=== PATIENT | female | born 1960 | race Caucasian/White ===

== ENCOUNTER → 2023-04-08 | Outpatient (CLI) | payer MEDICARE | LOC: LAB.WCP 08:00 | PROVIDERS: ATTEND Physician Assistant Medical | DX: U07.1 COVID-19 (principal) ==

== ENCOUNTER 2025-02-10 14:29 | Inpatient (IN) ==
--- NOTE | 2025-02-10 14:40 | ED Physician Documentation ---
PD HPI ALTERED MENTAL STATUS Stated complaint Stated Complaint: AMS Chief complaint Chief Complaint: Neuro Additional information Additional information: 65-year-old female with history of type 2 diabetes, renal calculi, breast cancer, cellulitis comes into the emergency department via ambulance today as she was found altered in her hotel room. Her daughter is at bedside who she is here visiting from out of town and she normally lives in [place]. Her daug hter says that she talked to her on the phone yesterday and she seemed to be at baseline today she tried getting a hold of her mother multiple times and was unable to reach her so she had hotel staff to go check on her mom and she I will sign up for him on my way was found down and asking for help. Patient arrives confused she is unable to contribute much to what brings her in today most information is provided by her daughter who is at bedside. Patient is disheveled and very soiled in urine. She is unable to tell me if she is having recent falls but she was found in bed unsure if she is any fevers or chills. [place] Coma Scale Assess Eye opening: Spontaneous Verbal response: Confused Motor response: Obeys Commands Total score: 14 Meds/Allgy Allergies Allergies Allergy/AdvReac Type Severity Reaction Status Date / Time No Known Drug Allergies Allergy Verified 02/10/25 14:45 PFSH Active Problems All Active Problems (Updated 02/10/25 @ 20:38 by Jacki Tabares DNP) Acute metabolic encephalopathy (Acute) Sepsis (Acute) COPD (chronic obstructive pulmonary disease) (Chronic) Aortic valve stenosis (Acute) Pacemaker (Acute) Diabetes mellitus (Chronic) Renal calculus, left (Acute) Acute pyelonephritis (Acute) Social History Social History Smoking Status: Unknown if ever smoked Second hand tobacco smoke exposure: No Do you dip or chew tobacco?: No Do you vape?: No Level: Independent Do you feel safe in your home environment?: Yes History of physical, verbal, emotional, or financial abuse?: No Exam Exam Vital Signs: Vital Signs x48h Temp Pulse Resp BP Pulse Ox 02/10/25 16:51 94 18 168/63 H 95 02/10/25 14:45 89 18 137/76 H 97 02/10/25 14:39 37.0 C 90 18 139/75 H 92 Constitutional abnormal general appearance (disheveled), (chronically ill), (lethargic) and (appears older than stated age), distress noted, abnormal body habitus (overweight), limitations noted (altered mental status) and alert HENMT normocephalic and head/scalp atraumatic Eyes PERRL, EOMs intact bilaterally, conjunctivae normal and alignment normal Neck/C-Spine visual inspection normal Lymph no lymphadenopathy noted Chest inspection of chest normal and palpation of chest normal Respiratory breath sounds equal bilaterally, normal respiratory effort and clear to auscultation bilaterally Cardiovascular normal heart rate noted and regular rhythm noted Gastrointestinal abdomen normal to inspection Genitourinary Left CVA tenderness Neurology no movement abnormality noted, no focal motor deficit noted, speech normal, coordination normal and no pronator drift noted Psychiatry mental status grossly normal, orientation abnormal (disoriented to person) and thought process abnormality noted (confused) and (loose associations) Skin pale Results Vitals Vitals: Vital Signs - 24 hr 02/10/25 14:39 02/10/25 14:45 02/10/25 16:51 Temperature 37.0 C Temperature Source Temporal Artery Scan Pulse Rate 90 89 94 Respiratory Rate 18 18 18 Blood Pressure 139/75 H 137/76 H 168/63 H O2 Saturation 92 97 95 O2 Source Room air Room air Room air Pain Intensity 6 6 0 Oxygen O2 Source Room air Labs Labs: Laboratory Tests 02/10/25 02/10/25 02/10/25 15:24 15:24 15:24 WBC 14.9 H RBC 5.18 Hgb 11.6 L Hct 38.1 MCV 73.6 L MCH 22.4 L MCHC 30.4 L RDW 23.3 H Plt Count 151 Neut # (Auto) Not Reportable Lymph # (Auto) Not Reportable Thayer # (Auto) Not Reportable Eos # (Auto) Not Reportable Baso # (Auto) Not Reportable Absolute Nucleated RBC Not Reportable Total Counted 100 Band Neuts % (Manual) 8 Abnorm Lymph % (Manual) 0 Metamyelocytes % 1 H Nucleated RBC % Not Reportable Neutrophils # (Manual) 13.4 H Lymphocytes # (Manual) 0.6 L Monocytes # (Manual) 0.7 Eosinophils # (Manual) 0.0 Basophils # (Manual) 0.0 Differential Comment MANUAL DIFFERENTIAL WBC Morphology 1+ HYPERSEG NEUT PELGER HUET ANOMALY Platelet Estimate NORMAL (130-450,000) Platelet Morphology 1+ LARGE PLATELETS RBC Morph Micro Appear 2+ ANISOCYTOSIS 1+ MACROCYTOSIS Sodium Potassium Chloride Carbon Dioxide Anion Gap BUN Creatinine Estimated GFR (MDRD) Glucose Lactic Acid Calcium Magnesium Total Bilirubin AST ALT Alkaline Phosphatase Total Creatine Kinase Total Protein Albumin Globulin Albumin/Globulin Ratio TSH Free T4 Direct Urine Color Urine Clarity Urine pH Ur Specific Page Urine Protein Urine Glucose (UA) Urine Ketones Urine Occult Blood Urine Nitrite Urine Bilirubin Urine Urobilinogen Ur Leukocyte Esterase Urine RBC Urine WBC Urine WBC Clumps Ur Squamous Epith Cells Urine Bacteria Urine Culture Comments Urine Opiates Screen Ur Buprenorphine Scrn Ur Oxycodone Screen Urine Methadone Screen Urine Fentanyl Screen Ur Barbiturates Screen Ur Tricyclics Screen Ur Phencyclidine Scrn Ur Amphetamine Screen U Methamphetamines Scrn U Benzodiazepines Scrn Urine Cocaine Screen U Cannabinoids Screen Ur Drug Screen Comment Ethyl Alcohol Serum Ketones 02/10/25 02/10/25 02/10/25 15:24 15:24 15:25 WBC RBC Hgb Hct MCV MCH MCHC RDW Plt Count Neut # (Auto) Lymph # (Auto) Thayer # (Auto) Eos # (Auto) Baso # (Auto) Absolute Nucleated RBC Total Counted Band Neuts % (Manual) Abnorm Lymph % (Manual) Metamyelocytes % Nucleated RBC % Neutrophils # (Manual) Lymphocytes # (Manual) Monocytes # (Manual) Eosinophils # (Manual) Basophils # (Manual) Differential Comment WBC Morphology Platelet Estimate Platelet Morphology RBC Morph Micro Appear 1+ MICROCYTOSIS 1+ POLYCHROMASIA Sodium 139 Potassium 4.1 Chloride 104 Carbon Dioxide 26 Anion Gap 9.0 BUN 29 H Creatinine 1.0 Estimated GFR (MDRD) 56 L Glucose 359 H Lactic Acid 1.9 Calcium 9.1 Magnesium 1.8 Total Bilirubin 0.6 AST 25 ALT 23 Alkaline Phosphatase 122 H Total Creatine Kinase 183 Total Protein 6.3 L Albumin 3.5 Globulin 2.8 Albumin/Globulin Ratio 1.3 TSH 10.27 H Free T4 Direct 0.66 Urine Color Urine Clarity Urine pH Ur Specific Page Urine Protein Urine Glucose (UA) Urine Ketones Urine Occult Blood Urine Nitrite Urine Bilirubin Urine Urobilinogen Ur Leukocyte Esterase Urine RBC Urine WBC Urine WBC Clumps Ur Squamous Epith Cells Urine Bacteria Urine Culture Comments Urine Opiates Screen Ur Buprenorphine Scrn Ur Oxycodone Screen Urine Methadone Screen Urine Fentanyl Screen Ur Barbiturates Screen Ur Tricyclics Screen Ur Phencyclidine Scrn Ur Amphetamine Screen U Methamphetamines Scrn U Benzodiazepines Scrn Urine Cocaine Screen U Cannabinoids Screen Ur Drug Screen Comment Ethyl Alcohol < 10.0 Serum Ketones NEGATIVE 02/10/25 16:00 WBC RBC Hgb Hct MCV MCH MCHC RDW Plt Count Neut # (Auto) Lymph # (Auto) Thayer # (Auto) Eos # (Auto) Baso # (Auto) Absolute Nucleated RBC Total Counted Band Neuts % (Manual) Abnorm Lymph % (Manual) Metamyelocytes % Nucleated RBC % Neutrophils # (Manual) Lymphocytes # (Manual) Monocytes # (Manual) Eosinophils # (Manual) Basophils # (Manual) Differential Comment WBC Morphology Platelet Estimate Platelet Morphology RBC Morph Micro Appear Sodium Potassium Chloride Carbon Dioxide Anion Gap BUN Creatinine Estimated GFR (MDRD) Glucose Lactic Acid Calcium Magnesium Total Bilirubin AST ALT Alkaline Phosphatase Total Creatine Kinase Total Protein Albumin Globulin Albumin/Globulin Ratio TSH Free T4 Direct Urine Color YELLOW Urine Clarity CLOUDY Urine pH 6.0 Ur Specific Page 1.025 Urine Protein 100 H Urine Glucose (UA) >=1000 H Urine Ketones 15 H Urine Occult Blood LARGE Urine Nitrite POSITIVE H Urine Bilirubin NEGATIVE Urine Urobilinogen 0.2 (NORMAL) Ur Leukocyte Esterase TRACE H Urine RBC 11-25 H Urine WBC 11-25 H Urine WBC Clumps PRESENT Ur Squamous Epith Cells FEW Squamous Urine Bacteria Many H Urine Culture Comments INDICATED Urine Opiates Screen POSITIVE H Ur Buprenorphine Scrn NEGATIVE Ur Oxycodone Screen NEGATIVE Urine Methadone Screen NEGATIVE Urine Fentanyl Screen Negative Ur Barbiturates Screen NEGATIVE Ur Tricyclics Screen NEGATIVE Ur Phencyclidine Scrn NEGATIVE Ur Amphetamine Screen NEGATIVE U Methamphetamines Scrn NEGATIVE U Benzodiazepines Scrn NEGATIVE Urine Cocaine Screen NEGATIVE U Cannabinoids Screen NEGATIVE Ur Drug Screen Comment CUTOFF CONC BELOW: Ethyl Alcohol Serum Ketones Rads (name of study) Head CT without: Relevant Findings:: Final report received and EMP independent interpretation of test Interpretation: IMPRESSION: No imaging explanation is found for the patient's presenting symptoms. To the limits of this noncontrast study, no findings of masses or mass effect can be seen. CT angio chest: Relevant Findings:: Final report received and EMP independent interpretation of test Interpretation: IMPRESSION: No pulmonary embolus. No acute cardiopulmonary process. CT abd/pelvis W: Relevant Findings:: Final report received and EMP independent interpretation of test Interpretation: IMPRESSION: Delayed left nephrogram with a 13 mm nonobstructive stone in the left renal pelvis. Mild stranding of the left ureter. Correlate for clinical signs of pyelonephritis. chest XR: Relevant Findings:: Final report received and EMP independent interpretation of test Interpretation: IMPRESSION: Moderate perihilar airspace opacities with bilateral interstitial opacities and trace bilateral pleural effusions. Findings are concerning for pulmonary edema. PD Medical Decision Making ED course ED course: 65-year-old female presents with altered mental status of unclear onset. On arrival, she was disheveled and soiled. Labs revealed leukocytosis with neutrophilia, mild anemia, elevated BUN, hyperglycemia, and urinalysis positive for nitrites and leukocytes, concerning for urinary tract infection. Imaging included a chest X-ray showing moderate perihilar airspace opacities bilaterally with trace pleural effusions, a CT abdomen/pelvis demonstrating a 13 mm nonobstructive left renal pelvis stone with mild ureteral stranding, a CT angiogram of the chest without evidence of pulmonary embolism, and a normal head CT. The patient reported left CVA tenderness and had intermittent hypoxia. She was started on IV ceftriaxone in the ED after two sets of blood cultures were collected. On-call urologist Dr. Tolliver plans left ureteral stent placement tomorrow to aid stone passage. The patient was admitted to the hospitalist service under Dr. Cedric Anthony for continued management, including treatment of infection, monitoring of mental status, supportive care for hyperglycemia, and coordination of urologic intervention. Discharge Plan Discharge Patient Disposition: 67 [facility] DC/Xfer Clinical Impression: Acute pyelonephritis, Renal calculus, left, Acute metabolic encephalopathy Diabetes mellitus Qualifiers: Diabetes mellitus type: type 2 Diabetes mellitus terminal carman insulin use: without nursing home use Diabetes mellitus complication status: without complication Qualified Code(s): E11.9 - Type 2 diabetes mellitus without complications Interventions: ED Admission Assessment Last Done: 02/10/25 17:52 Vitals documented within 30 minutes of discharge?: Yes
--- OUTSIDE RECORDS SUMMARY | 2025-02-10 14:52 | EXTERNAL MEDICAL SUMMARY RPT | Continuity of Care Document ---
Author Organization [place] Address [address] [address] Phone Care Team Providers Care Facility Engineer Name Role Phone Joe Garcia Unavailable Unavailable Medications date description facility (no date) mobisyl 10 % topical cream [facility] (no date) insulin, aspart, hum an 100 unt/ml per 3 ml pen injector [facility] (no date) insulin, aspart, hum an 100 unt/ml per 3 ml pen injector [facility] (no date) 3 ml insulin aspart, human 100 unt/ml pen injector [novolog] [facility] (no date) 3 ml insulin aspart, human 100 unt/ml pen injector [novolog] [facility] 2024-12-10 00:00 microencapsulated po tassium chloride 10 meq extended release oral tablet [facility] Polatis [facility] (no date) lisinopril 40 mg oral tablet [facility] (no date) lisinopril 40 mg oral tablet [facility] (no date) ondansetron 4 mg oral tablet [facility] (no date) ondansetron 4 mg oral tablet [facility] (no date) [id number] 200 actuat albuterol 0.09 mg/actuat metered dose inhaler [facility] (no date) [id number] 200 actuat albuterol 0.09 mg/actuat metered dose inhaler [facility] 2024-12-10 00:00 torsemide 40 mg oral tablet Fra FlavorvanilmdFIZZA [facility] 2024-12-10 00:00 torsemide 40 mg oral tablet [so aanz] [facility] 2024-12-06 00:00 betamethasone 0.5 mg /ml (betamethasone dipropionate 0.64 mg/ml) / clotrimazole 10 mg/ml topical cream [facility] 2024-12-06 00:00 betamethasone 0.5 mg /ml (betamethasone dipropionate 0.64 mg/ml) / clotrimazole 10 mg/ml topical cream [facility] (no date) bisacodyl 5 mg delay ed release oral tablet [facility] (no date) calcium carbonate 50 0 mg (equivalent to calcium 200 mg) chewable tablet [facility] (no date) calcium carbonate 50 0 mg (equivalent to calcium 200 mg) chewable tablet [facility] (no date) sennosides, residential 8.6 mg oral tabl et [facility] (no date) trolamine salicylate 100 mg/ml topical cream [facility] (no date) simethicone 80 mg chewable table t [facility] (no date) senokot 8.6 mg oral tablet [facility] 2024-11-15 00:00 pregabalin 150 mg oral capsule [facility] 2024-11-15 00:00 pregabalin 150 mg oral capsule [facility] (no date) duloxetine 30 mg del ayed release oral capsule [facility] (no date) duloxetine 30 mg del ayed release oral capsule [facility] (no date) duloxetine 60 mg (as duloxetine hcl 67.3 mg) delayed release oral capsule [facility] (no date) duloxetine 60 mg (as duloxetine hcl 67.3 mg) delayed release oral capsule [facility] (no date) amiodarone hydrochlo ride 200 mg oral tablet [facility] (no date) amiodarone hydrochlo ride 200 mg oral tablet [facility] 2024-11-17 00:00 acetaminophen 325 mg / hydrocodone bitartrate 5 mg oral tablet [facility] 2024-11-17 00:00 acetaminophen 325 mg / hydrocodone bitartrate 5 mg oral tablet [facility] (no date) polyethylene glycol 3350 17 gm powder for oral solution [facility] (no date) polyethylene glycol 3350 17 gm powder for oral solution [facility] Problems date description facility 2024-12-10 00:00 iron deficiency anem ia secondary to inadequate dietary iron intake (disorder) [facility] 2024-12-10 00:00 iron deficiency anem ia secondary to inadequate dietary iron intake (disorder) [facility] 2024-12-10 00:00 Iron deficiency anem ia secondary to inadequate dietary iron intake [facility] 2024-12-10 00:00 Iron deficiency anem ia secondary to inadequate dietary iron intake [facility] Procedures date description facility 2024-12-10 00:00 HC FERRITIN SERUM [facility] 2024-12-10 00:00 HC IRON SERUM [facility] 2024-12-10 00:00 HC EKG 12 LEAD [facility] Results/Labs test date facility value unit notes Result panel 1 Specimen collection (procedure) (no date) [facility] (missing) (missing) (missing) Result panel 2 Specimen collection (procedure) (no date) [facility] (missing) (missing) (missing) Result panel 3 (unavailable) 2024-12-10 20:42:16 [facility] (missing) (missing) (missing) Result panel 4 Iron 2024-12-10 21:13:51 [facility] 37 ug/dL (missing) Result panel 5 TIBC 2024-12-10 21:13:51 [facility] 387 ug/dL (missing) Result panel 6 Iron % Saturation 2024-12-10 21:13:51 [facility] 10 % (missing) Result panel 7 (unavailable) 2024-12-10 21:13:51 [facility] Abnormal (missing) (missing) Result panel 8 Ferritin 2024-12-10 21:15:12 [facility] 20 ng/mL (missing) Result panel 9 (unavailable) 2024-12-10 21:15:12 [facility] Normal (missing) (missing) Social History date description facility Vital Signs date measurement value units 2024-12-10 00:00 BMI 48.16 kg/m2 2024-12-10 00:00 BP_diastolic 64 mmHg 2024-12-10 00:00 BP_systolic 126 mmHg 2024-12-10 00:00 heart_rate 83 /min 2024-12-10 00:00 height_metric 154.9 cm 2024-12-10 00:00 o2_saturation 93 % 2024-12-10 00:00 respiration_rate 18 /min 2024-12-10 00:00 temperature_metric 35.78 C 2024-12-10 00:00 weight_metric 115.622 kg 2024-12-10 00:00 BMI 47.97 kg/m2 2024-12-10 00:00 BP_diastolic 74 mmHg 2024-12-10 00:00 BP_systolic 124 mmHg 2024-12-10 00:00 heart_rate 78 /min 2024-12-10 00:00 height_metric 154.9 cm 2024-12-10 00:00 o2_saturation 94 % 2024-12-10 00:00 respiration_rate 16 /min 2024-12-10 00:00 temperature_metric 36.5 C 2024-12-10 00:00 weight_metric 115.168 kg
--- NOTE | 2025-02-10 15:28 | XRAY Report ---
PROCEDURE: XR Chest 1V INDICATIONS: Sepsis TECHNIQUE: One view of the chest was acquired. COMPARISON: None. FINDINGS: Surgical changes and devices: Dual-lead pacemaker device with tips overlying the right atrium and right ventricle. Right chest port central venous catheter with tip in the right atrium. Aortic valve replacement. Lungs and pleura: Moderate lung volumes with moderate perihilar airspace opacities and bilateral interstitial opacities. Trace bilateral pleural effusions. No pneumothorax Mediastinum: Mediastinal contours appear normal. Heart size is normal. Bones and chest wall: No suspicious bony lesions. Surgical clips in the left axilla.. IMPRESSION: Moderate perihilar airspace opacities with bilateral interstitial opacities and trace bilateral pleural effusions. Findings are concerning for pulmonary edema. Reviewed by: Cornell Millan MD on 02/10/2025 3:24 PM PDT Approved by: Cornell Millan MD on 02/10/2025 3:24 PM PDT Station ID: [id number]
[2025-02-10 15:32] LABS: HCT - HEMATOCRIT 38.1 % (37.0-47.0); HGB - HEMOGLOBIN 11.6 g/dL (12.0-16.0); PLT - PLATELET COUNT 151 10^3/uL (130-450); RED CELL DISTRIBUTION WIDTH 23.3 % (12.0-15.0)
[2025-02-10 15:33] LABS: ABNORMAL LYMPHS % (MANUAL) 0 %; BASOPHILS # (MANUAL) 0.0 10^3/uL (0-0.1); EOSINOPHILS # (MANUAL) 0.0 10^3/uL (0-0.7)
[2025-02-10 15:51] LABS: ALT ALANINE AMINOTRANSFERASE 23 IU/L (10-60); AST ASPARTATE AMINOTRANSFERASE 25 IU/L (10-42); BUN - BLOOD UREA NITROGEN 29 mg/dL (6-20); CARBON DIOXIDE - CO2 26 mmol/L (21-32); CK- CREATINE KINASE 183 IU/L (30-223); CREATININE 1.0 mg/dL (0.6-1.3); ETOH - ETHANOL < 10.0 mg/dL; GFR - MDRD 56 (>89)
[2025-02-10 16:18] LABS: GLUCOSE, URINE (UA) >=1000 mg/dL (NEGATIVE); KETONES,URINE (UA) 15 mg/dL (NEGATIVE); OCCULT BLOOD,URINE LARGE (NEGATIVE)
[2025-02-10 16:31] LABS: SQUAMOUS EPITHELIAL CELL,UR FEW Squamous (<= Few); WBC CLUMPS,URINE PRESENT
--- NOTE | 2025-02-10 16:37 | CT Report ---
PROCEDURE: CT Head WO INDICATIONS: AMS TECHNIQUE: CT of the head was performed, without intravenous contrast. Reformats: Coronal and sagittal. For radiation dose reduction, the following was used: automated exposure control, adjustment of mA and/or kV according to patient size. COMPARISON: Correlation is made with the accompanying imaging. FINDINGS: Image quality: There is streak artifact seen through the skull base. CSF spaces: Basal cisterns are patent. No extra-axial fluid collections. Ventricles are normal in size and shape. Brain: No midline shift. No intracranial mass effect or hemorrhage. Matthews- white matter interface is normal. Skull and face: Calvarium and visualized facial bones are intact, without suspicious lesions. Hyperostosis frontalis is incidentally noted, which is not frankly abnormal for a female patient of this age. Sinuses: Visualized sinuses and mastoids are clear. IMPRESSION: No imaging explanation is found for the patient's presenting symptoms. To the limits of this noncontrast study, no findings of masses or mass effect can be seen. Reviewed by: Jack Robles MD on 02/10/2025 3:34 PM NOE Approved by: Jack Robles MD on 02/10/2025 3:34 PM NOE Station ID: [id number]
[2025-02-10 16:41] LABS: LYMPHOCYTES # (MANUAL) 0.6 10^3/uL (1.5-3.5); MONOCYTES # (MANUAL) 0.7 10^3/uL (0.0-1.0); NEUTROPHILS # (MANUAL) 13.4 10^3/uL (1.5-6.6)
--- NOTE | 2025-02-10 16:45 | CT Report ---
PROCEDURE: CT Angio Chest INDICATIONS: r/o PE, hypoxic CONTRAST: omni 300 100 ml TECHNIQUE: After the administration of intravenous contrast images of the chest were acquired. 3-dimensional coronal oblique maximum intensity projection (MIP) reformats, axial MIP, and coronal and sagittal MPR reformats were then performed through the chest. For radiation dose reduction, the following was used: automated exposure control, adjustment of mA and/or kV according to patient size. COMPARISON: FINDINGS: Image quality: Diagnostic Large vessels: No filling defects within the opacified pulmonary arteries, accounting for motion and contrast timing. No evidence of acute aortic syndrome or aortic aneurysm. The left vertebral artery originates from the aortic arch, normal variant. Lungs and pleura: No consolidation. Mosaic attenuation throughout both lungs, likely secondary to exhalation. Minimal bronchiectasis in the posterior left lower lobe, likely sequela of remote infection/inflammation. no pleural effusions. No pneumothorax. No suspicious pulmonary nodules which require follow up. Mediastinum: Heart size is enlarged. Changes of aortic valve replacement. No pericardial effusion. No large vessel abnormality. No mediastinal adenopathy by size criteria. Chest wall and lower neck: Thyroid is unremarkable. No axillary or supraclavicular adenopathy by size. Left chest dual-lead pacemaker device with tips in the right atrial appendage and right ventricle. 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 Bones: No aggressive osseous abnormality. Upper Abdomen: Separately dictated IMPRESSION: No pulmonary embolus. No acute cardiopulmonary process. Reviewed by: Cornell Millan MD on 02/10/2025 4:41 PM PDT Approved by: Cornell Millan MD on 02/10/2025 4:41 PM PDT Station ID: [id number]
--- NOTE | 2025-02-10 16:48 | CT Report ---
PROCEDURE: CT Abdomen/Pelvis W INDICATIONS: abd pain, ams CONTRAST: omni 300 100 ml TECHNIQUE: After the administration of intravenous contrast, a CT scan of the abdomen and pelvis was performed. Images were recorded and evaluated at appropriate window settings. Reformats: coronal and sagittal. For radiation dose reduction, the following was used: automated exposure control, adjustment of mA and/or kV according to patient size. COMPARISON: Same day CT chest FINDINGS: Image quality: Diagnostic. Lower chest: Separately dictated Liver: No solid mass. Gallbladder: No radiopaque stones or wall thickening. Biliary tree: No intrahepatic or extrahepatic dilation, accounting for age. Spleen: No splenomegaly. Pancreas: No pancreatic ductal dilation. Adrenals: No adrenal nodule. Kidneys and ureters: No right hydronephrosis or nephrolithiasis. No solid renal mass. Mildly delayed left nephrogram with a 13 mm stone in the left renal pelvis, which measures 803 Hounsfield units. Mild stranding of the left ureter which is nondilated. Stomach, bowel and peritoneum: No gastric or small bowel dilation. No abnormal wall thickening. No pathologic free fluid. Lymph nodes: No central or retroperitoneal adenopathy. Vessels: No infrarenal aortic aneurysm. Patent portal vein. PELVIS Reproductive organs: Unremarkable. Bladder: Decompressed by Cr catheter. No stone. Pelvic lymph nodes: No pelvic adenopathy by size criteria. Bones: No aggressive osseous abnormality. Degenerative changes at L1-2. Other: No significant ventral or inguinal hernia. IMPRESSION: Delayed left nephrogram with a 13 mm nonobstructive stone in the left renal pelvis. Mild stranding of the left ureter. Correlate for clinical signs of pyelonephritis. Reviewed by: Cornell Millan MD on 02/10/2025 4:45 PM PDT Approved by: Cornell Millan MD on 02/10/2025 4:45 PM PDT Station ID: [id number]
[2025-02-10 16:57] LABS: PLATELET MORPHOLOGY 1+ LARGE PLATELETS (NORMAL)
[2025-02-10 16:58] LABS: PLATELET ESTIMATE, MANUAL NORMAL (130-450,000) (NORMAL)
[2025-02-10 16:59] LABS: BAND NEUTROPHILS % (MANUAL) 8 %; LYMPHOCYTES % (MANUAL) 4 %; METAMYELOCYTES % (MANUAL) 1 %
--- NOTE | 2025-02-10 17:10 | HISTORY & PHYSICAL EXAMINATION ---
Chief Complaint Chief Complaint Chief Complaint: Confusion History of Present Illness Admitted From Admitted From:: Home History Obtained From Records Reviewed: EMR History obtained from: Patient, patient's daughter, patient's friend Exam Limitations: Patient confused and a poor historian History of Present Illness HPI Comment/Other: Patient is a 65-year-old female with a history of bladder prolapse, previous renal stones, uncontrolled insulin-dependent diabetes mellitus who presents with confusion, lethargy. Patient is a poor historian as she is confused, so majority of history is taken from patient's daughter as well as her friend who is listed as her emergency contact. Patient lives in [place], and is visiting her daughter who lives in [place]. Her daughter visited her yesterday, and she was her normal self. Today, she tried to get a hold of her mother multiple times and was unable to reach her. She asked the hotel staff to go check on her mom, and she was found down, confused, disheveled, soiled in urine and asking for help. Patient herself states that she does not recall what happened. She endorses fevers, chills, dysuria. She feels disoriented and confused. I also spoke with her emergency contactshe states that she is an insulin- dependent diabetic. Her glucometer stopped working a few days ago. She worries that she has not been taking care of this. She also takes Jardiance alongside insulin for her diabetes. She also has a history of aortic stenosis and recently had a TAVR. She had a pacemaker placed after the fact, and has been doing well otherwise. She also has COPD but does not use home oxygen (she did previously, but after the valve replacement, has not required it). Medications are unclear. She has had no known drug allergies. Surgical history includes TAVR. She denies any alcohol, tobacco, recreational drug use. She usually is independent of ADLs, but does get dyspneic with exertion, per her friend. Meds/Allgy Allergies Allergies Allergy/AdvReac Type Severity Reaction Status Date / Time No Known Drug Allergies Allergy Verified 02/10/25 14:45 [facility] Active Problems All Active Problems (Updated 02/10/25 @ 17:41 by Ofe Rodriges MD) Acute metabolic encephalopathy (Acute) Sepsis (Acute) COPD (chronic obstructive pulmonary disease) (Chronic) Aortic valve stenosis (Acute) Pacemaker (Acute) Diabetes mellitus (Chronic) Renal calculus, left (Acute) Acute pyelonephritis (Acute) Social History Social History Do you feel safe in your home environment?: Yes (unknown) History of physical, verbal, emotional, or financial abuse?: No (unknown) Review of Systems Unable to obtain full meaningful review of system as patient is confused. She endorses fevers, chills, dysuria, urinary incontinence, as well as weakness. Exam Exam Vital Signs: Vital Signs x48h Temp Pulse Resp BP Pulse Ox 02/10/25 17:23 100.1 F 02/10/25 16:51 94 18 168/63 H 95 02/10/25 14:45 89 18 137/76 H 97 02/10/25 14:39 98.6 F 90 18 139/75 H 92 Constitutional normal general appearance, no apparent distress, abnormal body habitus (overweight), no limitations and level of alertness abnormal (confused) HENMT normocephalic, head/scalp atraumatic and hearing grossly normal bilaterally Eyes PERRL, EOMs intact bilaterally and conjunctivae normal Neck/C-Spine visual inspection normal, trachea midline and cervical spine nontender Chest inspection of chest normal Respiratory breath sounds equal bilaterally, normal respiratory effort, clear to auscultation bilaterally, no wheezes, no rales and no retractions Cardiovascular normal heart rate noted, regular rhythm noted, no gallop, no rub and murmur noted (systolic) Gastrointestinal abdomen normal to inspection, abdomen soft to palpation, nontender to palpation and normoactive bowel sounds Genitourinary no CVA tenderness and bladder abnormal to palpation Some tenderness to suprapubic palpation Back/Pelvis spine normal to inspection Extremities normal to inspection, normal to palpation, no tenderness and full ROM Neurology no movement abnormality noted and no focal motor deficit noted Psychiatry mental status abnormal, orientation abnormal (disoriented to time), thought process abnormality noted (confused) and (loose associations), cooperative and affect normal Skin skin color normal, no rash, no lesions and no wounds Conclusion/Plan Problem List (1) Sepsis: Qualifiers: Sepsis type: sepsis due to unspecified organism Sepsis acute organ dysfunction status: unspecified Qualified Code(s): A41.9 - Sepsis, unspecified organism (2) Acute pyelonephritis: (3) Renal calculus, left: Plan: Patient presents with tachycardia, leukocytosis, temperature as high as 100.1. CT abdomen/pelvis shows delayed left nephrogram with a 13 mm nonobstructive stone in the left renal pelvis. Mild stranding of the left ureter. UA positive for infection. Urine culture, blood cultures ordered. Continue Rocephin. Continue gentle IVF rehydration. Urology consulted. (4) Acute metabolic encephalopathy: Plan: Mental status changes attributed to active infection and hyperglycemia. CT head without acute infarct. CTA ordered. MUDS, TSH ordered as well. (5) Diabetes mellitus: Plan: Continue sliding scale, hypoglycemia protocol, carb-controlled diet. Qualifiers: Diabetes mellitus type: type 2 Diabetes mellitus residential insulin use: without termite helper use Diabetes mellitus complication status: without complication Qualified Code(s): E11.9 - Type 2 diabetes mellitus without complications (6) Aortic valve stenosis: Plan: Stable. Qualifiers: Cardiac valve disease etiology: etiology unspecified Qualified Code(s): I35.0 - Nonrheumatic aortic (valve) stenosis (7) Pacemaker: Plan: Stable. (8) COPD (chronic obstructive pulmonary disease): Plan: Stable. Not in active exacerbation. Continue Duonebs as needed. Qualifiers: COPD type: unspecified COPD Qualified Code(s): J44.9 - Chronic obstructive pulmonary disease, unspecified Lab Results Lab results reviewed: Yes 02/10/25 15:24 02/10/25 15:24 Diagnostic Imaging Results Diagnostic Imaging Results: positive Final report reviewed EKG Results EKG Interpreted Independently: Yes
[2025-02-10] MEDS: cefTRIAXone 2 GM in SODIUM CHLORIDE 0.9% MINIBAG 100 ML IV STA (17:34)
[2025-02-10] MEDS ORDERED: IPRATROPIUM/ALBUTEROL 3 ML NEB INH PRN (17:39)
[2025-02-10 18:24] LABS: AMPHETAMINE SCREEN,URINE NEGATIVE (NEGATIVE); BARBITURATE SCREEN,UR NEGATIVE (NEGATIVE); BENZODIAZEPINES SCREEN, URINE NEGATIVE (NEGATIVE); BUPRENORPHINE SCREEN, URINE NEGATIVE (NEGATIVE); COCAINE SCREEN URINE NEGATIVE (NEGATIVE); METHADONE SCREEN, URINE NEGATIVE (NEGATIVE); METHAMPHETAMINES SCREEN, URINE NEGATIVE (NEGATIVE); OPIATE SCREEN, URINE POSITIVE (NEGATIVE); THC CANNABINOID SCREEN, URINE NEGATIVE (NEGATIVE)
[2025-02-10] MEDS ORDERED: SODIUM CHLORIDE FLUSH 0.9% 10 ML SYRINGE IVP PRN (18:50)
[2025-02-10] MEDS ORDERED: ONDANSETRON 4 MG/2 ML VIAL IVP PRN (18:50)
[2025-02-10] MEDS ORDERED: ONDANSETRON ODT 4 MG TABLET TL PRN (18:50)
[2025-02-10] MEDS: ACETAMINOPHEN 325 MG TABLET PO PRN (19:19)
[2025-02-10] MEDS: LACTATED RINGERS 1,000 ML IV SCH (19:21)
[2025-02-10] MEDS: INSULIN LISPRO 300 UNIT/3 ML PEN SUBQ SCH (22:35)
[2025-02-11] MEDS: SODIUM CHLORIDE FLUSH 0.9% 10 ML SYRINGE IVP SCH (00:23)
[2025-02-11 05:05] LABS: HCT - HEMATOCRIT 34.7 % (37.0-47.0); HGB - HEMOGLOBIN 10.1 g/dL (12.0-16.0); PLT - PLATELET COUNT 129 10^3/uL (130-450); RED CELL DISTRIBUTION WIDTH 23.0 % (12.0-15.0)
[2025-02-11 05:20] LABS: ALT ALANINE AMINOTRANSFERASE 19.0 IU/L (10-60); AST ASPARTATE AMINOTRANSFERASE 19.0 IU/L (10-42); BUN - BLOOD UREA NITROGEN 29.0 mg/dL (6-20); CARBON DIOXIDE - CO2 23.0 mmol/L (21-32); CREATININE 1.0 mg/dL (0.6-1.3); GFR - MDRD 56.0 (>89)
[2025-02-11] MEDS: cefTRIAXone 1 GM VIAL IVP SCH (08:26)
[2025-02-11] MEDS: INSULIN GLARGINE-YFGN 300 UNIT/3 ML PEN SUBQ STA (08:27)
--- NOTE | 2025-02-11 08:27 | PROVIDER PROGRESS NOTE ---
Subjective Prog Note Date Prog Note Date: 02/11/25 Prog Note Time: 08:20 Subjective Pt reports feeling: Improved Subjective: Patient appears more alert today. She still has mid-abdominal pain which is comparable to yesterday. Has only been receiving scheduled Tylenol. Takes Lyrica and scheduled dilaudid for her peripheral neuropathy at home. Reports feeling subjectively warm, mild headache. No chills. No nausea or vomit. Has hager catheter in place. No cough, chest pain, diarrhea, or other skin concerns. Current Medications Current Medications Current Medications: Current Medications Generic Name Dose Route Start Last Admin Trade Name Freq PRN Reason Stop Dose Admin Acetaminophen 650 mg 02/10/25 18:50 02/11/25 05:20 Acetaminophen 325 Mg Tablet PO 650 mg Q4HR PRN Administration Pain 1 to 4, or Fever Albuterol/Ipratropium 3 ml 02/10/25 17:39 Ipratropium/Albuterol 3 Ml Neb INH RTQID PRN Shortness of Air/Wheezing Ceftriaxone Sodium 1 gm 02/11/25 09:00 Ceftriaxone 1 Gm Vial IVP DAILY [facility] Lactated Ringer's 1,000 mls @ 100 mls/hr 02/10/25 18:50 02/11/25 05:20 Lr IV 100 mls/hr .Q10H SHELLI Administration Insulin Human Lispro 1 - 5 unit 02/10/25 21:00 02/10/25 22:35 Insulin Lispro 300 Unit/3 Ml Pen SUBQ 5 unit 0800,1200,1700,2100 [facility] Administration Protocol Ondansetron HCl 4 mg 02/10/25 18:50 Ondansetron Odt 4 Mg Tablet TL Q6HR PRN Nausea / Vomiting Ondansetron HCl 4 mg 02/10/25 18:50 Ondansetron 4 Mg/2 Ml Vial IVP Q6HR PRN Nausea / Vomiting Sodium Chloride 10 ml 02/10/25 18:50 Sodium Chloride Flush 0.9% 10 Ml Syringe IVP PRN PRN NEEDED PER PROVIDER ORDERS Sodium Chloride 10 ml 02/11/25 01:00 02/11/25 00:23 Sodium Chloride Flush 0.9% 10 Ml Syringe IVP Not Given 0100,0900,1700 [facility] Objective Vital Signs/Intake & Output Reviewed Vital Signs: Yes Vital Signs: Vital Signs x48h Temp Pulse Resp BP Pulse Ox 10/27/25 04:55 36.4 C L 88 20 149/67 H 93 02/11/25 00:25 37.2 C 91 22 111/58 L 92 Intake & Output: Intake & Output 02/08/25 02/09/25 02/10/25 02/11/25 23:59 23:59 23:59 23:59 Intake Total 820 / 820 998 / 998 Output Total 425 / 425 550 / 550 Balance 395 / 395 448 / 448 Weight (kg) 108.5 kg Objective Comments/Other: Gen: Lying in bed with cold wet towels over her face. Groaning loudly but in no acute distress. Heent: Normocephalic/atraumatic, normal appearance of external ears and nose. Cardiac: Regular rate and rhythm. No murmurs appreciated. No visible JVP elevation. Equal radial pulses 2+, non-pitting edema of lower legs Pulm: Normal respirations without increased effort. Clear to auscultation throughout without wheezes, rales or rhonchi. Abdomen: Large, rounded. Tender to palpation over mid abdomen with slight guarding. Otherwise soft and nontender throughout. Extremities: Moves all 4 extremities equally. Normal tone. Neuro: A&Ox4, improved from yesterday. Face symmetric, CN II through XII intact grossly. No focal neurologic deficits. Psych: Good fund of knowledge. Judgment intact. Lab Results 02/11/25 04:52 02/11/25 04:52 Other Labs: Lab Results x24hrs 02/11/25 02/11/25 02/10/25 Range/Units 08:10 04:52 20:59 WBC 11.4 H (4.8-10.8) x10^3/uL RBC 4.70 (4.20-5.40) 10^6/uL Hgb 10.1 L (12.0-16.0) g/dL Hct 34.7 L (37.0-47.0) % MCV 73.8 L (81.0-99.0) fL MCH 21.5 L (27.0-31.0) pg MCHC 29.1 L (32.0-36.0) g/dL RDW 23.0 H (12.0-15.0) % Plt Count 129 L (130-450) 10^3/uL Neut # (Auto) Lymph # (Auto) [place] # (Auto) Eos # (Auto) Baso # (Auto) Absolute Nucleated RBC Total Counted Band Neuts % (Manual) (0 - 10) % Abnorm Lymph % (Manual) % Metamyelocytes % ( - 0) % Nucleated RBC % Neutrophils # (Manual) (1.5-6.6) 10^3/uL Lymphocytes # (Manual) (1.5-3.5) 10^3/uL Monocytes # (Manual) (0.0-1.0) 10^3/uL Eosinophils # (Manual) (0-0.7) 10^3/uL Basophils # (Manual) (0-0.1) 10^3/uL Differential Comment WBC Morphology (NORMAL) Platelet Estimate (NORMAL) Platelet Morphology (NORMAL) RBC Morph Micro Appear (NORMAL) Sodium 136 (135-145) mmol/L Potassium 3.4 L (3.5-4.5) mmol/L Chloride 104 (101-111) mmol/L Carbon Dioxide 23 (21-32) mmol/L Anion Gap 9.0 (6-13) BUN 29 H (6-20) mg/dL Creatinine 1.0 (0.6-1.3) mg/dL Estimated GFR (MDRD) 56 L (>89) Glucose 375 H (74-104) mg/dL POC Whole Bld Glucose 327 358 (70-100) mg/dL Lactic Acid (0.5-2.2) mmol/L Calcium 8.3 L (8.5-10.3) mg/dL Magnesium 1.8 (1.7-2.3) mg/dL Total Bilirubin 0.5 (0.2-1.0) mg/dL AST 19 (10-42) IU/L ALT 19 (10-60) IU/L Alkaline Phosphatase 109 (42-121) IU/L Total Creatine Kinase (30-223) IU/L Total Protein 5.3 L (6.4-8.9) g/dL Albumin 3.0 L (3.2-5.5) g/dL Globulin 2.3 (2.1-4.2) g/dL Albumin/Globulin Ratio 1.3 (1.0-2.2) TSH (0.34-5.60) uIU/mL Free T4 Direct (0.58-1.64) ng/dL Urine Color Urine Clarity (CLEAR) Urine pH (5.0-7.5) PH Ur Specific [place] (1.002-1.030) Urine Protein (NEGATIVE) mg/dL Urine Glucose (UA) (NEGATIVE) mg/dL Urine Ketones (NEGATIVE) mg/dL Urine Occult Blood (NEGATIVE) Urine Nitrite (NEGATIVE) Urine Bilirubin (NEGATIVE) Urine Urobilinogen (NORMAL) E.U./dL Ur Leukocyte Esterase (NEGATIVE) Urine RBC (0-5) /HPF Urine WBC (0-5) /HPF Urine WBC Clumps Ur Squamous Epith Cells (<= Few) Urine Bacteria (None Seen) /HPF Urine Culture Comments Urine Opiates Screen (NEGATIVE) Ur Buprenorphine Scrn (NEGATIVE) Ur Oxycodone Screen (NEGATIVE) Urine Methadone Screen (NEGATIVE) Urine Fentanyl Screen (NEGATIVE) Ur Barbiturates Screen (NEGATIVE) Ur Tricyclics Screen (NEGATIVE) Ur Phencyclidine Scrn (NEGATIVE) Ur Amphetamine Screen (NEGATIVE) U Methamphetamines Scrn (NEGATIVE) U Benzodiazepines Scrn (NEGATIVE) Urine Cocaine Screen (NEGATIVE) U Cannabinoids Screen (NEGATIVE) Ur Drug Screen Comment Ethyl Alcohol mg/dL Serum Ketones (NEGATIVE) 02/10/25 02/10/25 02/10/25 Range/Units 16:00 15:25 15:24 WBC (4.8-10.8) x10^3/uL RBC (4.20-5.40) 10^6/uL Hgb (12.0-16.0) g/dL Hct (37.0-47.0) % MCV (81.0-99.0) fL MCH (27.0-31.0) pg MCHC (32.0-36.0) g/dL RDW (12.0-15.0) % Plt Count (130-450) 10^3/uL Neut # (Auto) Lymph # (Auto) [place] # (Auto) Eos # (Auto) Baso # (Auto) Absolute Nucleated RBC Total Counted Band Neuts % (Manual) (0 - 10) % Abnorm Lymph % (Manual) % Metamyelocytes % ( - 0) % Nucleated RBC % Neutrophils # (Manual) (1.5-6.6) 10^3/uL Lymphocytes # (Manual) (1.5-3.5) 10^3/uL Monocytes # (Manual) (0.0-1.0) 10^3/uL Eosinophils # (Manual) (0-0.7) 10^3/uL Basophils # (Manual) (0-0.1) 10^3/uL Differential Comment WBC Morphology (NORMAL) Platelet Estimate (NORMAL) Platelet Morphology (NORMAL) RBC Morph Micro Appear 1+ POLYCHROMASIA (NORMAL) Sodium 139 (135-145) mmol/L Potassium 4.1 (3.5-4.5) mmol/L Chloride 104 (101-111) mmol/L Carbon Dioxide 26 (21-32) mmol/L Anion Gap 9.0 (6-13) BUN 29 H (6-20) mg/dL Creatinine 1.0 (0.6-1.3) mg/dL Estimated GFR (MDRD) 56 L (>89) Glucose 359 H (74-104) mg/dL POC Whole Bld Glucose (70-100) mg/dL Lactic Acid 1.9 (0.5-2.2) mmol/L Calcium 9.1 (8.5-10.3) mg/dL Magnesium 1.8 (1.7-2.3) mg/dL Total Bilirubin 0.6 (0.2-1.0) mg/dL AST 25 (10-42) IU/L ALT 23 (10-60) IU/L Alkaline Phosphatase 122 H (42-121) IU/L Total Creatine Kinase 183 (30-223) IU/L Total Protein 6.3 L (6.4-8.9) g/dL Albumin 3.5 (3.2-5.5) g/dL Globulin 2.8 (2.1-4.2) g/dL Albumin/Globulin Ratio 1.3 (1.0-2.2) TSH 10.27 H (0.34-5.60) uIU/mL Free T4 Direct 0.66 (0.58-1.64) ng/dL Urine Color YELLOW Urine Clarity CLOUDY (CLEAR) Urine pH 6.0 (5.0-7.5) PH Ur Specific [place] 1.025 (1.002-1.030) Urine Protein 100 H (NEGATIVE) mg/dL Urine Glucose (UA) >=1000 H (NEGATIVE) mg/dL Urine Ketones 15 H (NEGATIVE) mg/dL Urine Occult Blood LARGE (NEGATIVE) Urine Nitrite POSITIVE H (NEGATIVE) Urine Bilirubin NEGATIVE (NEGATIVE) Urine Urobilinogen 0.2 (NORMAL) (NORMAL) E.U./dL Ur Leukocyte Esterase TRACE H (NEGATIVE) Urine RBC 11-25 H (0-5) /HPF Urine WBC 11-25 H (0-5) /HPF Urine WBC Clumps PRESENT Ur Squamous Epith Cells FEW Squamous (<= Few) Urine Bacteria Many H (None Seen) /HPF Urine Culture Comments INDICATED Urine Opiates Screen POSITIVE H (NEGATIVE) Ur Buprenorphine Scrn NEGATIVE (NEGATIVE) Ur Oxycodone Screen NEGATIVE (NEGATIVE) Urine Methadone Screen NEGATIVE (NEGATIVE) Urine Fentanyl Screen Negative (NEGATIVE) Ur Barbiturates Screen NEGATIVE (NEGATIVE) Ur Tricyclics Screen NEGATIVE (NEGATIVE) Ur Phencyclidine Scrn NEGATIVE (NEGATIVE) Ur Amphetamine Screen NEGATIVE (NEGATIVE) U Methamphetamines Scrn NEGATIVE (NEGATIVE) U Benzodiazepines Scrn NEGATIVE (NEGATIVE) Urine Cocaine Screen NEGATIVE (NEGATIVE) U Cannabinoids Screen NEGATIVE (NEGATIVE) Ur Drug Screen Comment CUTOFF CONC BELOW: Ethyl Alcohol < 10.0 mg/dL Serum Ketones NEGATIVE (NEGATIVE) 02/10/25 02/10/25 02/10/25 Range/Units 15:24 15:24 15:24 WBC (4.8-10.8) x10^3/uL RBC (4.20-5.40) 10^6/uL Hgb (12.0-16.0) g/dL Hct (37.0-47.0) % MCV (81.0-99.0) fL MCH (27.0-31.0) pg MCHC (32.0-36.0) g/dL RDW (12.0-15.0) % Plt Count (130-450) 10^3/uL Neut # (Auto) Lymph # (Auto) [place] # (Auto) Eos # (Auto) Baso # (Auto) Absolute Nucleated RBC Total Counted Band Neuts % (Manual) (0 - 10) % Abnorm Lymph % (Manual) % Metamyelocytes % ( - 0) % Nucleated RBC % Neutrophils # (Manual) (1.5-6.6) 10^3/uL Lymphocytes # (Manual) (1.5-3.5) 10^3/uL Monocytes # (Manual) (0.0-1.0) 10^3/uL Eosinophils # (Manual) (0-0.7) 10^3/uL Basophils # (Manual) (0-0.1) 10^3/uL Differential Comment WBC Morphology PELGER HUET ANOMALY (NORMAL) Platelet Estimate NORMAL (130-450,000) (NORMAL) Platelet Morphology 1+ LARGE PLATELETS (NORMAL) RBC Morph Micro Appear 1+ MICROCYTOSIS 1+ MACROCYTOSIS 2+ ANISOCYTOSIS (NORMAL) Sodium (135-145) mmol/L Potassium (3.5-4.5) mmol/L Chloride (101-111) mmol/L Carbon Dioxide (21-32) mmol/L Anion Gap (6-13) BUN (6-20) mg/dL Creatinine (0.6-1.3) mg/dL Estimated GFR (MDRD) (>89) Glucose (74-104) mg/dL POC Whole Bld Glucose (70-100) mg/dL Lactic Acid (0.5-2.2) mmol/L Calcium (8.5-10.3) mg/dL Magnesium (1.7-2.3) mg/dL Total Bilirubin (0.2-1.0) mg/dL AST (10-42) IU/L ALT (10-60) IU/L Alkaline Phosphatase (42-121) IU/L Total Creatine Kinase (30-223) IU/L Total Protein (6.4-8.9) g/dL Albumin (3.2-5.5) g/dL Globulin (2.1-4.2) g/dL Albumin/Globulin Ratio (1.0-2.2) TSH (0.34-5.60) uIU/mL Free T4 Direct (0.58-1.64) ng/dL Urine Color Urine Clarity (CLEAR) Urine pH (5.0-7.5) PH Ur Specific [place] (1.002-1.030) Urine Protein (NEGATIVE) mg/dL Urine Glucose (UA) (NEGATIVE) mg/dL Urine Ketones (NEGATIVE) mg/dL Urine Occult Blood (NEGATIVE) Urine Nitrite (NEGATIVE) Urine Bilirubin (NEGATIVE) Urine Urobilinogen (NORMAL) E.U./dL Ur Leukocyte Esterase (NEGATIVE) Urine RBC (0-5) /HPF Urine WBC (0-5) /HPF Urine WBC Clumps Ur Squamous Epith Cells (<= Few) Urine Bacteria (None Seen) /HPF Urine Culture Comments Urine Opiates Screen (NEGATIVE) Ur Buprenorphine Scrn (NEGATIVE) Ur Oxycodone Screen (NEGATIVE) Urine Methadone Screen (NEGATIVE) Urine Fentanyl Screen (NEGATIVE) Ur Barbiturates Screen (NEGATIVE) Ur Tricyclics Screen (NEGATIVE) Ur Phencyclidine Scrn (NEGATIVE) Ur Amphetamine Screen (NEGATIVE) U Methamphetamines Scrn (NEGATIVE) U Benzodiazepines Scrn (NEGATIVE) Urine Cocaine Screen (NEGATIVE) U Cannabinoids Screen (NEGATIVE) Ur Drug Screen Comment Ethyl Alcohol mg/dL Serum Ketones (NEGATIVE) 02/10/25 Range/Units 15:24 WBC 14.9 H (4.8-10.8) x10^3/uL RBC 5.18 (4.20-5.40) 10^6/uL Hgb 11.6 L (12.0-16.0) g/dL Hct 38.1 (37.0-47.0) % MCV 73.6 L (81.0-99.0) fL MCH 22.4 L (27.0-31.0) pg MCHC 30.4 L (32.0-36.0) g/dL RDW 23.3 H (12.0-15.0) % Plt Count 151 (130-450) 10^3/uL Neut # (Auto) Not Reportable Lymph # (Auto) Not Reportable [place] # (Auto) Not Reportable Eos # (Auto) Not Reportable Baso # (Auto) Not Reportable Absolute Nucleated RBC Not Reportable Total Counted 100 Band Neuts % (Manual) 8 (0 - 10) % Abnorm Lymph % (Manual) 0 % Metamyelocytes % 1 H ( - 0) % Nucleated RBC % Not Reportable Neutrophils # (Manual) 13.4 H (1.5-6.6) 10^3/uL Lymphocytes # (Manual) 0.6 L (1.5-3.5) 10^3/uL Monocytes # (Manual) 0.7 (0.0-1.0) 10^3/uL Eosinophils # (Manual) 0.0 (0-0.7) 10^3/uL Basophils # (Manual) 0.0 (0-0.1) 10^3/uL Differential Comment MANUAL DIFFERENTIAL WBC Morphology 1+ HYPERSEG NEUT (NORMAL) Platelet Estimate (NORMAL) Platelet Morphology (NORMAL) RBC Morph Micro Appear (NORMAL) Sodium (135-145) mmol/L Potassium (3.5-4.5) mmol/L Chloride (101-111) mmol/L Carbon Dioxide (21-32) mmol/L Anion Gap (6-13) BUN (6-20) mg/dL Creatinine (0.6-1.3) mg/dL Estimated GFR (MDRD) (>89) Glucose (74-104) mg/dL POC Whole Bld Glucose (70-100) mg/dL Lactic Acid (0.5-2.2) mmol/L Calcium (8.5-10.3) mg/dL Magnesium (1.7-2.3) mg/dL Total Bilirubin (0.2-1.0) mg/dL AST (10-42) IU/L ALT (10-60) IU/L Alkaline Phosphatase (42-121) IU/L Total Creatine Kinase (30-223) IU/L Total Protein (6.4-8.9) g/dL Albumin (3.2-5.5) g/dL Globulin (2.1-4.2) g/dL Albumin/Globulin Ratio (1.0-2.2) TSH (0.34-5.60) uIU/mL Free T4 Direct (0.58-1.64) ng/dL Urine Color Urine Clarity (CLEAR) Urine pH (5.0-7.5) PH Ur Specific [place] (1.002-1.030) Urine Protein (NEGATIVE) mg/dL Urine Glucose (UA) (NEGATIVE) mg/dL Urine Ketones (NEGATIVE) mg/dL Urine Occult Blood (NEGATIVE) Urine Nitrite (NEGATIVE) Urine Bilirubin (NEGATIVE) Urine Urobilinogen (NORMAL) E.U./dL Ur Leukocyte Esterase (NEGATIVE) Urine RBC (0-5) /HPF Urine WBC (0-5) /HPF Urine WBC Clumps Ur Squamous Epith Cells (<= Few) Urine Bacteria (None Seen) /HPF Urine Culture Comments Urine Opiates Screen (NEGATIVE) Ur Buprenorphine Scrn (NEGATIVE) Ur Oxycodone Screen (NEGATIVE) Urine Methadone Screen (NEGATIVE) Urine Fentanyl Screen (NEGATIVE) Ur Barbiturates Screen (NEGATIVE) Ur Tricyclics Screen (NEGATIVE) Ur Phencyclidine Scrn (NEGATIVE) Ur Amphetamine Screen (NEGATIVE) U Methamphetamines Scrn (NEGATIVE) U Benzodiazepines Scrn (NEGATIVE) Urine Cocaine Screen (NEGATIVE) U Cannabinoids Screen (NEGATIVE) Ur Drug Screen Comment Ethyl Alcohol mg/dL Serum Ketones (NEGATIVE) Diagnostic Imaging Diagnostic Imaging Results: positive Final report reviewed Diagnostic Imaging Comments: 02-10-2025 CXR, no comparisons. Moderate perihilar airspace opacities with bilateral interstitial opacities and trace bilateral pleural effusions. Findings are concerning for pulmonary edema. 02-10-2025 CT Head w/o contrast Normal, without mass or hemorrhage. 02-10-2025 CTA pulmonary Normal, without PE or acute process 02-10-2025 CT AP Delayed left nephrogram with a 13 mm nonobstructive stone in the left renal pelvis. Mild stranding of the left ureter. Sepsis Event Note (H) Evaluation Current Stage of Sepsis: Sepsis Possible source of Sepsis: positive Genitourinary Confirmed Source and Organism (if known) of Sepsis: 13mm nonobstructive stone in the L renal pelvis, UA positive for infection Sepsis Criteria Sepsis Criteria: Recorded Temperature greater than 38.3C or Less than 36C, Recorded Heart Rate greater than 90 bpm and WBC count greater than 12,000 or less than 4000 Assessment/Plan Problem List (1) Bacteremia due to Gram-negative bacteria: Impression: lood cx bottles positive for GNB. Proteus identified on PCR, consisted with urinary source with positive UA and renal calculus seen on CTAP. Cystoscopy with stent placement scheduled for afternoon today. NPO and hager catheter in place. Patient remains afebrile, leukocytosis downtrending. - Continue Rocephin, plan for at least 7-day treatment of antibiotics. Will need at least 4 days of IV antibiotics, but can de-escalate after the fact if clinically improving. Today is day 2 of antibiotics. (2) Sepsis: Qualifiers: Sepsis acute organ dysfunction status: unspecified Sepsis type: sepsis due to unspecified organism Qualified Code(s): A41.9 - Sepsis, unspecified organism (3) Acute pyelonephritis: (4) Renal calculus, left: Impression: Patient presented septic, with tachycardia, leukocytosis, temperature as high as 100.1. CT abdomen/pelvis shows delayed left nephrogram with a 13 mm nonobstructive stone in the left renal pelvis. Mild stranding of the left ureter. UA positive for infection, awaiting culture results. Suspect Proteus, as seen on blood cultures. - Urology consulted and ureteral stent placement scheduled for afternoon today - Continue Rocephin as above - Continue gentle LR rehydration - Scheduled Tylenol and dilaudid prn for pain (5) Acute metabolic encephalopathy: Impression: Improved. Mental status changes attributed to active infection and hyperglycemia. CT head without acute infarct. - Continue home eszopiclone for sleep (6) Diabetes mellitus: Impression: Hyperglycemia, POC glucose has been >300s during admission, even while npo. Patient states she takes 75units of Lantus at home in addition to meal time insulin. Pharmacy completed medication review and she has not picked up her Lantus in the outpatient.- - Goal sugars <180, hypoglycemia protocol, carb-controlled diet - A1c of 11.8% noted. - Continue Lantus 25 units at night, 7 units with meals of Aspart, sliding scale insulin. Uptitrate as able. Qualifiers: Diabetes mellitus complication status: without complication Diabetes mellitus long wall shear operator insulin use: without long wall shear operator use Diabetes mellitus type: t ype 2 Qualified Code(s): E11.9 - Type 2 diabetes mellitus without complications (7) Diabetic neuropathy: Qualifiers: Diabetes mellitus type: type 2 Diabetes mellitus complication detail: d iabetic mononeuropathy Qualified Code(s): E11.41 - Type 2 diabetes mellitus with diabetic mononeuropathy (8) Chronic, continuous use of opioids: Impression: Patient reports controlled on home Lyrica and scheduled dilaudid. - Continue Lyrica - Multimodal pain control as above (9) Hypokalemia: Impression: Mild 3.4. Likely dilutional. Mg is 1.8. - Monitor, BMP in am. - Will replete as needed. (10) Thrombocytopenia: Impression: Mild Plt 151-> 129, without evidence of bleeding on exam. No skin changes. Not on any NSAIDs or antiplatelets. Suspect dilutional. - Monitor, CBC in am. (11) Subclinical hypothyroidism: Impression: TSH elevated, T4 normal suggestive of subclinical hypothyroidism. Her mental status is now back at baseline. No treatment needed at this time. - Recommend follow-up in outpatient setting. (12) COPD (chronic obstructive pulmonary disease): Impression: Stable. Not in active exacerbation. Continue Duonebs as needed. Qualifiers: COPD type: unspecified COPD Qualified Code(s): J44.9 - Chronic obstructive pulmonary disease, unspecified (13) Aortic valve stenosis: Qualifiers: Cardiac valve disease etiology: etiology unspecified Qualified Code(s): I35.0 - Nonrheumatic aortic (valve) stenosis (14) Pacemaker: Impression: Stable. Suspect complex heart history. Patient reports failing valve replacement leading to the recent placement of her pacemaker (in October). She is currently taking amiodarone. Sees cardiology, Dr. Corona in [place]? She lives in [place]. Will attempt to obtain outside records. - Continue home dose amiodarone 200mg BID - Continue home dose torsemide 40mg (exchanged for Bumex) tomorrow
--- NOTE | 2025-02-11 08:54 | CONSULTATION NOTE ---
History of Present Illness History of Present Illness HPI Comment/Other: Manasa is a 65-year-old morbidly obese type II diabetic with history of kidney stones who presented to the hospital yesterday after being found down. She had altered mental status. Her blood sugars are out of control. CT scan showed a left 13 mm UPJ stone with delayed nephrogram. She denies history of prior urologic involvement but she thinks she has had stones before. This morning she is alert and oriented x 4 She has remained afebrile and hemodynamically stable though hypertensive on this visit. Her white count improved yesterday from 14.9-11.4. Her blood cultures have been returned positive for gram negative bacteria. PCR consistent with Proteus. She is on ceftriaxone [facility] Active Problems All Active Problems (Updated 02/11/25 @ 08:34 by Justine Baker) Thrombocytopenia (Acute) Bacteremia due to Gram-negative bacteria (Acute) Hypokalemia (Acute) Acute metabolic encephalopathy (Acute) Sepsis (Acute) COPD (chronic obstructive pulmonary disease) (Chronic) Aortic valve stenosis (Acute) Pacemaker (Acute) Diabetes mellitus (Chronic) Renal calculus, left (Acute) Acute pyelonephritis (Acute) Social History Social History (Updated 02/10/25 @ 20:38 by Jacki Tabares DNP) Smoking Status: Unknown if ever smoked Second hand tobacco smoke exposure: No Do you dip or chew tobacco?: No Do you vape?: No Level: Independent Home Mobility Equipment: Cane Do you feel safe in your home environment?: Yes History of physical, verbal, emotional, or financial abuse?: No Meds/Allgy Allergies Allergies Allergy/AdvReac Type Severity Reaction Status Date / Time No Known Drug Allergies Allergy Verified 02/10/25 14:45 Results Lab Results Lab results reviewed: Yes 02/11/25 04:52 02/11/25 04:52 Other Lab Results: Lab Results x24hrs 02/11/25 02/11/25 02/10/25 Range/Units 08:10 04:52 20:59 WBC 11.4 H (4.8-10.8) x10^3/uL RBC 4.70 (4.20-5.40) 10^6/uL Hgb 10.1 L (12.0-16.0) g/dL Hct 34.7 L (37.0-47.0) % MCV 73.8 L (81.0-99.0) fL MCH 21.5 L (27.0-31.0) pg MCHC 29.1 L (32.0-36.0) g/dL RDW 23.0 H (12.0-15.0) % Plt Count 129 L (130-450) 10^3/uL Neut # (Auto) Lymph # (Auto) Bent # (Auto) Eos # (Auto) Baso # (Auto) Absolute Nucleated RBC Total Counted Band Neuts % (Manual) (0 - 10) % Abnorm Lymph % (Manual) % Metamyelocytes % ( - 0) % Nucleated RBC % Neutrophils # (Manual) (1.5-6.6) 10^3/uL Lymphocytes # (Manual) (1.5-3.5) 10^3/uL Monocytes # (Manual) (0.0-1.0) 10^3/uL Eosinophils # (Manual) (0-0.7) 10^3/uL Basophils # (Manual) (0-0.1) 10^3/uL Differential Comment WBC Morphology (NORMAL) Platelet Estimate (NORMAL) Platelet Morphology (NORMAL) RBC Morph Micro Appear (NORMAL) Sodium 136 (135-145) mmol/L Potassium 3.4 L (3.5-4.5) mmol/L Chloride 104 (101-111) mmol/L Carbon Dioxide 23 (21-32) mmol/L Anion Gap 9.0 (6-13) BUN 29 H (6-20) mg/dL Creatinine 1.0 (0.6-1.3) mg/dL Estimated GFR (MDRD) 56 L (>89) Glucose 375 H (74-104) mg/dL POC Whole Bld Glucose 327 358 (70-100) mg/dL Lactic Acid (0.5-2.2) mmol/L Calcium 8.3 L (8.5-10.3) mg/dL Magnesium 1.8 (1.7-2.3) mg/dL Total Bilirubin 0.5 (0.2-1.0) mg/dL AST 19 (10-42) IU/L ALT 19 (10-60) IU/L Alkaline Phosphatase 109 (42-121) IU/L Total Creatine Kinase (30-223) IU/L Total Protein 5.3 L (6.4-8.9) g/dL Albumin 3.0 L (3.2-5.5) g/dL Globulin 2.3 (2.1-4.2) g/dL Albumin/Globulin Ratio 1.3 (1.0-2.2) TSH (0.34-5.60) uIU/mL Free T4 Direct (0.58-1.64) ng/dL Urine Color Urine Clarity (CLEAR) Urine pH (5.0-7.5) PH Ur Specific Waldron (1.002-1.030) Urine Protein (NEGATIVE) mg/dL Urine Glucose (UA) (NEGATIVE) mg/dL Urine Ketones (NEGATIVE) mg/dL Urine Occult Blood (NEGATIVE) Urine Nitrite (NEGATIVE) Urine Bilirubin (NEGATIVE) Urine Urobilinogen (NORMAL) E.U./dL Ur Leukocyte Esterase (NEGATIVE) Urine RBC (0-5) /HPF Urine WBC (0-5) /HPF Urine WBC Clumps Ur Squamous Epith Cells (<= Few) Urine Bacteria (None Seen) /HPF Urine Culture Comments Urine Opiates Screen (NEGATIVE) Ur Buprenorphine Scrn (NEGATIVE) Ur Oxycodone Screen (NEGATIVE) Urine Methadone Screen (NEGATIVE) Urine Fentanyl Screen (NEGATIVE) Ur Barbiturates Screen (NEGATIVE) Ur Tricyclics Screen (NEGATIVE) Ur Phencyclidine Scrn (NEGATIVE) Ur Amphetamine Screen (NEGATIVE) U Methamphetamines Scrn (NEGATIVE) U Benzodiazepines Scrn (NEGATIVE) Urine Cocaine Screen (NEGATIVE) U Cannabinoids Screen (NEGATIVE) Ur Drug Screen Comment Ethyl Alcohol mg/dL Serum Ketones (NEGATIVE) 02/10/25 02/10/25 02/10/25 Range/Units 16:00 15:25 15:24 WBC (4.8-10.8) x10^3/uL RBC (4.20-5.40) 10^6/uL Hgb (12.0-16.0) g/dL Hct (37.0-47.0) % MCV (81.0-99.0) fL MCH (27.0-31.0) pg MCHC (32.0-36.0) g/dL RDW (12.0-15.0) % Plt Count (130-450) 10^3/uL Neut # (Auto) Lymph # (Auto) Bent # (Auto) Eos # (Auto) Baso # (Auto) Absolute Nucleated RBC Total Counted Band Neuts % (Manual) (0 - 10) % Abnorm Lymph % (Manual) % Metamyelocytes % ( - 0) % Nucleated RBC % Neutrophils # (Manual) (1.5-6.6) 10^3/uL Lymphocytes # (Manual) (1.5-3.5) 10^3/uL Monocytes # (Manual) (0.0-1.0) 10^3/uL Eosinophils # (Manual) (0-0.7) 10^3/uL Basophils # (Manual) (0-0.1) 10^3/uL Differential Comment WBC Morphology (NORMAL) Platelet Estimate (NORMAL) Platelet Morphology (NORMAL) RBC Morph Micro Appear 1+ POLYCHROMASIA (NORMAL) Sodium 139 (135-145) mmol/L Potassium 4.1 (3.5-4.5) mmol/L Chloride 104 (101-111) mmol/L Carbon Dioxide 26 (21-32) mmol/L Anion Gap 9.0 (6-13) BUN 29 H (6-20) mg/dL Creatinine 1.0 (0.6-1.3) mg/dL Estimated GFR (MDRD) 56 L (>89) Glucose 359 H (74-104) mg/dL POC Whole Bld Glucose (70-100) mg/dL Lactic Acid 1.9 (0.5-2.2) mmol/L Calcium 9.1 (8.5-10.3) mg/dL Magnesium 1.8 (1.7-2.3) mg/dL Total Bilirubin 0.6 (0.2-1.0) mg/dL AST 25 (10-42) IU/L ALT 23 (10-60) IU/L Alkaline Phosphatase 122 H (42-121) IU/L Total Creatine Kinase 183 (30-223) IU/L Total Protein 6.3 L (6.4-8.9) g/dL Albumin 3.5 (3.2-5.5) g/dL Globulin 2.8 (2.1-4.2) g/dL Albumin/Globulin Ratio 1.3 (1.0-2.2) TSH 10.27 H (0.34-5.60) uIU/mL Free T4 Direct 0.66 (0.58-1.64) ng/dL Urine Color YELLOW Urine Clarity CLOUDY (CLEAR) Urine pH 6.0 (5.0-7.5) PH Ur Specific Waldron 1.025 (1.002-1.030) Urine Protein 100 H (NEGATIVE) mg/dL Urine Glucose (UA) >=1000 H (NEGATIVE) mg/dL Urine Ketones 15 H (NEGATIVE) mg/dL Urine Occult Blood LARGE (NEGATIVE) Urine Nitrite POSITIVE H (NEGATIVE) Urine Bilirubin NEGATIVE (NEGATIVE) Urine Urobilinogen 0.2 (NORMAL) (NORMAL) E.U./dL Ur Leukocyte Esterase TRACE H (NEGATIVE) Urine RBC 11-25 H (0-5) /HPF Urine WBC 11-25 H (0-5) /HPF Urine WBC Clumps PRESENT Ur Squamous Epith Cells FEW Squamous (<= Few) Urine Bacteria Many H (None Seen) /HPF Urine Culture Comments INDICATED Urine Opiates Screen POSITIVE H (NEGATIVE) Ur Buprenorphine Scrn NEGATIVE (NEGATIVE) Ur Oxycodone Screen NEGATIVE (NEGATIVE) Urine Methadone Screen NEGATIVE (NEGATIVE) Urine Fentanyl Screen Negative (NEGATIVE) Ur Barbiturates Screen NEGATIVE (NEGATIVE) Ur Tricyclics Screen NEGATIVE (NEGATIVE) Ur Phencyclidine Scrn NEGATIVE (NEGATIVE) Ur Amphetamine Screen NEGATIVE (NEGATIVE) U Methamphetamines Scrn NEGATIVE (NEGATIVE) U Benzodiazepines Scrn NEGATIVE (NEGATIVE) Urine Cocaine Screen NEGATIVE (NEGATIVE) U Cannabinoids Screen NEGATIVE (NEGATIVE) Ur Drug Screen Comment CUTOFF CONC BELOW: Ethyl Alcohol < 10.0 mg/dL Serum Ketones NEGATIVE (NEGATIVE) 02/10/25 02/10/25 02/10/25 Range/Units 15:24 15:24 15:24 WBC (4.8-10.8) x10^3/uL RBC (4.20-5.40) 10^6/uL Hgb (12.0-16.0) g/dL Hct (37.0-47.0) % MCV (81.0-99.0) fL MCH (27.0-31.0) pg MCHC (32.0-36.0) g/dL RDW (12.0-15.0) % Plt Count (130-450) 10^3/uL Neut # (Auto) Lymph # (Auto) Bent # (Auto) Eos # (Auto) Baso # (Auto) Absolute Nucleated RBC Total Counted Band Neuts % (Manual) (0 - 10) % Abnorm Lymph % (Manual) % Metamyelocytes % ( - 0) % Nucleated RBC % Neutrophils # (Manual) (1.5-6.6) 10^3/uL Lymphocytes # (Manual) (1.5-3.5) 10^3/uL Monocytes # (Manual) (0.0-1.0) 10^3/uL Eosinophils # (Manual) (0-0.7) 10^3/uL Basophils # (Manual) (0-0.1) 10^3/uL Differential Comment WBC Morphology PELGER HUET ANOMALY (NORMAL) Platelet Estimate NORMAL (130-450,000) (NORMAL) Platelet Morphology 1+ LARGE PLATELETS (NORMAL) RBC Morph Micro Appear 1+ MICROCYTOSIS 1+ MACROCYTOSIS 2+ ANISOCYTOSIS (NORMAL) Sodium (135-145) mmol/L Potassium (3.5-4.5) mmol/L Chloride (101-111) mmol/L Carbon Dioxide (21-32) mmol/L Anion Gap (6-13) BUN (6-20) mg/dL Creatinine (0.6-1.3) mg/dL Estimated GFR (MDRD) (>89) Glucose (74-104) mg/dL POC Whole Bld Glucose (70-100) mg/dL Lactic Acid (0.5-2.2) mmol/L Calcium (8.5-10.3) mg/dL Magnesium (1.7-2.3) mg/dL Total Bilirubin (0.2-1.0) mg/dL AST (10-42) IU/L ALT (10-60) IU/L Alkaline Phosphatase (42-121) IU/L Total Creatine Kinase (30-223) IU/L Total Protein (6.4-8.9) g/dL Albumin (3.2-5.5) g/dL Globulin (2.1-4.2) g/dL Albumin/Globulin Ratio (1.0-2.2) TSH (0.34-5.60) uIU/mL Free T4 Direct (0.58-1.64) ng/dL Urine Color Urine Clarity (CLEAR) Urine pH (5.0-7.5) PH Ur Specific Waldron (1.002-1.030) Urine Protein (NEGATIVE) mg/dL Urine Glucose (UA) (NEGATIVE) mg/dL Urine Ketones (NEGATIVE) mg/dL Urine Occult Blood (NEGATIVE) Urine Nitrite (NEGATIVE) Urine Bilirubin (NEGATIVE) Urine Urobilinogen (NORMAL) E.U./dL Ur Leukocyte Esterase (NEGATIVE) Urine RBC (0-5) /HPF Urine WBC (0-5) /HPF Urine WBC Clumps Ur Squamous Epith Cells (<= Few) Urine Bacteria (None Seen) /HPF Urine Culture Comments Urine Opiates Screen (NEGATIVE) Ur Buprenorphine Scrn (NEGATIVE) Ur Oxycodone Screen (NEGATIVE) Urine Methadone Screen (NEGATIVE) Urine Fentanyl Screen (NEGATIVE) Ur Barbiturates Screen (NEGATIVE) Ur Tricyclics Screen (NEGATIVE) Ur Phencyclidine Scrn (NEGATIVE) Ur Amphetamine Screen (NEGATIVE) U Methamphetamines Scrn (NEGATIVE) U Benzodiazepines Scrn (NEGATIVE) Urine Cocaine Screen (NEGATIVE) U Cannabinoids Screen (NEGATIVE) Ur Drug Screen Comment Ethyl Alcohol mg/dL Serum Ketones (NEGATIVE) 02/10/25 Range/Units 15:24 WBC 14.9 H (4.8-10.8) x10^3/uL RBC 5.18 (4.20-5.40) 10^6/uL Hgb 11.6 L (12.0-16.0) g/dL Hct 38.1 (37.0-47.0) % MCV 73.6 L (81.0-99.0) fL MCH 22.4 L (27.0-31.0) pg MCHC 30.4 L (32.0-36.0) g/dL RDW 23.3 H (12.0-15.0) % Plt Count 151 (130-450) 10^3/uL Neut # (Auto) Not Reportable Lymph # (Auto) Not Reportable Bent # (Auto) Not Reportable Eos # (Auto) Not Reportable Baso # (Auto) Not Reportable Absolute Nucleated RBC Not Reportable Total Counted 100 Band Neuts % (Manual) 8 (0 - 10) % Abnorm Lymph % (Manual) 0 % Metamyelocytes % 1 H ( - 0) % Nucleated RBC % Not Reportable Neutrophils # (Manual) 13.4 H (1.5-6.6) 10^3/uL Lymphocytes # (Manual) 0.6 L (1.5-3.5) 10^3/uL Monocytes # (Manual) 0.7 (0.0-1.0) 10^3/uL Eosinophils # (Manual) 0.0 (0-0.7) 10^3/uL Basophils # (Manual) 0.0 (0-0.1) 10^3/uL Differential Comment MANUAL DIFFERENTIAL WBC Morphology 1+ HYPERSEG NEUT (NORMAL) Platelet Estimate (NORMAL) Platelet Morphology (NORMAL) RBC Morph Micro Appear (NORMAL) Sodium (135-145) mmol/L Potassium (3.5-4.5) mmol/L Chloride (101-111) mmol/L Carbon Dioxide (21-32) mmol/L Anion Gap (6-13) BUN (6-20) mg/dL Creatinine (0.6-1.3) mg/dL Estimated GFR (MDRD) (>89) Glucose (74-104) mg/dL POC Whole Bld Glucose (70-100) mg/dL Lactic Acid (0.5-2.2) mmol/L Calcium (8.5-10.3) mg/dL Magnesium (1.7-2.3) mg/dL Total Bilirubin (0.2-1.0) mg/dL AST (10-42) IU/L ALT (10-60) IU/L Alkaline Phosphatase (42-121) IU/L Total Creatine Kinase (30-223) IU/L Total Protein (6.4-8.9) g/dL Albumin (3.2-5.5) g/dL Globulin (2.1-4.2) g/dL Albumin/Globulin Ratio (1.0-2.2) TSH (0.34-5.60) uIU/mL Free T4 Direct (0.58-1.64) ng/dL Urine Color Urine Clarity (CLEAR) Urine pH (5.0-7.5) PH Ur Specific Waldron (1.002-1.030) Urine Protein (NEGATIVE) mg/dL Urine Glucose (UA) (NEGATIVE) mg/dL Urine Ketones (NEGATIVE) mg/dL Urine Occult Blood (NEGATIVE) Urine Nitrite (NEGATIVE) Urine Bilirubin (NEGATIVE) Urine Urobilinogen (NORMAL) E.U./dL Ur Leukocyte Esterase (NEGATIVE) Urine RBC (0-5) /HPF Urine WBC (0-5) /HPF Urine WBC Clumps Ur Squamous Epith Cells (<= Few) Urine Bacteria (None Seen) /HPF Urine Culture Comments Urine Opiates Screen (NEGATIVE) Ur Buprenorphine Scrn (NEGATIVE) Ur Oxycodone Screen (NEGATIVE) Urine Methadone Screen (NEGATIVE) Urine Fentanyl Screen (NEGATIVE) Ur Barbiturates Screen (NEGATIVE) Ur Tricyclics Screen (NEGATIVE) Ur Phencyclidine Scrn (NEGATIVE) Ur Amphetamine Screen (NEGATIVE) U Methamphetamines Scrn (NEGATIVE) U Benzodiazepines Scrn (NEGATIVE) Urine Cocaine Screen (NEGATIVE) U Cannabinoids Screen (NEGATIVE) Ur Drug Screen Comment Ethyl Alcohol mg/dL Serum Ketones (NEGATIVE) Diagnostic Imaging Results Diagnostic Imaging Results: positive Read independently Exam Exam Vital Signs: Vital Signs x48h Temp Pulse Resp BP Pulse Ox 02/11/25 08:30 36.5 C 85 20 172/80 H 93 02/11/25 04:55 36.4 C L 88 20 149/67 H 93 NAD RRR CTA b/l abdomen softly distended Conclusion/Plan Problem List (1) Bacteremia due to Gram-negative bacteria: (2) Sepsis: Qualifiers: Sepsis acute organ dysfunction status: unspecified Sepsis type: sepsis due to unspecified organism Qualified Code(s): A41.9 - Sepsis, unspecified organism (3) Acute pyelonephritis: (4) Renal calculus, left: Plan: Left 13 mm UPJ stone with likely obstruction and UTI and bacteremia. I recommend cystoscopy, left ureteral stent placement. The risk, benefits, alternatives were discussed with the patient. Patient states understanding and consents to the above plan. She has been marked and consented. She is A and O x 4 today and I have no concern about her capacity (5) Acute metabolic encephalopathy: (6) Diabetes mellitus: Qualifiers: Diabetes mellitus complication status: without complication Diabetes mellitus jail insulin use: without biomass technician use Diabetes mellitus type: t ype 2 Qualified Code(s): E11.9 - Type 2 diabetes mellitus without complications (7) Hypokalemia: (8) Thrombocytopenia: (9) Aortic valve stenosis: Qualifiers: Cardiac valve disease etiology: etiology unspecified Qualified Code(s): I35.0 - Nonrheumatic aortic (valve) stenosis (10) Pacemaker: (11) COPD (chronic obstructive pulmonary disease): Qualifiers: COPD type: unspecified COPD Qualified Code(s): J44.9 - Chronic obstructive pulmonary disease, unspecified Lab Results Lab results reviewed: Yes 02/11/25 04:52 02/11/25 04:52 Diagnostic Imaging Results Diagnostic Imaging Results: positive Read independently
[2025-02-11 10:11] LABS: HCG UR QUAL NEGATIVE
[2025-02-11] MEDS: HYDROcod/ACETAM 5/325 MG TABLET PO PRN (10:59)
[2025-02-11] MEDS: PREGABALIN 100 MG CAPSULE PO SCH (11:00)
[2025-02-11] MEDS: PREGABALIN 25 MG CAPSULE PO SCH (11:03)
[2025-02-11 11:43] LABS: ESTIMATED AVERAGE GLUCOSE 292 mg/dL (70-100); HEMOGLOBIN A1c% 11.8 % (4.27-6.07)
--- NOTE | 2025-02-11 12:03 | PHARMACY PROGRESS NOTE ---
Best Possible Medication History Admit Date and Time: 02/11/25 0724 Home Medications Medication Instructions Recorded Confirmed Type acetaminophen 500 mg capsule 500 mg PO Q6H PRN pain 02/11/25 History amiodarone 200 mg tablet 200 mg PO BID 02/11/2502/11 History clotrimazole-betamethasone 1 1 applic topical BID 01/1702/11/25 History %-0.05 % topical cream duloxetine 30 mg capsule,delayed 30 mg PO QPM 02/11/25 02/11/25 History release duloxetine 60 mg capsule,delayed 60 mg PO QPM 02/11/25 02/11/25 History release empagliflozin 25 mg tablet 25 mg PO DAILYWM 02/11/25 1 History (Jardiance) eszopiclone 2 mg tablet 2 mg PO QPM PRN sleep 02/11/25 History hydrocodone 5 mg-acetaminophen 325 1 tab PO Q6H PRN pa in 02/11/25 02/11/25 History mg tablet insulin lispro 100 unit/mL 2 - 10 sliding scale dose s ubcut 02/11/25 02/11/25 History subcutaneous pen (Humalog KwikPen QID (U-100) Insulin) letrozole 2.5 mg tablet 2.5 mg PO QPM 02/11/2502/11 History lisinopril 40 mg tablet 40 mg PO QPM 02/11/25 History pregabalin 150 mg capsule 150 mg PO QID 02/11/2502/11 History semaglutide 0.25 mg or 0.5 mg (2 0.5 mg subcut OAW 02/11/25 History mg/3 mL) subcutaneous pen injector (Ozempic) topiramate 25 mg tablet 25 mg PO BID 02/11/25 History torsemide 20 mg tablet 40 mg PO DAILY 02/11/2501/17 History Processed by: Pharmacy (Medication reconciliation completed by Storage Receipt [employer]er[employer]) Medications reviewed in ED?: No Patient Interview: Pt unable to participate (patient confused at time of interview) Secondary Source(s): Pharmacy records (faxed fill history from [facility]), Insurance records and Previous admit records (From May 2024, no longer accurate on many of the doses) [facility] Statement: As the person ultimately responsible for medication therapy, providers are able to order a medication from an existing home medication list in [facility] via the "Reconcile Routine" prior to Confirmation of that medication by work station support specialist. Such practice is discouraged except when the physician, in their clinical judgment, deems that a medical need exists for a medication without regard to previous use.
[2025-02-11] MEDS ORDERED: fentaNYL 100 MCG/2 ML VIAL ONE ×2 (12:40→15:57)
[2025-02-11] MEDS ORDERED: MIDAZOLAM 2 MG/2 ML VIAL ONE (12:40)
[2025-02-11] MEDS: INSULIN LISPRO 300 UNIT/3 ML PEN SUBQ SCH ×3 (13:14→22:11)
--- NOTE | 2025-02-11 13:36 | ANESTHESIA PROCEDURE NOTE ---
Pre-Anesthesia VS, & Labs Diagnosis Surgical Diagnosis:: L renal stone Procedure Procedure: L cystoscopy, ureteral stent placement Vitals Vital Signs: Temp Pulse Resp BP Pulse Ox 36.5 C 85 20 172/80 H 93 02/11/25 08:30 02/11/25 08:30 02/11/25 08:30 02/11/25 08:30 02/11/25 08:30 NPO NPO: >8 hours Is Patient ?: No Lab Results Current Lab Results: Laboratory Tests 02/11/25 13:05: POC Whole Bld Glucose 305 02/11/25 10:32: POC Whole Bld Glucose 308 02/11/25 08:10: POC Whole Bld Glucose 327 02/11/25 05:00: Estimat Average Glucose 292 H, Hemoglobin A1c % 11.8 H 02/11/25 04:52: WBC 11.4 H, RBC 4.70, Hgb 10.1 L, Hct 34.7 L, MCV 73.8 L, MCH 21.5 L, MCHC 29.1 L, RDW 23.0 H, Plt Count 129 L, Sodium 136, Potassium 3.4 L, Chloride 104, Carbon Dioxide 23, Anion Gap 9.0, BUN 29 H, Creatinine 1.0, E stimated GFR (MDRD) 56 L, Glucose 375 H, Calcium 8.3 L, Magnesium 1.8, Total Bilirubin 0.5, AST 19, ALT 19, Alkaline Phosphatase 109, Total Protein 5.3 L, A lbumin 3.0 L, Globulin 2.3, Albumin/Globulin Ratio 1.3 02/10/25 20:59: POC Whole Bld Glucose 358 02/10/25 16:00: Urine Opiates Screen POSITIVE H, Ur Buprenorphine Scrn NEGATIVE, Ur Oxycodone Screen NEGATIVE, Urine Methadone Screen NEGATIVE, Urine Fentanyl Screen Negative, Ur Barbiturates Screen NEGATIVE, Ur Tricyclics Screen NEGATIVE, Ur Phencyclidine Scrn NEGATIVE, Ur Amphetamine Screen NEGATIVE, U Methamphetamines Scrn NEGATIVE, U Benzodiazepines Scrn NEGATIVE, Urine Cocaine Screen NEGATIVE, U Cannabinoids Screen NEGATIVE, Ur Drug Screen Comment CUTOFF CONC BELOW: 02/10/25 15:25: TSH 10.27 H, Free T4 Direct 0.66, Serum Ketones NEGATIVE 02/10/25 15:24: RBC Morph Micro Appear 1+ POLYCHROMASIA, Sodium 139, Potassium 4.1, Chloride 104, Carbon Dioxide 26, Anion Gap 9.0, BUN 29 H, Creatinine 1.0, E stimated GFR (MDRD) 56 L, Glucose 359 H, Lactic Acid 1.9, Calcium 9.1, Magnesium 1.8, Total Bilirubin 0.6, AST 25, ALT 23, Alkaline Phosphatase 122 H, Total Creatine Kinase 183, Total Protein 6.3 L, Albumin 3.5, Globulin 2.8, Albumin/Globulin Ratio 1.3, Ethyl Alcohol < 10.0 02/10/25 15:24: RBC Morph Micro Appear 1+ MICROCYTOSIS 02/10/25 15:24: RBC Morph Micro Appear 1+ MACROCYTOSIS 02/10/25 15:24: WBC Morphology PELGER HUET ANOMALY, Platelet Estimate NORMAL (130-450,000), Platelet Morphology 1+ LARGE PLATELETS, RBC Morph Micro Appear 2+ ANISOCYTOSIS 02/10/25 15:24: WBC 14.9 H, RBC 5.18, Hgb 11.6 L, Hct 38.1, MCV 73.6 L, MCH 22.4 L, MCHC 30.4 L, RDW 23.3 H, Plt Count 151, Neut # (Auto) Not Reportable, Lymph # (Auto) Not Reportable, Dare # (Auto) Not Reportable, Eos # (Auto) Not Reportable, Baso # (Auto) Not Reportable, Absolute Nucleated RBC Not Reportable, Total Counted 100, Band Neuts % (Manual) 8, Abnorm Lymph % (Manual) 0, M etamyelocytes % 1 H, Nucleated RBC % Not Reportable, Neutrophils # (Manual) 13.4 H, Lymphocytes # (Manual) 0.6 L, Monocytes # (Manual) 0.7, Eosinophils # (Manual) 0.0, Basophils # (Manual) 0.0, Differential Comment MANUAL DIFFERENTIAL, WBC Morphology 1+ HYPERSEG NEUT Lab results reviewed: Yes 02/11/25 04:52 02/11/25 04:52 Meds/Allgy Home Medications Ambulatory Orders Medication Instructions Recorded Confirmed acetaminophen 500 mg capsule 500 mg PO Q6H PRN pain 02/11/25 amiodarone 200 mg tablet 200 mg PO BID 02/11/2502/11 clotrimazole-betamethasone 1 1 applic topical BID 01/1702/11/25 %-0.05 % topical cream duloxetine 30 mg capsule,delayed 30 mg PO QPM 02/11/25 02/11/25 release duloxetine 60 mg capsule,delayed 60 mg PO QPM 02/11/25 02/11/25 release empagliflozin 25 mg tablet 25 mg PO DAILYWM 02/11/25 1 (Jardiance) eszopiclone 2 mg tablet 2 mg PO QPM PRN sleep 02/11/25 hydrocodone 5 mg-acetaminophen 325 1 tab PO Q6H PRN pa in 02/11/25 02/11/25 mg tablet insulin lispro 100 unit/mL 2 - 10 sliding scale dose s ubcut 02/11/25 02/11/25 subcutaneous pen (Humalog KwikPen QID (U-100) Insulin) letrozole 2.5 mg tablet 2.5 mg PO QPM 02/11/2502/11 lisinopril 40 mg tablet 40 mg PO QPM 02/11/25 pregabalin 150 mg capsule 150 mg PO QID 02/11/2502/11 semaglutide 0.25 mg or 0.5 mg (2 0.5 mg subcut OAW 02/11/25 mg/3 mL) subcutaneous pen injector (E-Buy) topiramate 25 mg tablet 25 mg PO BID 02/11/25 torsemide 20 mg tablet 40 mg PO DAILY 02/11/2501/17 Allergies Allergies Allergy/AdvReac Type Severity Reaction Status Date / Time No Known Drug Allergies Allergy Verified 02/10/25 14:45 PFSH Active Problems All Active Problems (Updated 02/11/25 @ 11:37 by Justine Baker) Chronic, continuous use of opioids (Acute) Diabetic neuropathy (Chronic) Subclinical hypothyroidism (Acute) Thrombocytopenia (Acute) Bacteremia due to Gram-negative bacteria (Acute) Hypokalemia (Acute) Acute metabolic encephalopathy (Acute) Sepsis (Acute) COPD (chronic obstructive pulmonary disease) (Chronic) Aortic valve stenosis (Acute) Pacemaker (Acute) Diabetes mellitus (Chronic) Renal calculus, left (Acute) Acute pyelonephritis (Acute) Surgical History Surgical History (Updated 02/11/25 @ 13:33 by Santiago Mejía CRNA) History of permanent cardiac pacemaker placement S/P TAVR (transcatheter aortic valve replacement) Social History Social History (Updated 02/10/25 @ 20:38 by Jacki Tabares DNP) Smoking Status: Unknown if ever smoked Second hand tobacco smoke exposure: No Do you dip or chew tobacco?: No Do you vape?: No Level: Independent Home Mobility Equipment: Cane Do you feel safe in your home environment?: Yes History of physical, verbal, emotional, or financial abuse?: No Anesthesia Exam (Expanded) Exam General: Alert, Oriented x3, Cooperative and Mild distress Dental: Dentures full Upper and Dentures full Lower Mouth Openin Fingerbreadth Neck Mobility: Normal Mallampati classification: II Thyromental Distance: 4-6 cm Respiratory: Lungs clear and Normal breath sounds Cardiovascular: Regular rate Neurological: Normal speech Mental/Cognitive Status: Alert/Oriented X3 and Normal for patient Cognitive Status: Within normal limits Exam Exam Vital Signs: Vital Signs x48h Temp Pulse Resp BP Pulse Ox 02/11/25 08:30 36.5 C 85 20 172/80 H 93 Plan Problem List (1) Bacteremia due to Gram-negative bacteria: (2) Sepsis: Qualifiers: Sepsis type: sepsis due to unspecified organism Sepsis acute organ dysfunction status: unspecified Qualified Code(s): A41.9 - Sepsis, unspecified organism (3) Acute pyelonephritis: (4) Renal calculus, left: Plan: Left 13 mm UPJ stone with likely obstruction and UTI and bacteremia. I recommend cystoscopy, left ureteral stent placement. The risk, benefits, alternatives were discussed with the patient. Patient states understanding and consents to the above plan. She has been marked and consented. 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 Diabetes mellitus complication status: without complication Qualified Code(s): E11.9 - Type 2 diabetes mellitus without complications (7) Diabetic neuropathy: (8) Chronic, continuous use of opioids: (9) Hypokalemia: (10) Thrombocytopenia: (11) Subclinical hypothyroidism: (12) COPD (chronic obstructive pulmonary disease): Qualifiers: COPD type: unspecified COPD Qualified Code(s): J44.9 - Chronic obstructive pulmonary disease, unspecified (13) Aortic valve stenosis: Qualifiers: Cardiac valve disease etiology: etiology unspecified Qualified Code(s): I35.0 - Nonrheumatic aortic (valve) stenosis (14) Pacemaker: Plan Anesthesia Type: General Consent for Procedure(s) Verified and Reviewed: Yes Code Status: Attempt Resuscitation ASA Classification ASA classification: 3-Severe systemic disease Is this case an emergency?: Yes
[2025-02-11] MEDS ORDERED: LIDOCAINE 2% URO-JET 5 ML SYRINGE UR ONE ×2 (13:45→14:03)
[2025-02-11] MEDS ORDERED: LIDOCAINE-PF 2% 10 ML AMP SUBQ ONE (14:35)
[2025-02-11] MEDS ORDERED: PROPOFOL 200 MG/20 ML VIAL IVP ONE (14:35)
[2025-02-11] MEDS ORDERED: ONDANSETRON 4 MG/2 ML VIAL ONE (14:35)
[2025-02-11] MEDS ORDERED: PHENYLEPHRINE HCL 0.5 MG/5 ML AMPULE ONE (14:42)
[2025-02-11] MEDS ORDERED: LACTATED RINGERS 1,000 ML IV PRN (14:52)
[2025-02-11] MEDS: LACTATED RINGERS 1,000 ML IV SCH (15:20)
[2025-02-11] MEDS ORDERED: NALOXONE 0.4 MG/ML VIAL IVP PRN (15:36)
[2025-02-11] MEDS ORDERED: ONDANSETRON 4 MG/2 ML VIAL IVP PRN (15:36)
[2025-02-11] MEDS ORDERED: ATROPINE ABBOJECT 1 MG/10 ML SYRINGE IVP PRN (15:36)
[2025-02-11] MEDS ORDERED: ePHEDrine 50 MG/ML VIAL IVP PRN (15:36)
[2025-02-11] MEDS ORDERED: HYDROmorphone 0.5 MG/0.5 ML SYRINGE IVP PRN (15:36)
[2025-02-11] MEDS ORDERED: METOCLOPRAMIDE 10 MG/2 ML VIAL IVP PRN (15:36)
[2025-02-11] MEDS ORDERED: MORPHINE 2 MG/ML CARPUJECT IVP PRN (15:36)
[2025-02-11] MEDS: fentaNYL 100 MCG/2 ML VIAL IVP PRN (15:58)
--- NOTE | 2025-02-11 16:17 | ANESTHESIA POST OP EVALUATION ---
Anesthesia Post Eval Post Anesthesia Eval Vitals: Last Vital Signs Temp 36.0 C L 02/11/25 15:16 Pulse 84 02/11/25 16:00 Resp 21 02/11/25 16:00 BP 122/56 L 02/11/25 16:00 Pulse Ox 92 02/11/25 16:00 O2 Flow Rate 3 02/11/25 16:00 CV Function Including HR & BP: Stable Pain Control: Satisfactory Nausea & Vomiting: Negative Mental Status: Baseline Respiratory Status: Airway Patent Hydration Status: Satisfactory Anesthesia Complications: None
[2025-02-11] MEDS: MULTIVITAMIN W/MINERALS TABLET PO SCH (17:18)
[2025-02-11] MEDS ORDERED: ESZOPICLONE 2 MG PO SCH (21:00)
[2025-02-11] MEDS ORDERED: INSULIN GLARGINE-YFGN 300 UNIT/3 ML PEN SUBQ SCH (21:00)
[2025-02-11] MEDS: AMIODARONE 200 MG TABLET PO SCH (22:08)
[2025-02-11] MEDS: INSULIN GLARGINE-YFGN 300 UNIT/3 ML PEN SUBQ SCH (22:09)
--- NOTE | 2025-02-12 07:42 | PROVIDER PROGRESS NOTE ---
<Statement entered by Sekou Malagon, DO - 02/12/25 14:30> I was present with the medical student on the hospitalist service. I personally verified the history of present illness and performed the physical examination and medical decision making. I have verified the medical students documentation for this encounter and agree with the plan of care below. In addition 65-year-old lady who came in with pyelonephritis, status post stenting with urology. She has been found to have Proteus bacteremia. She is improving on IV ceftriaxone. Will give 4 days of IV therapy before de- escalating to oral therapy. This will happen tomorrow, she can likely discharge thereafter. Improving appropriately. Case was reviewed with case management today. PT to evaluate for deconditioning and sacral ulcer is indicative of her immobility at home. Subjective Prog Note Date Prog Note Date: 02/12/25 Prog Note Time: 07:40 Subjective Pt reports feeling: Improved Subjective: Vital signs reviewed. Patient remains afebrile, Tmax 36.8. Not tachycardic. Blood pressure stable, systolics 130s. Awaiting urine culture and blood culture susceptibilities. Patient overall feeling improved. Now post-op day 1 of stent placement. Abdominal pain is better and patient is eating comfortably without nausea or vomit. Having independent bowel movements and appropriate urine. Her peripheral neuropathy is also improved now that she is on her home Lyrica. She does report some unassociated back pain. Blood sugars however remain quite elevated, greater than 300 even despite increased Lantus 20 units. No labs ordered for this morning. Will get CBC and BMP Otherwise increasing her insulin regimen. Her blood sugars overnight were relatively stable, however this does not account for the insulin she received nightly with a blood sugar greater than 400. Will increase her long-acting and prandial insulins. Increase to high-dose correctional. Continue to monitor carefully. Denies fevers or chills, dyspnea, chest pain. Denies dysuria. Current Medications Current Medications Current Medications: Current Medications Generic Name Dose Route Start Last Admin Trade Name Freq PRN Reason Stop Dose Admin Acetaminophen 650 mg 02/10/25 18:50 02/11/25 09:46 Acetaminophen 325 Mg Tablet PO 650 mg Q4HR PRN Administration Pain 1 to 4, or Fever Hydrocodone Bitart/Acetaminophen 1 tab 02/11/25 10:21 02/11/25 22:23 Hydrocod/Acetam 5/325 Mg Tablet PO 1 tab Q4HR PRN Administration Moderate Pain (Level 4-6) Albuterol/Ipratropium 3 ml 02/10/25 17:39 Ipratropium/Albuterol 3 Ml Neb INH RTQID PRN Shortness of Air/Wheezing Amiodarone HCl 200 mg 02/11/25 21:00 02/11/25 22:08 Amiodarone 200 Mg Tablet PO 200 mg BID SHELLI Administration Bumetanide 2 mg 02/12/25 09:00 Bumetanide 1 Mg Tablet PO DAILY SHELLI Ceftriaxone Sodium 1 gm 02/11/25 09:00 02/11/25 08:26 Ceftriaxone 1 Gm Vial IVP 1 gm DAILY SHELLI Administration Duloxetine HCl 30 mg 02/11/25 21:00 02/11/25 22:08 Duloxetine 30 Mg Capsule PO 30 mg QPM SHELLI Administration Duloxetine HCl 60 mg 02/11/25 21:00 02/11/25 22:08 Duloxetine 60 Mg Capsule PO 60 mg QPM SHELLI Administration Lactated Ringer's 1,000 mls @ 0 mls/hr 02/11/25 14:52 Lr IV .Q0M PRN preop TKO Insulin Glargine-yfgn 25 unit 02/11/25 21:00 02/11/25 22:09 Insulin Glargine-Yfgn 300 Unit/3 Ml Pen SUBQ 25 unit QPM SHELLI Administration Insulin Human Lispro 7 unit 02/11/25 17:00 02/11/25 17:17 Insulin Lispro 300 Unit/3 Ml Pen SUBQ 7 unit TIDWM SHELLI Administration Insulin Human Lispro 1 - 9 unit 02/11/25 22:00 02/11/25 22:11 Insulin Lispro 300 Unit/3 Ml Pen SUBQ 9 unit 0800,1200,1700,2100 SHELLI Administration Protocol Multivitamins/Minerals 1 tab 02/11/25 17:00 02/11/25 17:18 Multivitamin W/Minerals Tablet PO 1 tab DAILYWM SHELLI Administration Ondansetron HCl 4 mg 02/10/25 18:50 Ondansetron Odt 4 Mg Tablet TL Q6HR PRN Nausea / Vomiting Ondansetron HCl 4 mg 02/10/25 18:50 Ondansetron 4 Mg/2 Ml Vial IVP Q6HR PRN Nausea / Vomiting Letrozole 2.5 Mg 1 each 02/11/25 21:00 02/11/25 22:10 Tablet PO Not Given QPM SHELLI Pregabalin 100 mg 02/11/25 11:00 02/11/25 22:14 Pregabalin 100 Mg Capsule PO 100 mg QID SHELLI Administration Pregabalin 50 mg 02/11/25 11:00 02/11/25 22:13 Pregabalin 25 Mg Capsule PO 50 mg QID SHELLI Administration Sodium Chloride 10 ml 02/10/25 18:50 Sodium Chloride Flush 0.9% 10 Ml Syringe IVP PRN PRN NEEDED PER PROVIDER ORDERS Sodium Chloride 10 ml 02/11/25 01:00 02/12/25 01:19 Sodium Chloride Flush 0.9% 10 Ml Syringe IVP 10 ml 0100,0900,1700 SHELLI Administration Zinc Oxide 113 gm 02/11/25 21:01 Cod Liver Oil/Zinc Oxide 113 Gm Tube TOP PRN PRN Skin Care Objective Vital Signs/Intake & Output Reviewed Vital Signs: Yes Vital Signs: Vital Signs x48h Temp Pulse Resp BP Pulse Ox O2 Flow Rate 02/12/25 07:35 36.3 C L 78 18 131/71 H 98 3 Intake & Output: Intake & Output 02/09/25 02/10/25 02/11/25 02/12/25 23:59 23:59 23:59 23:59 Intake Total 820 / 820 1668 / 1668 Output Total 425 / 425 850 / 850 300 / 300 Balance 395 / 395 818 / 818 -300 / -300 Weight (kg) 108.5 kg Objective Comments/Other: Gen: Well nourished and well developed. Sitting up comfortably in bed, eating breakfast. No acute distress. Heent: Normocephalic/atraumatic, normal appearance of external ears and nose. Cardiac: Regular rate and rhythm. No murmurs appreciated. No visible JVP elevation. Equal radial pulses 2+, non-pitting edema of lower extremities Pulm: On RA. Normal respirations without increased effort. Clear to auscultation throughout without wheezes, rales or rhonchi. Abdomen: Large, soft, rounded. Nontender to palpation throughout without guarding or rigidity. : Hager removed. Purewick in place. Extremities: Moves all 4 extremities equally. Normal tone. Neuro: A&Ox4. Face symmetric, CN II through XII intact grossly. No focal neurologic deficits. Psych: Good fund of knowledge. Judgment intact. Skin: Decubitus ulcers noted on images - sacral wound and eschar on L heel Lab Results 02/12/25 08:27 02/12/25 08:27 Other Labs: Lab Results x24hrs 02/12/25 02/11/25 02/11/25 Range/Units 07:25 21:09 16:47 POC Whole Bld Glucose 343 408 281 (70-100) mg/dL Estimat Average Glucose (70-100) mg/dL Hemoglobin A1c % (4.27-6.07) % Urine HCG, Qual 02/11/25 02/11/25 02/11/25 Range/Units 15:18 13:05 10:32 POC Whole Bld Glucose 263 305 308 (70-100) mg/dL Estimat Average Glucose (70-100) mg/dL Hemoglobin A1c % (4.27-6.07) % Urine HCG, Qual 02/11/25 02/11/25 02/11/25 Range/Units 09:33 08:10 05:00 POC Whole Bld Glucose 327 (70-100) mg/dL Estimat Average Glucose 292 H (70-100) mg/dL Hemoglobin A1c % 11.8 H (4.27-6.07) % Urine HCG, Qual NEGATIVE Diagnostic Imaging Diagnostic Imaging Results: positive Final report reviewed Diagnostic Imaging Comments: 02-10-2025 CXR, no comparisons. Moderate perihilar airspace opacities with bilateral interstitial opacities and trace bilateral pleural effusions. Findings are concerning for pulmonary edema. 02-10-2025 CT Head w/o contrast Normal, without mass or hemorrhage. 02-10-2025 CTA pulmonary Normal, without PE or acute process 02-10-2025 CT AP Delayed left nephrogram with a 13 mm nonobstructive stone in the left renal pelvis. Mild stranding of the left ureter. Sepsis Event Note (H) Evaluation Current Stage of Sepsis: Sepsis Possible source of Sepsis: positive Genitourinary Sepsis Criteria Sepsis Criteria: Recorded Temperature greater than 38.3C or Less than 36C, Recorded Heart Rate greater than 90 bpm and WBC count greater than 12,000 or less than 4000 Assessment/Plan Problem List (1) Bacteremia due to Gram-negative bacteria: Impression: 2/2 blood culture bottles positive for GNB. Proteus identified on PCR, which is consisted with as source, with positive UA and renal calculus seen on CTAP. Underwent cystoscopy and stent placement 02-11 with no complications. Responding well to ceftriaxone 1g. Today is day 3 of IV antibiotics. Patient remains afebrile, leukocytosis resolved. - Advancing to full diet as tolerated, hager catheter removed. - Continue Rocephin, plan for at least 7-day treatment of antibiotics. Likely de-escalate to oral tomorrow. - Awaiting susceptibilities - PT/OT evaluation (2) Sepsis: Qualifiers: Sepsis acute organ dysfunction status: unspecified Sepsis type: sepsis due to unspecified organism Qualified Code(s): A41.9 - Sepsis, unspecified organism (3) Acute pyelonephritis: (4) Renal calculus, left: Impression: S/p cystoscopy with stent placement 02-11. Patient presented septic, with tachycardia, leukocytosis, temperature as high as 100.1. CT abdomen/pelvis shows delayed left nephrogram with a 13 mm nonobstructive stone in the left renal pelvis. Mild stranding of the left ureter. UA positive for Proteus, as seen on blood cultures. She is having more back pain, but is midline and more suggestive of either mechanical back pain or may be associated with her sacral decubitus ulcer. No flank pain. - Continue Rocephin as above - Patient is eating and drinking, discontinue IV fluids, encourage oral hydration. - PRN Tylenol and Steens prn for pain - Monitor renal function, creatinine a.m. (5) Diabetes mellitus: Impression: Hyperglycemia, POC glucose has been >300s during admission, even while npo. Patient states she takes 75-86units of Lantus at home in addition to meal time insulin. This is questionable as pharmacy completed medication review and she has not picked up her Lantus in the outpatient. Also on Jardiance and Ozempic. A1c 11.8% - Increased Lantus 35 units at night - Lispro 10 units with meals - Had a sliding scale insulin, carb controlled diet - Goal sugars <180, hypoglycemia protocol - Hold off on Jardiance while she has UTI. - Likely resume Ozempic upon discharge. Qualifiers: Diabetes mellitus complication status: without complication Diabetes mellitus intermediate insulin use: without intermediate use Diabetes mellitus type: t ype 2 Qualified Code(s): E11.9 - Type 2 diabetes mellitus without complications (6) Diabetic neuropathy: Qualifiers: Diabetes mellitus complication detail: diabetic mononeuropathy Diabetes mellitus type: type 2 Qualified Code(s): E11.41 - Type 2 diabetes mellitus with diabetic mononeuropathy (7) Chronic, continuous use of opioids: Impression: Patient reports controlled on home Lyrica and scheduled dilaudid. - Continue Lyrica - Multimodal pain control as above (8) Acute metabolic encephalopathy: Impression: Resolved. Mental status changes attributed to active infection and hyperglycemia. CT head without acute infarct. - Continue home eszopiclone for sleep (9) Hypokalemia: Impression: Resolved. 3.4 -> 3.9. Likely dilutional. Patient now tolerating normal diet and fluids. Mg is 1.8. - Monitor, BMP in am. (10) Thrombocytopenia: Impression: Mild and stable. Plt 129 -> 125, without evidence of bleeding. Suspect dilutional. Was not on any NSAIDs or antiplatelets. - Monitor, CBC in am. - Lovenox for DVT ppx started today (11) Subclinical hypothyroidism: Impression: TSH elevated, T4 normal suggestive of subclinical hypothyroidism. Her mental status is now back at baseline. No treatment needed at this time. - Recommend follow-up in outpatient setting. (12) Decubitus ulcers: Impression: Present on arrival. Stage I and stage II. Stable. Images documented. Sacral ulcers and L heel eschar. - Wound care - Encourage change positions frequently - PT eval as above Qualifiers: Laterality: unspecified laterality Pressure injury location: hip P ressure injury stage: stage 1 Qualified Code(s): L89.201 - Pressure ulcer of unspecified hip, stage 1 (13) GINA (obstructive sleep apnea): Impression: Continue CPAP with supplemental 3L O2. (14) COPD (chronic obstructive pulmonary disease): Impression: Not in active exacerbation. Continue albuterol prn. Qualifiers: COPD type: unspecified COPD Qualified Code(s): J44.9 - Chronic obstructive pulmonary disease, unspecified (15) Aortic valve stenosis: Qualifiers: Cardiac valve disease etiology: etiology unspecified Qualified Code(s): I35.0 - Nonrheumatic aortic (valve) stenosis (16) Pacemaker: Impression: Stable. Suspect complex heart history. Patient reports failing valve replacement leading to the recent placement of her pacemaker (in October). She is currently taking amiodarone. Sees cardiology, Dr. Corona in [place]? She lives in [place]. Will attempt to obtain outside records. She is on a home diuretic, unclear etiology. No prior echoes. Will continue diuresis at home dose. - Continue home dose amiodarone 200mg BID - Continue home dose torsemide 40mg (Formulary equivalent is Bumex 2 mg)
[2025-02-12] MEDS: BUMETANIDE 1 MG TABLET PO SCH (08:12)
[2025-02-12] MEDS: INSULIN LISPRO 300 UNIT/3 ML PEN SUBQ SCH ×2 (08:38)
[2025-02-12 08:46] LABS: HCT - HEMATOCRIT 37.1 % (37.0-47.0); HGB - HEMOGLOBIN 10.7 g/dL (12.0-16.0); PLT - PLATELET COUNT 125 10^3/uL (130-450); RED CELL DISTRIBUTION WIDTH 23.7 % (12.0-15.0)
[2025-02-12 08:58] LABS: BASOPHILS # (MANUAL) 0.0 10^3/uL (0-0.1)
[2025-02-12] MEDS ORDERED: ASCORBIC ACID 500 MG TABLET PO SCH (09:00)
[2025-02-12 09:02] LABS: BUN - BLOOD UREA NITROGEN 27.0 mg/dL (6-20); CARBON DIOXIDE - CO2 28.0 mmol/L (21-32); CREATININE 0.8 mg/dL (0.6-1.3); GFR - MDRD 72.0 (>89)
--- NOTE | 2025-02-12 09:04 | OPERATIVE REPORT ---
Operative Report General Admit Date: 02/11/25 Procedure Data: Operation Date: 02/11/25 14:00 Proposed Procedures p Cystoscopy With Ureteral Stent Placement(Left) - Cooper Tolliver MD Actual Procedures p Cystoscopy With Ureteral Stent Placement(Left) - Cooper Tolliver MD Pre-Op Diagnosis: ACUTE PYELONEPHRITIS Anesthesia Type General Case Staff Anesthesia Provider: Santiago Mejía Case Times Into Recovery: 02/11/25 15:16 Procedure Start: 02/11/25 15:00 Procedure End: 02/11/25 15:10 Time out: 02/11/25 14:59 Implants STENT URETERAL [id number] Pre-Op Diagnosis: left kidney stone,sepsis Post Op Diagnosis: same Procedure Note Estimated Blood Loss (ml): 0 Complications: none Other Other Information/Narrative: After informed consent was obtained the patient was brought to the OR and laid in the supine position. The patient was anesthetized per anesthesia protocols and prepped and draped in usual sterile fashion in the dorsolithotomy position. A formal timeout was performed reconfirming the patient and procedure and laterality. A 22 Finnish cystoscope was advanced easily per urethra into the urinary bladder. The bladder was inspected in full and there were no masses or lesions or other concerns. A sensor wire was placed upper left ureteral orifice up into the kidney where a soft radiopaque stone was identified. A 6 Finnish 22 cm stent was placed with good curling noted in the kidney and good curling noted in the bladder. The bladder was emptied and Uro-Jet was placed. This concluded the procedure and the patient tolerated the procedure well. She was brought to the PACU and sent to the medical team as planned. She will follow-up with the urologist or myself in the future for definitive stone management
[2025-02-12 09:29] LABS: ABNORMAL LYMPHS % (MANUAL) 1 %; BAND NEUTROPHILS % (MANUAL) 11 %; EOSINOPHILS # (MANUAL) 0.1 10^3/uL (0-0.7); LYMPHOCYTES # (MANUAL) 0.6 10^3/uL (1.5-3.5); LYMPHOCYTES % (MANUAL) 6 %; MONOCYTES # (MANUAL) 0.6 10^3/uL (0.0-1.0); NEUTROPHILS # (MANUAL) 7.9 10^3/uL (1.5-6.6)
[2025-02-12 09:31] LABS: PLATELET ESTIMATE, MANUAL DECREASED (<130,000) (NORMAL); PLATELET MORPHOLOGY NORMAL APPEARANCE (NORMAL); WBC MORPHOLOGY (MULTIPLE) NORMAL APPEARANCE (NORMAL)
--- NOTE | 2025-02-12 12:38 | XRAY Report ---
PROCEDURE: [place] OR C-Arm Procedure INDICATIONS: Surgical Procedure TECHNIQUE: Intraoperative fluoroscopic guidance was provided and low-resolution fluoroscopic spot films were obtained. COMPARISON: None. FINDINGS: Low-resolution intraoperative spot films show a short segment of catheter. Location undetermined. IMPRESSION: Fluoroscopic guidance. Reviewed by: Davey Rogers MD on 02/12/2025 11:35 AM [facility] Approved by: Davey Rogers MD on 02/12/2025 11:[address] [facility] Station ID: [id number]
[2025-02-12] MEDS: ENOXAPARIN 40 MG/0.4 ML SYRINGE SUBQ SCH (13:21)
[2025-02-12] MEDS: LACTATED RINGERS 500 ML IV ONE (16:22)
--- NOTE | 2025-02-12 16:34 | PT Plan of Care ---
PT Plan of Care Physical Therapy Plan of Care: Diagnosis Diagnosis bacteremia Diagnosis acute pyelonephritis, sepsis Referring Provider Sekou Malagon Patient Status Inpatient Chief Complaint Chief Complaint weakness Onset of Chief Complaint RN DOCUMENT IMPROVEMENT SPECIALIST Surgical History (Updated 02/11/25 @ 13:33 by Santiago Mejía CRNA) History of permanent cardiac pacemaker placement S/P TAVR (transcatheter aortic valve replacement) Balance/ Functional Results Sitting Balance Good Standing Balance Fair Assessment Assessment Pt is a 65yo F referred for PT eval d/t limited mobility. Admitted with AMS and sepsis, found to have bacteremia and acute pyelonephritis. Pt was staying in a local hotel while visiting her dtr who lives in [place]. Pt normally lives indep in multistory home with ramp to enter, chair lift on stairs, and is a limited ambulatory using FWW. Has walk in shower with seat. Complex medical history including DM, breast cx, COPD, aortic stenosis, TAVR and recent pacemaker, reportedly placed October 2024. Please see medical record for further PMH. Cleared for eval by hospitalist. Upon PT eval, A &Ox3-4 but tangential and easily distracted. Reports back pain at rest but agrees to participate. Requires modAx2 overall for transfers and demonstrates moderate retropulsion in standing despite FWW and modA. Stand pivot transfer to chair is max mobility during eval d/ t weakness, retropulsion, and rapid fatigue. Given presentation of deconditioning, pain, and limited mobility, pt will benefit from skilled PT in acute setting to progress functional mobility and upright tolerance. When medically clear, PT rec dc to SNF for continued rehab. Goals Improve bed mobility to: Moderate Assist Improve supine to sit to: Minimal Assist Improve sit to stand to: Minimal Assist Improve pivot transfer ability Minimal Assist to: Improve sit to supine to: Minimal Assist Improve gait ability to: Min A Assistive Device Used: Front Wheeled Walker Improve Sitting Balance to: Good Improve Standing Balance to: Good PT Plan of Care Frequency 1-2x/day Duration Until discharge Discharge Recommendations Discharge Location [facility] Transport Needs at Discharge [facility] Other BLS d/t sacral ulcer
--- NOTE | 2025-02-12 17:10 | XRAY Report ---
EXAM: XR Chest 1V DATE: 02/12/2025 4:45 PM PDT INDICATION: 65 years Female with hypoxia TECHNIQUE: Single portable frontal view of the chest was obtained. LIMITATION: None. COMPARISON: 02/10/2025 FINDINGS: Lung parenchyma: Left prominent bronchovascular markings. No new confluent consolidation. Pleural spaces: No significant pleural effusion or definite focal lesion seen. Cardiomediastinum and kimberly: Stable cardiomegaly post aortic valve replacement. Stable PowerPort and pacemaker leads. Osseous structures: No suspicious or acute focal lesion seen. Chest wall: No significant focal lesion seen. IMPRESSION: Probable improved congestive changes, no new infiltrate or significant pleural effusion seen. Reviewed by: Mauri Mcmahan MD on 02/12/2025 5:07 PM PDT Approved by: Mauri Mcmaahn MD on 02/12/2025 5:07 PM PDT Station ID: [id number]
[2025-02-12] MEDS: PREGABALIN 100 MG CAPSULE PO SCH (18:55)
[2025-02-12] MEDS: PREGABALIN 25 MG CAPSULE PO SCH (18:55)
[2025-02-12] MEDS: INSULIN GLARGINE-YFGN 300 UNIT/3 ML PEN SUBQ SCH (22:05)
[2025-02-13] MEDS: COD LIVER OIL/ZINC OXIDE 113 GM TUBE TOP PRN (05:02)
[2025-02-13 05:09] LABS: HCT - HEMATOCRIT 36.1 % (37.0-47.0); HGB - HEMOGLOBIN 10.7 g/dL (12.0-16.0); PLT - PLATELET COUNT 105 10^3/uL (130-450); RED CELL DISTRIBUTION WIDTH 22.9 % (12.0-15.0)
[2025-02-13 05:24] LABS: BUN - BLOOD UREA NITROGEN 29.0 mg/dL (6-20); CARBON DIOXIDE - CO2 29.0 mmol/L (21-32); CREATININE 0.7 mg/dL (0.6-1.3); GFR - MDRD 84.0 (>89)
--- NOTE | 2025-02-13 07:23 | PROVIDER PROGRESS NOTE ---
Subjective Prog Note Date Prog Note Date: 02/13/25 Prog Note Time: 07:19 Subjective Subjective: Patient seen and evaluated today. No vital signs charted overnight interestingly. She is on 2 L via nasal cannula. Good saturations. Remainder vital signs are normal this morning. Afebrile. Sodium is 132, slightly down from yesterday at 135. K3.2 and replenished. Glucose came from 343-217 overnight. Notably she received 10 units of lispro prior to bed and presumably was fasting through the night. Will keep glargine at 35 units. Blood cultures and urine culture still pending sensitivities. Leukocytosis remains resolved. Hemoglobin stable at 10.7. Platelets 105 down from 125. Down from 151 on admission. Continuing to monitor. She is having some more profound right upper quadrant abdominal pain this morning. She unfortunately just finished eating breakfast. No leukocytosis as above. She does not have any nausea or vomiting. She is agreeable with ongoing pain management and will get an ultrasound later today after she is able to fast for some time. Current Medications Current Medications Current Medications: Current Medications Generic Name Dose Route Start Last Admin Trade Name Freq PRN Reason Stop Dose Admin Acetaminophen 650 mg 02/10/25 18:50 02/12/25 23:53 Acetaminophen 325 Mg Tablet PO 650 mg Q4HR PRN Administration Pain 1 to 4, or Fever Hydrocodone Bitart/Acetaminophen 1 tab 02/11/25 10:21 02/13/25 05:03 Hydrocod/Acetam 5/325 Mg Tablet PO 1 tab Q4HR PRN Administration Moderate Pain (Level 4-6) Albuterol/Ipratropium 3 ml 02/10/25 17:39 Ipratropium/Albuterol 3 Ml Neb INH RTQID PRN Shortness of Air/Wheezing Amiodarone HCl 200 mg 02/11/25 21:00 02/12/25 22:01 Amiodarone 200 Mg Tablet PO 200 mg BID SHELLI Administration Bumetanide 2 mg 02/12/25 09:00 02/12/25 08:12 Bumetanide 1 Mg Tablet PO 2 mg DAILY SHELLI Administration Ceftriaxone Sodium 1 gm 02/11/25 09:00 02/12/25 09:29 Ceftriaxone 1 Gm Vial IVP 1 gm DAILY SHELLI Administration Duloxetine HCl 30 mg 02/11/25 21:00 02/12/25 22:01 Duloxetine 30 Mg Capsule PO 30 mg QPM SHELLI Administration Duloxetine HCl 60 mg 02/11/25 21:00 02/12/25 22:01 Duloxetine 60 Mg Capsule PO 60 mg QPM SHELLI Administration Enoxaparin Sodium 40 mg 02/12/25 12:00 02/12/25 13:21 Enoxaparin 40 Mg/0.4 Ml Syringe SUBQ 40 mg DAILY SHELLI Administration Insulin Glargine-yfgn 35 unit 02/12/25 21:00 02/12/25 22:05 Insulin Glargine-Yfgn 300 Unit/3 Ml Pen SUBQ 35 unit QPM SHELLI Administration Insulin Human Lispro 12 unit 02/12/25 08:00 02/12/25 17:54 Insulin Lispro 300 Unit/3 Ml Pen SUBQ 12 unit TIDWM SHELLI Administration Insulin Human Lispro 2 - 10 unit 02/12/25 08:00 02/12/25 22:04 Insulin Lispro 300 Unit/3 Ml Pen SUBQ 10 unit 0800,1200,1700,2100 SHELLI Administration Protocol Multivitamins/Minerals 1 tab 02/11/25 17:00 02/12/25 08:39 Multivitamin W/Minerals Tablet PO 1 tab DAILYWM SHELLI Administration Ondansetron HCl 4 mg 02/10/25 18:50 Ondansetron Odt 4 Mg Tablet TL Q6HR PRN Nausea / Vomiting Ondansetron HCl 4 mg 02/10/25 18:50 Ondansetron 4 Mg/2 Ml Vial IVP Q6HR PRN Nausea / Vomiting Letrozole 2.5 Mg 1 each 02/11/25 21:00 02/12/25 22:02 Tablet PO Not Given QPM [facility] Polyethylene Glycol 17 gm 02/12/25 14:20 02/12/25 16:22 Polyethylene Glycol 3350 17 Gm Packet PO 17 gm DAILY SHELLI Administration Pregabalin 100 mg 02/12/25 19:00 02/13/25 05:03 Pregabalin 100 Mg Capsule PO 100 mg Q6H SHELLI Administration Pregabalin 50 mg 02/12/25 19:00 02/13/25 05:03 Pregabalin 25 Mg Capsule PO 50 mg Q6H SHELLI Administration Sodium Chloride 10 ml 02/10/25 18:50 Sodium Chloride Flush 0.9% 10 Ml Syringe IVP PRN PRN NEEDED PER PROVIDER ORDERS Sodium Chloride 10 ml 02/11/25 01:00 02/12/25 23:53 Sodium Chloride Flush 0.9% 10 Ml Syringe IVP 10 ml 0100,0900,1700 SHELLI Administration Zinc Oxide 113 gm 02/11/25 21:01 02/13/25 05:02 Cod Liver Oil/Zinc Oxide 113 Gm Tube TOP 1 applic PRN PRN Administration Skin Care Objective Vital Signs/Intake & Output Reviewed Vital Signs: Yes Vital Signs: Vital Signs x48h Temp Pulse Resp BP Pulse Ox O2 Flow Rate 02/13/25 05:03 2 02/12/25 23:39 36.7 C 18 132/93 H 97 2 02/12/25 23:29 78 2 Intake & Output: Intake & Output 02/10/25 02/11/25 02/12/25 02/13/25 23:59 23:59 23:59 23:59 Intake Total 820 / 820 1668 / 1668 3360 / 3360 Output Total 425 / 425 850 / 850 2400 / 2400 1400 / 1400 Balance 395 / 395 818 / 818 960 / 960 -1400 / -1400 Weight (kg) 108.5 kg Objective Comments/Other: Gen: Well nourished and well developed. Sitting up comfortably in bed, eating breakfast. No acute distress. Heent: Normocephalic/atraumatic, normal appearance of external ears and nose. Cardiac: Regular rate and rhythm. No murmurs appreciated. No visible JVP elevation. Equal radial pulses 2+, non-pitting edema of lower extremities Pulm: On RA. Normal respirations without increased effort. Clear to auscultation throughout without wheezes, rales or rhonchi. Abdomen: Large, soft, rounded. Tender in the right upper quadrant. Allodynic. No rebound tenderness or guarding. Bowel tones present. Extremities: Moves all 4 extremities equally. Normal tone. Neuro: A&Ox4. Face symmetric, CN II through XII intact grossly. No focal neurologic deficits. Psych: Good fund of knowledge. Judgment intact. Skin: Decubitus ulcers noted on images - sacral wound and eschar on L heel, Stable per last evaluation 02/12 Lab Results 02/13/25 04:56 02/13/25 04:56 Other Labs: Lab Results x24hrs 02/13/25 02/12/25 02/12/25 Range/Units 04:56 20:32 16:58 WBC 7.3 (4.8-10.8) x10^3/uL RBC 4.94 (4.20-5.40) 10^6/uL Hgb 10.7 L (12.0-16.0) g/dL Hct 36.1 L (37.0-47.0) % MCV 73.1 L (81.0-99.0) fL MCH 21.7 L (27.0-31.0) pg MCHC 29.6 L (32.0-36.0) g/dL RDW 22.9 H (12.0-15.0) % Plt Count 105 L (130-450) 10^3/uL Neut # (Auto) Lymph # (Auto) [place] # (Auto) Eos # (Auto) Baso # (Auto) Absolute Nucleated RBC Total Counted Band Neuts % (Manual) (0 - 10) % Abnorm Lymph % (Manual) % Nucleated RBC % Neutrophils # (Manual) (1.5-6.6) 10^3/uL Lymphocytes # (Manual) (1.5-3.5) 10^3/uL Monocytes # (Manual) (0.0-1.0) 10^3/uL Eosinophils # (Manual) (0-0.7) 10^3/uL Basophils # (Manual) (0-0.1) 10^3/uL Differential Comment WBC Morphology (NORMAL) Platelet Estimate (NORMAL) Platelet Morphology (NORMAL) RBC Morph Micro Appear (NORMAL) Sodium 132 L (135-145) mmol/L Potassium 3.2 L (3.5-4.5) mmol/L Chloride 96 L (101-111) mmol/L Carbon Dioxide 29 (21-32) mmol/L Anion Gap 7.0 (6-13) BUN 29 H (6-20) mg/dL Creatinine 0.7 (0.6-1.3) mg/dL Estimated GFR (MDRD) 84 L (>89) Glucose 217 H (74-104) mg/dL POC Whole Bld Glucose 343 326 (70-100) mg/dL Calcium 8.0 L (8.5-10.3) mg/dL 02/12/25 02/12/25 02/12/25 Range/Units 11:14 08:27 08:27 WBC 9.2 (4.8-10.8) x10^3/uL RBC 4.97 (4.20-5.40) 10^6/uL Hgb 10.7 L (12.0-16.0) g/dL Hct 37.1 (37.0-47.0) % MCV 74.6 L (81.0-99.0) fL MCH 21.5 L (27.0-31.0) pg MCHC 28.8 L (32.0-36.0) g/dL RDW 23.7 H (12.0-15.0) % Plt Count 125 L (130-450) 10^3/uL Neut # (Auto) Not Reportable Lymph # (Auto) Not Reportable [place] # (Auto) Not Reportable Eos # (Auto) Not Reportable Baso # (Auto) Not Reportable Absolute Nucleated RBC Not Reportable Total Counted 100 Band Neuts % (Manual) 11 H (0 - 10) % Abnorm Lymph % (Manual) 1 % Nucleated RBC % Not Reportable Neutrophils # (Manual) 7.9 H (1.5-6.6) 10^3/uL Lymphocytes # (Manual) 0.6 L (1.5-3.5) 10^3/uL Monocytes # (Manual) 0.6 (0.0-1.0) 10^3/uL Eosinophils # (Manual) 0.1 (0-0.7) 10^3/uL Basophils # (Manual) 0.0 (0-0.1) 10^3/uL Differential Comment MANUAL DIFFERENTIAL WBC Morphology NORMAL APPEARANCE (NORMAL) Platelet Estimate DECREASED (<130,000) (NORMAL) Platelet Morphology NORMAL APPEARANCE (NORMAL) RBC Morph Micro Appear 1+ HYPOCHROMASIA 1+ ANISOCYTOSIS (NORMAL) Sodium 135 (135-145) mmol/L Potassium 3.9 (3.5-4.5) mmol/L Chloride 101 (101-111) mmol/L Carbon Dioxide 28 (21-32) mmol/L Anion Gap 6.0 (6-13) BUN 27 H (6-20) mg/dL Creatinine 0.8 (0.6-1.3) mg/dL Estimated GFR (MDRD) 72 L (>89) Glucose 349 H (74-104) mg/dL POC Whole Bld Glucose 376 (70-100) mg/dL Calcium 8.6 (8.5-10.3) mg/dL 02/12/25 Range/Units 07:25 WBC (4.8-10.8) x10^3/uL RBC (4.20-5.40) 10^6/uL Hgb (12.0-16.0) g/dL Hct (37.0-47.0) % MCV (81.0-99.0) fL MCH (27.0-31.0) pg MCHC (32.0-36.0) g/dL RDW (12.0-15.0) % Plt Count (130-450) 10^3/uL Neut # (Auto) Lymph # (Auto) [place] # (Auto) Eos # (Auto) Baso # (Auto) Absolute Nucleated RBC Total Counted Band Neuts % (Manual) (0 - 10) % Abnorm Lymph % (Manual) % Nucleated RBC % Neutrophils # (Manual) (1.5-6.6) 10^3/uL Lymphocytes # (Manual) (1.5-3.5) 10^3/uL Monocytes # (Manual) (0.0-1.0) 10^3/uL Eosinophils # (Manual) (0-0.7) 10^3/uL Basophils # (Manual) (0-0.1) 10^3/uL Differential Comment WBC Morphology (NORMAL) Platelet Estimate (NORMAL) Platelet Morphology (NORMAL) RBC Morph Micro Appear (NORMAL) Sodium (135-145) mmol/L Potassium (3.5-4.5) mmol/L Chloride (101-111) mmol/L Carbon Dioxide (21-32) mmol/L Anion Gap (6-13) BUN (6-20) mg/dL Creatinine (0.6-1.3) mg/dL Estimated GFR (MDRD) (>89) Glucose (74-104) mg/dL POC Whole Bld Glucose 343 (70-100) mg/dL Calcium (8.5-10.3) mg/dL Diagnostic Imaging Diagnostic Imaging Results: positive Final report reviewed Diagnostic Imaging Comments: 02-10-2025 CXR, no comparisons. Moderate perihilar airspace opacities with bilateral interstitial opacities and trace bilateral pleural effusions. Findings are concerning for pulmonary edema. 02-10-2025 CT Head w/o contrast Normal, without mass or hemorrhage. 02-10-2025 CTA pulmonary Normal, without PE or acute process 02-10-2025 CT AP Delayed left nephrogram with a 13 mm nonobstructive stone in the left renal pelvis. Mild stranding of the left ureter. Sepsis Event Note (H) Evaluation Current Stage of Sepsis: Sepsis Possible source of Sepsis: positive Genitourinary Sepsis Criteria Sepsis Criteria: Recorded Temperature greater than 38.3C or Less than 36C, Recorded Heart Rate greater than 90 bpm and WBC count greater than 12,000 or less than 4000 Assessment/Plan Problem List (1) Bacteremia due to Gram-negative bacteria: Impression: Intervally improved. Leukocytosis been resolved. She is on Rocephin. Source controlled post stent. 05/20 blood culture bottles positive for GNB. Proteus identified on PCR, which is consisted with as source, with positive UA and renal calculus seen on CTAP. Underwent cystoscopy and stent placement 02-11 with no complications. Responding well to ceftriaxone 1g. Today is day 3 of IV antibiotics. Patient remains afebrile, leukocytosis resolved. Little value for follow-up blood cultures and gram-negative bacteremia as long as sensitive to empiric treatment (Bernadette 2017). - Continue Rocephin sensitivities resulted 02/13, pansensitive - Continue Rocephin, 7 days EOT 02/17. Transition to Bactrim at discharge, would treat parenterally for at least 96 hours through 02/14 - Med ready 02/14 (2) Sepsis: Qualifiers: Sepsis acute organ dysfunction status: unspecified Sepsis type: sepsis due to unspecified organism Qualified Code(s): A41.9 - Sepsis, unspecified organism (3) Acute pyelonephritis: (4) Renal calculus, left: Impression: Stable, no further urinary symptoms. Voiding appropriately. S/p cystoscopy with stent placement 02-11. Patient presented septic, with tachycardia, leukocytosis, temperature as high as 100.1. CT abdomen/pelvis shows delayed left nephrogram with a 13 mm nonobstructive stone in the left renal pelvis. Mild stranding of the left ureter. UA positive for Proteus, as seen on blood cultures. She is having more back pain, but is midline and more suggestive of either mechanical back pain or may be associated with her sacral decubitus ulcer. No flank pain. Off IV fluids as of 02/12. Encouraging oral hydration. - Continue Rocephin as above - PRN Tylenol and [place] prn for pain - Strict I/O, bladder protocol - Monitor renal function, creatinine a.m. (5) Diabetes mellitus: Impression: Improving. Blood sugar still above goal, but reasonable. Trending in the mid 200s. 76U of short acting insulin used yesterday. 100U used overall. Known hx of T2DM. Patient states she takes 75-86units of Lantus at home in addition to meal time insulin. Dubious fill history however. Also on Jardiance and Ozempic. A1c 11.8%, down from prior ~14%. - Lantus increase to 40U qHS - Lispro 15 U qAC with MDSSI - Goal sugars <180, hypoglycemia protocol - Would continue holding SGLT2i given UTI - Likely resume Ozempic upon discharge. Qualifiers: Diabetes mellitus complication status: without complication Diabetes mellitus exterminator helper insulin use: without nursing home use Diabetes mellitus type: t ype 2 Qualified Code(s): E11.9 - Type 2 diabetes mellitus without complications (6) Diabetic neuropathy: Qualifiers: Diabetes mellitus complication detail: diabetic mononeuropathy Diabetes mellitus type: type 2 Qualified Code(s): E11.41 - Type 2 diabetes mellitus with diabetic mononeuropathy (7) Chronic, continuous use of opioids: Impression: Patient reports controlled on home Lyrica and scheduled dilaudid. - Continue Lyrica - Tylenol and narcotics as above (8) Acute metabolic encephalopathy: Impression: Resolved. Mental status changes attributed to active infection and hyperglycemia. CT head without acute infarct. - Continue home eszopiclone prn for sleep (9) Hypokalemia: Impression: Requiring replenishment today. - Replaced K orally today, recheck AM. (10) Thrombocytopenia: Impression: Mild and stable. Plt 129 -> 105, without evidence of bleeding. Continuing VTE ppx as long as Plt>50K. - Monitor, CBC in am. - Lovenox for DVT ppx started today (11) Subclinical hypothyroidism: Impression: TSH elevated, T4 normal suggestive of subclinical hypothyroidism. No harpreet symptoms of hyper or hypothyroidism. She did have a TSH greater than 10 which is indicative of harpreet hypothyroidism, however difficult to assess in her acutely sick state. Her mental status is now back at baseline. No treatment needed at this time. - Recheck TSH and T4 within the next 6 weeks (12) Physical deconditioning: (13) Decubitus ulcers: Impression: Ulcer present on arrival. Stage I and stage II. Stable. Images documented. Sacral ulcers and L heel eschar. Patient has had acute illness, very poor mobility. Suspect for some time given sacral ulcer. - PT recommending discharge to SNF, working on selection near her home and other providers in [place]. - Wound care - Encourage change positions frequently Qualifiers: Laterality: unspecified laterality Pressure injury location: hip P ressure injury stage: stage 1 Qualified Code(s): L89.201 - Pressure ulcer of unspecified hip, stage 1 (14) GINA (obstructive sleep apnea): Impression: Continue CPAP with supplemental 3L O2. (15) COPD (chronic obstructive pulmonary disease): Impression: Not in active exacerbation. Continue albuterol prn. Qualifiers: COPD type: unspecified COPD Qualified Code(s): J44.9 - Chronic obstructive pulmonary disease, unspecified (16) Aortic valve stenosis: Qualifiers: Cardiac valve disease etiology: etiology unspecified Qualified Code(s): I35.0 - Nonrheumatic aortic (valve) stenosis (17) Pacemaker: Impression: Stable. Patient reports failing valve replacement leading to the recent placement of her pacemaker (in October). She is currently taking amiodarone. Sees cardiology, Dr. Kat Corona in [place], She lives in [place]. She is on a home diuretic, unclear etiology. No prior echoes. Will continue diuresis at home dose. - Continue home dose amiodarone 200mg BID - Continue home dose torsemide 40mg (Formulary equivalent is Bumex 2 mg)
[2025-02-13] MEDS: POTASSIUM CHLORIDE 20 MEQ TABLET PO SCH (08:23)
[2025-02-13] MEDS: DICLOFENAC SODIUM 1% GEL 50 GM TUBE TOP PRN (13:12)
[2025-02-13] MEDS: HYDROmorphone 0.5 MG/0.5 ML SYRINGE IVP ONE (17:26)
[2025-02-13] MEDS: INSULIN LISPRO 300 UNIT/3 ML PEN SUBQ SCH (17:27)
[2025-02-13 17:56] LABS: HCT - HEMATOCRIT 37.8 % (37.0-47.0); HGB - HEMOGLOBIN 11.1 g/dL (12.0-16.0); PLT - PLATELET COUNT 112 10^3/uL (130-450); RED CELL DISTRIBUTION WIDTH 23.1 % (12.0-15.0)
[2025-02-13 18:17] LABS: ALT ALANINE AMINOTRANSFERASE 69.0 IU/L (10-60); AST ASPARTATE AMINOTRANSFERASE 69.0 IU/L (10-42); BUN - BLOOD UREA NITROGEN 25.0 mg/dL (6-20); CARBON DIOXIDE - CO2 33.0 mmol/L (21-32); CREATININE 0.7 mg/dL (0.6-1.3); GFR - MDRD 84.0 (>89)
[2025-02-13] MEDS: DEXTROSE 5%-0.45% NACL 1,000 ML IV STA (18:53)
--- NOTE | 2025-02-13 19:09 | Ultrasound Report ---
PROCEDURE: US Abdomen Limited INDICATIONS: RUQ pain, biliary colic TECHNIQUE: Real-time focused scanning was performed of the abdomen, with image documentation. Mildly limited exam. COMPARISONS: None. FINDINGS: Liver: Liver is mildly enlarged measuring 20.6 cm with heterogeneous echotexture without focal mass. Gallbladder: No gallstones, sludge, wall thickening or pericholecystic edema. Biliary ducts: Intrahepatic bile ducts are non-dilated. Extrahepatic bile duct caliber measures 5 mm. Normal is 6-7 mm or less in diameter, or 10 mm or less post-cholecystectomy. Pancreas: Not well visualized due to overlying bowel gas. Right kidney: Normal in size and echotexture. Right kidney measures 11.0 cm long. No hydronephrosis or nephrolithiasis. No solid masses. No complex renal cystic lesions which require follow-up. Miscellaneous: No free abdominal fluid. IMPRESSION: 1. Mild hepatomegaly without focal hepatic pathology. 2. Otherwise unremarkable right upper quadrant ultrasound. Reviewed by: Joe Dias MD on 02/13/2025 7:06 PM PDT Approved by: oJe Dias MD on 02/13/2025 7:06 PM PDT Station ID: [id number]
[2025-02-13] MEDS: MAG HYDROX/AL HYDROX/SIMETH 30 ML UDC PO PRN (20:55)
[2025-02-13] MEDS: INSULIN GLARGINE-YFGN 300 UNIT/3 ML PEN SUBQ SCH (20:55)
[2025-02-14 06:06] LABS: HCT - HEMATOCRIT 35.9 % (37.0-47.0); HGB - HEMOGLOBIN 10.4 g/dL (12.0-16.0); NRBC ABSOLUTE COUNT (AUTO) 0.00 x10^3/uL; NUCLEATED RED BLOOD CELLS AUTO 0.0 /100WBC; PLT - PLATELET COUNT 96 10^3/uL (130-450); RED CELL DISTRIBUTION WIDTH 22.9 % (12.0-15.0); SLIDE REVIEW? Indicated
[2025-02-14 06:24] LABS: ALT ALANINE AMINOTRANSFERASE 47.0 IU/L (10-60); AST ASPARTATE AMINOTRANSFERASE 23.0 IU/L (10-42); BUN - BLOOD UREA NITROGEN 20.0 mg/dL (6-20); CARBON DIOXIDE - CO2 32.0 mmol/L (21-32); CREATININE 0.7 mg/dL (0.6-1.3); GFR - MDRD 84.0 (>89)
[2025-02-14 06:33] LABS: PLATELET ESTIMATE, MANUAL DECREASED (<130,000) (NORMAL)
--- NOTE | 2025-02-14 08:24 | PROVIDER PROGRESS NOTE ---
<Statement entered by Sekou Malagon, DO - 02/14/25 17:43> I was present with the medical student on the hospitalist service. I personally verified the history of present illness and performed the physical examination and medical decision making. I have verified the medical students documentation for this encounter and agree with the plan of care below. In addition this is a 65 yo female with a past medical history notable for previous renal calculi, IDDM who presented for pyelonephritis. She has been found to have gram-negative bacteremia with likely source. UA is positive for both Proteus and Klebsiella. Thankfully both are sensitive to ceftriaxone as well as Bactrim. She will continue on parenteral antibiotics with ceftriaxone while she is in hospital, treating for 7-day course for complicated bacteremia. EOT 02/17. Following IDSA guidelines can stepdown early to orals with Bactrim given source is controlled post stenting with urology on day of admission. Will continue parenteral's while in house, can stepdown to Bactrim at discharge. Patient is med ready for SNF, pending insurance authorization to facility of her choice near [place]. Patient is also had some abdominal pain starting on 02/13. Workup was unremarkable. She has not had a bowel movement in a couple of days. I suspect most of her abdominal pain is from this. She is not nauseous. She is still eating. She is chronically on narcotics which may be contributing. She is on bowel protocol here advancing to add senna which we will start this evening given its 12-hour time to onset. Adjusting insulin as below Subjective Prog Note Date Prog Note Date: 02/14/25 Prog Note Time: 08:26 Subjective Pt reports feeling: Improved Subjective: Patient reports her abdominal pain is still persistent but improved from yesterday. Abdominal U/S yesterday was unremarkable for any hepatobiliary process. She now describes a dull bandlike pain across her epigastric region. Does not worsen with eating and does not seem to change with positioning. Able to tolerate her meals without nausea or vomiting. Taking Miralax now and having regular and soft bowel movements. Passing frequent flatus. She was saturating 99% on 2L O2 NC. Removed her supplemental O2, and was able to maintain 92-95 sats while talking with me. Current Medications Current Medications Current Medications: Current Medications Generic Name Dose Route Start Last Admin Trade Name Freq PRN Reason Stop Dose Admin Acetaminophen 650 mg 02/10/25 18:50 02/14/25 00:42 Acetaminophen 325 Mg Tablet PO 650 mg Q4HR PRN Administration Pain 1 to 4, or Fever Hydrocodone Bitart/Acetaminophen 1 tab 02/11/25 10:21 02/14/25 06:08 Hydrocod/Acetam 5/325 Mg Tablet PO 1 tab Q4HR PRN Administration Moderate Pain (Level 4-6) Al Hydroxide/Mg Hydroxide 30 ml 02/13/25 18:33 02/13/25 20:55 Mag Hydrox/Al Hydrox/Simeth 30 Ml Udc PO 30 ml Q4HR PRN Administration INDIGESTION Albuterol/Ipratropium 3 ml 02/10/25 17:39 Ipratropium/Albuterol 3 Ml Neb INH RTQID PRN Shortness of Air/Wheezing Amiodarone HCl 200 mg 02/11/25 21:00 02/14/25 08:06 Amiodarone 200 Mg Tablet PO 200 mg BID SHELLI Administration Bumetanide 2 mg 02/12/25 09:00 02/14/25 08:05 Bumetanide 1 Mg Tablet PO 2 mg DAILY SHELLI Administration Ceftriaxone Sodium 1 gm 02/11/25 09:00 02/14/25 08:06 Ceftriaxone 1 Gm Vial IVP 1 gm DAILY SHELLI Administration Diclofenac Sodium 2 gm 02/13/25 09:06 02/13/25 13:12 Diclofenac Sodium 1% Gel 50 Gm Tube TOP 2 gm QID PRN Administration Mild Pain (Level 1-3) Duloxetine HCl 30 mg 02/11/25 21:00 02/13/25 20:48 Duloxetine 30 Mg Capsule PO 30 mg QPM SHELLI Administration Duloxetine HCl 60 mg 02/11/25 21:00 02/13/25 20:48 Duloxetine 60 Mg Capsule PO 60 mg QPM SHELLI Administration Enoxaparin Sodium 40 mg 02/12/25 12:00 02/14/25 08:05 Enoxaparin 40 Mg/0.4 Ml Syringe SUBQ 40 mg DAILY SHELLI Administration Insulin Glargine-yfgn 40 unit 02/13/25 21:00 02/13/25 20:55 Insulin Glargine-Yfgn 300 Unit/3 Ml Pen SUBQ 40 unit QPM SHELLI Administration Insulin Human Lispro 2 - 10 unit 02/12/25 08:00 02/14/25 08:07 Insulin Lispro 300 Unit/3 Ml Pen SUBQ 6 unit 0800,1200,1700,2100 SHELLI Administration Protocol Insulin Human Lispro 15 unit 02/13/25 17:00 02/14/25 08:08 Insulin Lispro 300 Unit/3 Ml Pen SUBQ 15 unit TIDWM SHELLI Administration Multivitamins/Minerals 1 tab 02/11/25 17:00 02/14/25 08:05 Multivitamin W/Minerals Tablet PO 1 tab DAILYWM SHELLI Administration Ondansetron HCl 4 mg 02/10/25 18:50 Ondansetron Odt 4 Mg Tablet TL Q6HR PRN Nausea / Vomiting Ondansetron HCl 4 mg 02/10/25 18:50 Ondansetron 4 Mg/2 Ml Vial IVP Q6HR PRN Nausea / Vomiting Letrozole 2.5 Mg 1 each 02/11/25 21:00 02/13/25 20:58 Tablet PO Not Given QPM SHELLI Polyethylene Glycol 17 gm 02/12/25 14:20 02/14/25 08:06 Polyethylene Glycol 3350 17 Gm Packet PO 17 gm DAILY SHELLI Administration Pregabalin 100 mg 02/12/25 19:00 02/14/25 06:08 Pregabalin 100 Mg Capsule PO 100 mg Q6H SHELLI Administration Pregabalin 50 mg 02/12/25 19:00 02/14/25 06:08 Pregabalin 25 Mg Capsule PO 50 mg Q6H SHELLI Administration Sodium Chloride 10 ml 02/10/25 18:50 Sodium Chloride Flush 0.9% 10 Ml Syringe IVP PRN PRN NEEDED PER PROVIDER ORDERS Sodium Chloride 10 ml 02/11/25 01:00 02/14/25 08:07 Sodium Chloride Flush 0.9% 10 Ml Syringe IVP 10 ml 0100,0900,1700 SHELLI Administration Zinc Oxide 113 gm 02/11/25 21:01 02/13/25 20:49 Cod Liver Oil/Zinc Oxide 113 Gm Tube TOP 1 applic PRN PRN Administration Skin Care Objective Vital Signs/Intake & Output Reviewed Vital Signs: Yes Vital Signs: Vital Signs x48h Temp Pulse Resp BP Pulse Ox O2 Flow Rate 02/14/25 07:30 36.6 C 82 18 124/83 92 02/14/25 04:05 3 02/14/25 04:05 3 Intake & Output: Intake & Output 02/11/25 02/12/25 02/13/25 02/14/25 23:59 23:59 23:59 23:59 Intake Total 1668 / 1668 3360 / 3360 520 / 520 1000 / 1000 Output Total 850 / 850 2400 / 2400 3300 / 3300 800 / 800 Balance 818 / 818 960 / 960 -2780 / -2780 200 / 200 Objective Comments/Other: Gen: Well nourished and well developed. Sitting up comfortably in bed, eating breakfast. No acute distress. Heent: Normocephalic/atraumatic, normal appearance of external ears and nose. Cardiac: Regular rate and rhythm. No murmurs appreciated. No visible JVP elevation. Equal radial pulses 2+, non-pitting edema of lower extremities Pulm: On RA. Normal respirations without increased effort. Clear to auscultation throughout without wheezes, rales or rhonchi. Abdomen: Large, soft, rounded. Tenderness over the upper abdomen, nonspecific. Allodynic - patient notes 9/10 pain but says pain is improved. Without rebound tenderness or guarding. No organomegaly. Extremities: Moves all 4 extremities equally. Normal tone. Neuro: A&Ox4. Face symmetric, CN II through XII intact grossly. No focal neurologic deficits. Psych: Good fund of knowledge. Judgment intact. Skin: Decubitus ulcers noted on images - sacral wound and eschar on L heel, Stable per last evaluation 02/12. Lab Results 02/14/25 05:47 02/14/25 05:47 Other Labs: Lab Results x24hrs 02/14/25 02/14/25 02/14/25 Range/Units 07:26 05:47 05:47 WBC 7.1 (4.8-10.8) x10^3/uL RBC 4.81 (4.20-5.40) 10^6/uL Hgb 10.4 L (12.0-16.0) g/dL Hct 35.9 L (37.0-47.0) % MCV 74.6 L (81.0-99.0) fL MCH 21.6 L (27.0-31.0) pg MCHC 29.0 L (32.0-36.0) g/dL RDW 22.9 H (12.0-15.0) % Plt Count 96 L (130-450) 10^3/uL Neut # (Auto) 4.4 (1.5-6.6) 10^3/uL Lymph # (Auto) 1.1 L (1.5-3.5) 10^3/uL Rolette # (Auto) 1.2 H (0.0-1.0) 10^3/uL Eos # (Auto) 0.2 (0.0-0.7) 10^3/uL Baso # (Auto) 0.1 (0.0-0.1) 10^3/uL Absolute Nucleated RBC 0.00 x10^3/uL Nucleated RBC % 0.0 /100WBC Manual Slide Review Indicated Platelet Estimate DECREASED (<130,000) (NORMAL) RBC Morph Micro Appear 2+ ANISOCYTOSIS 2+ HYPOCHROMASIA (NORMAL) Sodium 134 L (135-145) mmol/L Potassium 3.2 L (3.5-4.5) mmol/L Chloride 96 L (101-111) mmol/L Carbon Dioxide 32 (21-32) mmol/L Anion Gap 6.0 (6-13) BUN 20 (6-20) mg/dL Creatinine 0.7 (0.6-1.3) mg/dL Estimated GFR (MDRD) 84 L (>89) Glucose 261 H (74-104) mg/dL POC Whole Bld Glucose 247 (70-100) mg/dL Lactic Acid (0.5-2.2) mmol/L Calcium 8.0 L (8.5-10.3) mg/dL Magnesium (1.7-2.3) mg/dL Total Bilirubin 0.4 (0.2-1.0) mg/dL AST 23 (10-42) IU/L ALT 47 (10-60) IU/L Alkaline Phosphatase 223 H (42-121) IU/L Total Protein 5.1 L (6.4-8.9) g/dL Albumin 2.7 L (3.2-5.5) g/dL Globulin 2.4 (2.1-4.2) g/dL Albumin/Globulin Ratio 1.1 (1.0-2.2) 02/13/25 02/13/25 02/13/25 Range/Units 20:44 17:48 16:29 WBC 7.2 (4.8-10.8) x10^3/uL RBC 5.18 (4.20-5.40) 10^6/uL Hgb 11.1 L (12.0-16.0) g/dL Hct 37.8 (37.0-47.0) % MCV 73.0 L (81.0-99.0) fL MCH 21.4 L (27.0-31.0) pg MCHC 29.4 L (32.0-36.0) g/dL RDW 23.1 H (12.0-15.0) % Plt Count 112 L (130-450) 10^3/uL Neut # (Auto) (1.5-6.6) 10^3/uL Lymph # (Auto) (1.5-3.5) 10^3/uL Rolette # (Auto) (0.0-1.0) 10^3/uL Eos # (Auto) (0.0-0.7) 10^3/uL Baso # (Auto) (0.0-0.1) 10^3/uL Absolute Nucleated RBC x10^3/uL Nucleated RBC % /100WBC Manual Slide Review Platelet Estimate (NORMAL) RBC Morph Micro Appear (NORMAL) Sodium 136 (135-145) mmol/L Potassium 3.5 (3.5-4.5) mmol/L Chloride 97 L (101-111) mmol/L Carbon Dioxide 33 H (21-32) mmol/L Anion Gap 6.0 (6-13) BUN 25 H (6-20) mg/dL Creatinine 0.7 (0.6-1.3) mg/dL Estimated GFR (MDRD) 84 L (>89) Glucose 177 H (74-104) mg/dL POC Whole Bld Glucose 270 142 (70-100) mg/dL Lactic Acid 1.1 (0.5-2.2) mmol/L Calcium 8.2 L (8.5-10.3) mg/dL Magnesium 1.6 L (1.7-2.3) mg/dL Total Bilirubin 0.5 (0.2-1.0) mg/dL AST 69 H (10-42) IU/L ALT 69 H (10-60) IU/L Alkaline Phosphatase 277 H (42-121) IU/L Total Protein 5.7 L (6.4-8.9) g/dL Albumin 2.9 L (3.2-5.5) g/dL Globulin 2.8 (2.1-4.2) g/dL Albumin/Globulin Ratio 1.0 (1.0-2.2) 02/13/25 Range/Units 11:27 WBC (4.8-10.8) x10^3/uL RBC (4.20-5.40) 10^6/uL Hgb (12.0-16.0) g/dL Hct (37.0-47.0) % MCV (81.0-99.0) fL MCH (27.0-31.0) pg MCHC (32.0-36.0) g/dL RDW (12.0-15.0) % Plt Count (130-450) 10^3/uL Neut # (Auto) (1.5-6.6) 10^3/uL Lymph # (Auto) (1.5-3.5) 10^3/uL Rolette # (Auto) (0.0-1.0) 10^3/uL Eos # (Auto) (0.0-0.7) 10^3/uL Baso # (Auto) (0.0-0.1) 10^3/uL Absolute Nucleated RBC x10^3/uL Nucleated RBC % /100WBC Manual Slide Review Platelet Estimate (NORMAL) RBC Morph Micro Appear (NORMAL) Sodium (135-145) mmol/L Potassium (3.5-4.5) mmol/L Chloride (101-111) mmol/L Carbon Dioxide (21-32) mmol/L Anion Gap (6-13) BUN (6-20) mg/dL Creatinine (0.6-1.3) mg/dL Estimated GFR (MDRD) (>89) Glucose (74-104) mg/dL POC Whole Bld Glucose 234 (70-100) mg/dL Lactic Acid (0.5-2.2) mmol/L Calcium (8.5-10.3) mg/dL Magnesium (1.7-2.3) mg/dL Total Bilirubin (0.2-1.0) mg/dL AST (10-42) IU/L ALT (10-60) IU/L Alkaline Phosphatase (42-121) IU/L Total Protein (6.4-8.9) g/dL Albumin (3.2-5.5) g/dL Globulin (2.1-4.2) g/dL Albumin/Globulin Ratio (1.0-2.2) Diagnostic Imaging Diagnostic Imaging Results: positive Final report reviewed Diagnostic Imaging Comments: 02-10-2025 CXR, no comparisons. Moderate perihilar airspace opacities with bilateral interstitial opacities and trace bilateral pleural effusions. Findings are concerning for pulmonary edema. 02-10-2025 CT Head w/o contrast Normal, without mass or hemorrhage. 02-10-2025 CTA pulmonary Normal, without PE or acute process 02-10-2025 CT AP Delayed left nephrogram with a 13 mm nonobstructive stone in the left renal pelvis. Mild stranding of the left ureter. 02-12-2025 CXR Probable improved congestive changes, no new infiltrate or significant pleural effusion seen. 02-13-2025 U/S Abdomen 1. Mild hepatomegaly without focal hepatic pathology. 2. Otherwise unremarkable right upper quadrant ultrasound. Sepsis Event Note (H) Evaluation Current Stage of Sepsis: Sepsis Possible source of Sepsis: positive Genitourinary Sepsis Criteria Sepsis Criteria: Recorded Temperature greater than 38.3C or Less than 36C, Recorded Heart Rate greater than 90 bpm and WBC count greater than 12,000 or less than 4000 Assessment/Plan Problem List (1) Bacteremia due to Gram-negative bacteria: Impression: Intervally improved. Remains afebrile and leukocytosis resolved. She is on Rocephin. Source controlled post stent 02-11. 05/20 blood culture bottles positive for GNB, consistent with as source. UA positive for caban-sensitive Proteus and Klebsiella Little value for follow-up blood cultures and gram-negative bacteremia as long as sensitive to empiric treatment (Bernadette 2017). - Continue Rocephin, 7 days EOT 02/17. - If needed, will transition to Bactrim at discharge. - Med ready 02/14, awaiting SNF transfer (likely [facility]) (2) Sepsis: Qualifiers: Sepsis acute organ dysfunction status: unspecified Sepsis type: sepsis due to unspecified organism Qualified Code(s): A41.9 - Sepsis, unspecified organism (3) Acute pyelonephritis: (4) Renal calculus, left: Impression: Stable, with intermittent dysuria. Still with dull L-sided back pain, but improved with positioning. Voiding appropriately with normal Cr. S/p cystoscopy with stent placement 02-11. Patient presented septic, with tachycardia, leukocytosis, temperature as high as 100.1. CT abdomen/pelvis shows delayed left nephrogram with a 13 mm nonobstructive stone in the left renal pelvis. Mild stranding of the left ureter. UA positive for Proteus, as seen on blood cultures. - Continue Rocephin as above - Tylenol and Randolph PRN for pain - Continue oral hydration (5) Abdominal pain: (6) Abnormal liver enzymes: Impression: Transaminitis resolved, unclear etiology. Slightly elevated AST/ALT 69, 69 with new elevated alk phos 277. Normal Tbili. Initially suspect biliary source given her acute RUQ pain, but U/S was unremarkable and her pain is now improved. Remains afebrile, able to continue to tolerate po without nausea or vomit. Possible hepatic adverse side effect of ceftriaxone. Suspect residual belt-like pain is related to constipation. - Continue Miralax, add Senna to bowel regimen - Encourage mobility as tolerated - Monitor BMP in am. (7) Diabetes mellitus: Impression: Improving. Blood sugar still above goal, but reasonable. Trending in the mid 200s. 76U of short acting insulin used yesterday. 100U used overall. Known hx of T2DM. Patient states she takes 75-86units of Lantus at home in addition to meal time insulin. Dubious fill history however. Also on Jardiance and Ozempic. A1c 11.8%, down from prior ~14%. - Lantus increase to 50U qHS - Lispro 15 U qAC with MDSSI - Goal sugars <180, hypoglycemia protocol - Would continue holding SGLT2i given UTI - Likely resume Ozempic upon discharge. Qualifiers: Diabetes mellitus complication status: without complication Diabetes mellitus custodial insulin use: without long term care social worker use Diabetes mellitus type: t ype 2 Qualified Code(s): E11.9 - Type 2 diabetes mellitus without complications (8) Hypokalemia: Impression: Mild, has been intermittently low 3.2. Requiring replenishment today. - Continue oral repletion - Continue BMP in am. (9) Thrombocytopenia: Impression: Still downtrending, now 92. 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 No clinical evidence of bleeding. Continuing VTE ppx as long as Plt>50K. - Monitor, CBC in am. - Continue Lovenox. (10) Diabetic neuropathy: Qualifiers: Diabetes mellitus complication detail: diabetic mononeuropathy Diabetes mellitus type: type 2 Qualified Code(s): E11.41 - Type 2 diabetes mellitus with diabetic mononeuropathy (11) Chronic, continuous use of opioids: Impression: Patient reports controlled on home Lyrica and scheduled dilaudid. - Continue Lyrica - Tylenol and Randolph PRN as above (12) Acute metabolic encephalopathy: Impression: Resolved. Mental status changes attributed to active infection and hyperglycemia. CT head without acute infarct. - Continue home eszopiclone prn for sleep (13) Subclinical hypothyroidism: Impression: TSH elevated, T4 normal suggestive of subclinical hypothyroidism. No harpreet symptoms of hyper or hypothyroidism. She did have a TSH greater than 10 which is indicative of harpreet hypothyroidism, however difficult to assess in her acutely sick state. Her mental status is now back at baseline. No treatment needed at this time. - Recheck TSH and T4 within the next 6 weeks (14) Physical deconditioning: (15) Decubitus ulcers: Impression: Ulcer present on arrival. Stage I and stage II. Stable. Images documented. Sacral ulcers and L heel eschar. Patient has had acute illness, very poor mobility. Suspect for some time given sacral ulcer. - PT recommending discharge to SNF, working on selection near her home and other providers in [place]. - Wound care - Encourage change positions frequently Qualifiers: Laterality: unspecified laterality Pressure injury location: hip P ressure injury stage: stage 1 Qualified Code(s): L89.201 - Pressure ulcer of unspecified hip, stage 1 (16) GINA (obstructive sleep apnea): Impression: Continue CPAP with supplemental 3L O2. (17) COPD (chronic obstructive pulmonary disease): Impression: Not in active exacerbation. Continue albuterol prn. Saturating 92-95 on RA. - Encourage mobility and IS use. Qualifiers: COPD type: unspecified COPD Qualified Code(s): J44.9 - Chronic obstructive pulmonary disease, unspecified (18) Aortic valve stenosis: Qualifiers: Cardiac valve disease etiology: etiology unspecified Qualified Code(s): I35.0 - Nonrheumatic aortic (valve) stenosis (19) Pacemaker: Impression: Stable. Patient reports failing valve replacement leading to the recent placement of her pacemaker (in October). She is currently taking amiodarone. Sees cardiology, Dr. Kat Corona in [place], She lives in [place]. She is on a home diuretic, unclear etiology. No prior echoes. Will continue diuresis at home dose. - Continue home dose amiodarone 200mg BID - Continue home dose torsemide 40mg (Formulary equivalent is Bumex 2 mg) I spent a total of 42 minutes in the care of this patient today. This time was spent reviewing labs, vital signs, imaging, interviewing and examining the patient, and discussing plan of care with them and their other care providers. Reviewed her blood sugars for the last 24 hours, reviewed her kidney function, CBC, reviewed her imaging from yesterday.
[2025-02-14] MEDS: POTASSIUM CHLORIDE 20 MEQ TABLET PO ONE (17:16)
[2025-02-14] MEDS: INSULIN LISPRO 300 UNIT/3 ML PEN SUBQ SCH (19:53)
[2025-02-14] MEDS: INSULIN GLARGINE-YFGN 300 UNIT/3 ML PEN SUBQ SCH (20:54)
[2025-02-14] MEDS: SENNA 8.6 MG TABLET PO SCH (21:01)
[2025-02-15 08:07] LABS: HCT - HEMATOCRIT 36.2 % (37.0-47.0); HGB - HEMOGLOBIN 10.7 g/dL (12.0-16.0); PLT - PLATELET COUNT 117 10^3/uL (130-450); RED CELL DISTRIBUTION WIDTH 22.6 % (12.0-15.0)
--- NOTE | 2025-02-15 08:07 | PROVIDER PROGRESS NOTE ---
<Statement entered by Sekou Malagon, DO - 02/15/25 15:03> I was present with the medical student on the hospitalist service. I personally verified the history of present illness and performed the physical examination and medical decision making. I have verified the medical students documentation for this encounter and agree with the plan of care below. In addition this is a 65 yo female with a past medical history notable for previous renal calculi, IDDM who presented for pyelonephritis. She has been found to have gram-negative bacteremia with likely source. UA is positive for both Proteus and Klebsiella. She has been treated with ceftriaxone while she is in-house. Can transition to Bactrim upon discharge, but will likely complete 7-day course here at this rate. PT has seen the patient is recommending patient discharge to SNF. SNF search ongoing with facility preferred near [place] where she lives. Appreciate case management. Continues to have some waxing and waning abdominal pain labs are normal, with the exception of elevated alkaline phosphatase. Continuing to trend. Rest of her transaminases or bilirubin are normal. Low risk for ascending cholangitis, cholecystitis. No leukocytosis. She is at risk for acalculous cholecystitis if she is acutely ill, however her imaging was not consistent with this. Continue to monitor. She is graciously having some bowel movements now. Continues to have difficult to control diabetes. Increasing her mealtime insulin again today. Fasting glucose is dropping appropriately overnight. Subjective Prog Note Date Prog Note Date: 02/15/25 Prog Note Time: 08:07 Subjective Pt reports feeling: Improved Subjective: Patient had another episode of cramping R sided abdominal pain this morning, but is now waning. Had her breakfast this morning without nausea or increased pain. Also had a large bowel movement last night, prior to receiving her Senna. Making efforts to sit-up and get out of bed with encouragement of PT. She remains on RA, without new fevers, chills. No dysuria or hematuria. Current Medications Current Medications Current Medications: Current Medications Generic Name Dose Route Start Last Admin Trade Name Freq PRN Reason Stop Dose Admin Acetaminophen 650 mg 02/10/25 18:50 02/15/25 00:25 Acetaminophen 325 Mg Tablet PO 650 mg Q4HR PRN Administration Pain 1 to 4, or Fever Hydrocodone Bitart/Acetaminophen 1 tab 02/11/25 10:21 02/14/25 23:08 Hydrocod/Acetam 5/325 Mg Tablet PO 1 tab Q4HR PRN Administration Moderate Pain (Level 4-6) Al Hydroxide/Mg Hydroxide 30 ml 02/13/25 18:33 02/13/25 20:55 Mag Hydrox/Al Hydrox/Simeth 30 Ml Udc PO 30 ml Q4HR PRN Administration INDIGESTION Albuterol/Ipratropium 3 ml 02/10/25 17:39 Ipratropium/Albuterol 3 Ml Neb INH RTQID PRN Shortness of Air/Wheezing Amiodarone HCl 200 mg 02/11/25 21:00 02/14/25 20:17 Amiodarone 200 Mg Tablet PO 200 mg BID SHELLI Administration Bumetanide 2 mg 02/12/25 09:00 02/14/25 08:05 Bumetanide 1 Mg Tablet PO 2 mg DAILY SHELLI Administration Ceftriaxone Sodium 1 gm 02/11/25 09:00 02/14/25 08:06 Ceftriaxone 1 Gm Vial IVP 1 gm DAILY SHELLI Administration Diclofenac Sodium 2 gm 02/13/25 09:06 02/13/25 13:12 Diclofenac Sodium 1% Gel 50 Gm Tube TOP 2 gm QID PRN Administration Mild Pain (Level 1-3) Duloxetine HCl 30 mg 02/11/25 21:00 02/14/25 20:17 Duloxetine 30 Mg Capsule PO 30 mg QPM SHELLI Administration Duloxetine HCl 60 mg 02/11/25 21:00 02/14/25 20:17 Duloxetine 60 Mg Capsule PO 60 mg QPM SHELLI Administration Enoxaparin Sodium 40 mg 02/12/25 12:00 02/14/25 08:05 Enoxaparin 40 Mg/0.4 Ml Syringe SUBQ 40 mg DAILY SHELLI Administration Insulin Glargine-yfgn 50 unit 02/14/25 21:00 02/14/25 20:54 Insulin Glargine-Yfgn 300 Unit/3 Ml Pen SUBQ 50 unit QPM SHELLI Administration Insulin Human Lispro 2 - 10 unit 02/12/25 08:00 02/14/25 20:54 Insulin Lispro 300 Unit/3 Ml Pen SUBQ 8 unit 0800,1200,1700,2100 SHELLI Administration Protocol Insulin Human Lispro 18 unit 02/14/25 17:00 02/14/25 19:53 Insulin Lispro 300 Unit/3 Ml Pen SUBQ 18 unit TIDWM SHELLI Administration Multivitamins/Minerals 1 tab 02/11/25 17:00 02/14/25 08:05 Multivitamin W/Minerals Tablet PO 1 tab DAILYWM SHELLI Administration Ondansetron HCl 4 mg 02/10/25 18:50 Ondansetron Odt 4 Mg Tablet TL Q6HR PRN Nausea / Vomiting Ondansetron HCl 4 mg 02/10/25 18:50 Ondansetron 4 Mg/2 Ml Vial IVP Q6HR PRN Nausea / Vomiting Letrozole 2.5 Mg 1 each 02/11/25 21:00 02/14/25 20:57 Tablet PO Not Given QPM SHELLI Polyethylene Glycol 17 gm 02/12/25 14:20 02/14/25 08:06 Polyethylene Glycol 3350 17 Gm Packet PO 17 gm DAILY SHELLI Administration Pregabalin 100 mg 02/12/25 19:00 02/15/25 06:23 Pregabalin 100 Mg Capsule PO 100 mg Q6H SHELLI Administration Pregabalin 50 mg 02/12/25 19:00 02/15/25 06:23 Pregabalin 25 Mg Capsule PO 50 mg Q6H SHELLI Administration Senna 8.6 - 17.2 mg 02/14/25 21:00 02/14/25 21:01 Senna 8.6 Mg Tablet PO 8.6 mg DAILY SHELLI Administration Sodium Chloride 10 ml 02/10/25 18:50 Sodium Chloride Flush 0.9% 10 Ml Syringe IVP PRN PRN NEEDED PER PROVIDER ORDERS Sodium Chloride 10 ml 02/11/25 01:00 02/15/25 00:27 Sodium Chloride Flush 0.9% 10 Ml Syringe IVP 10 ml 0100,0900,1700 SHELLI Administration Zinc Oxide 113 gm 02/11/25 21:01 02/13/25 20:49 Cod Liver Oil/Zinc Oxide 113 Gm Tube TOP 1 applic PRN PRN Administration Skin Care Objective Vital Signs/Intake & Output Reviewed Vital Signs: Yes Vital Signs: Vital Signs x48h O2 Flow Rate 02/15/25 00:30 3 02/15/25 00:30 3 Intake & Output: Intake & Output 02/12/25 02/13/25 02/14/25 02/15/25 23:59 23:59 23:59 23:59 Intake Total 3360 / 3360 520 / 520 2260 / 2260 60 / 60 Output Total 2400 / 2400 3300 / 3300 2650 / 2650 900 / 900 Balance 960 / 960 -2780 / -2780 -390 / -390 -840 / -840 Objective Comments/Other: Gen: Well nourished and well developed. Sitting up comfortably in bed, eating breakfast. No acute distress. Heent: Normocephalic/atraumatic, normal appearance of external ears and nose. Cardiac: Regular rate and rhythm. No murmurs appreciated. No visible JVP elevation. Equal radial pulses 2+. No pitting edema of lower extremities Pulm: On RA. Normal respirations without increased effort. Clear to auscultation throughout without wheezes, rales or rhonchi. Abdomen: Large, soft, rounded. Allodynic - patient notes 8/10 pain over the R side. Slight tender to deep palpation over R abdomen w/o rebound tenderness or guarding. No organomegaly. Extremities: Moves all 4 extremities equally. Normal tone. Neuro: A&Ox4. Face symmetric, CN II through XII intact grossly. No focal neurologic deficits. Psych: Good fund of knowledge. Judgment intact. Skin: Decubitus ulcers noted on images - sacral wound and eschar on L heel, Stable per last evaluation 02/12. Lab Results 02/15/25 08:00 02/15/25 08:00 Other Labs: Lab Results x24hrs 02/15/25 02/14/25 02/14/25 Range/Units 07:49 20:41 16:48 POC Whole Bld Glucose 212 304 193 (70-100) mg/dL 02/14/25 Range/Units 11:22 POC Whole Bld Glucose 254 (70-100) mg/dL Diagnostic Imaging Diagnostic Imaging Results: positive Final report reviewed Diagnostic Imaging Comments: 02-10-2025 CXR, no comparisons. Moderate perihilar airspace opacities with bilateral interstitial opacities and trace bilateral pleural effusions. Findings are concerning for pulmonary edema. 02-10-2025 CT Head w/o contrast Normal, without mass or hemorrhage. 02-10-2025 CTA pulmonary Normal, without PE or acute process 02-10-2025 CT AP Delayed left nephrogram with a 13 mm nonobstructive stone in the left renal pelvis. Mild stranding of the left ureter. 02-12-2025 CXR Probable improved congestive changes, no new infiltrate or significant pleural effusion seen. 02-13-2025 U/S Abdomen 1. Mild hepatomegaly without focal hepatic pathology. 2. Otherwise unremarkable right upper quadrant ultrasound. Sepsis Event Note (H) Evaluation Current Stage of Sepsis: Sepsis Possible source of Sepsis: positive Genitourinary Sepsis Criteria Sepsis Criteria: Recorded Temperature greater than 38.3C or Less than 36C, Recorded Heart Rate greater than 90 bpm and WBC count greater than 12,000 or less than 4000 Assessment/Plan Problem List (1) Bacteremia due to Gram-negative bacteria: Impression: Remains afebrile and leukocytosis resolved. She continues on Rocephin without changes. Source controlled post stent 02-11. 05/20 blood culture bottles positive for GNB, consistent with as source. UA positive for caban-sensitive Proteus and Klebsiella Little value for follow-up blood cultures and gram-negative bacteremia as long as sensitive to empiric treatment (Bernadette 2017). - Continue Rocephin, 7 days EOT 02/17. - If needed, will transition to Bactrim at discharge. - Med ready 02/14, awaiting SNF transfer (2) Sepsis: Qualifiers: Sepsis acute organ dysfunction status: unspecified Sepsis type: sepsis due to unspecified organism Qualified Code(s): A41.9 - Sepsis, unspecified organism (3) Acute pyelonephritis: (4) Renal calculus, left: Impression: As above. Voiding appropriately with improved dysuria. Cr remains normal. S/p cystoscopy with stent placement 02-11. Patient presented septic, with tachycardia, leukocytosis, temperature as high as 100.1. CT abdomen/pelvis shows delayed left nephrogram with a 13 mm nonobstructive stone in the left renal pelvis. Mild stranding of the left ureter. UA positive for Proteus, as seen on blood cultures. - Continue Rocephin as above - Tylenol and [place] PRN for pain - Continue oral hydration (5) Abdominal pain: (6) Alkaline phosphatase elevation: Impression: Reassured that her abdominal pain is non-obstructive, non-infectious. Suspect this is related to retained gas, constipation. She is continuing to tolerate po without any nausea, passing flatus and BM. Her Abdominal U/S was unremarkable. Her alk phosphate remains elevated, but liver enzymes and bilirubin is normal. - Continue bowel regimen - Encourage mobility as tolerated - CMP AM (7) Diabetes mellitus: Impression: Improving. Blood sugar still above goal, but reasonable. Trending in the mid 200s. 76U of short acting insulin used yesterday. 100U used overall. Known hx of T2DM. Patient states she takes 75-86units of Lantus at home in addition to meal time insulin. Dubious fill history however. Also on Jardiance and Ozempic. A1c 11.8%, down from prior ~14%. - Continue Lantus 50U qHS - Increase Lispro to 22 U qAC with MDSSI - Goal sugars <180, hypoglycemia protocol - Will continue holding SGLT2i given UTI - Likely resume Ozempic upon discharge. Qualifiers: Diabetes mellitus complication status: without complication Diabetes mellitus custodial insulin use: without technician terminal and repeater use Diabetes mellitus type: t ype 2 Qualified Code(s): E11.9 - Type 2 diabetes mellitus without complications (8) Hypokalemia: Impression: Resolved with repletion. Has been intermittently low down to 3.2, while she was NPO for imaging. 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 This diagnosis does not require modification of heparin. 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 No clinical evidence of bleeding. Continuing VTE ppx as long as Plt>50K. - Continue Lovenox - Monitor, CBC in am (10) Diabetic neuropathy: Qualifiers: Diabetes mellitus complication detail: diabetic mononeuropathy Diabetes mellitus type: type 2 Qualified Code(s): E11.41 - Type 2 diabetes mellitus with diabetic mononeuropathy (11) Chronic, continuous use of opioids: Impression: Patient reports controlled on home Lyrica and regular opiates.. - Continue Lyrica, home doses 4 times daily, confirmed with sure scripts. - Tylenol and [place] PRN as above (12) Acute metabolic encephalopathy: Impression: Resolved. Mental status changes attributed to active infection and hyperglycemia. CT head without acute infarct. - Continue home eszopiclone prn for sleep (13) Subclinical hypothyroidism: Impression: TSH elevated, T4 normal suggestive of subclinical hypothyroidism. No harpreet symptoms of hyper or hypothyroidism. She did have a TSH greater than 10 which is indicative of harpreet hypothyroidism, however difficult to assess in her acutely sick state. Her mental status is now back at baseline. No treatment needed at this time. - Recheck TSH and T4 within the next 6 weeks (14) Physical deconditioning: (15) Decubitus ulcers: Impression: Ulcer present on arrival. Stage I and stage II. Stable. Images documented. Sacral ulcers and L heel eschar. Patient has had acute illness, very poor mobility. Suspect for some time given sacral ulcer. - PT recommending discharge to SNF, working on selection near her home and other providers in [place]. - Wound care - Encourage change positions frequently Qualifiers: Laterality: unspecified laterality Pressure injury location: hip P ressure injury stage: stage 1 Qualified Code(s): L89.201 - Pressure ulcer of unspecified hip, stage 1 (16) GINA (obstructive sleep apnea): Impression: Continue CPAP with supplemental 3L O2 at night and for naps (17) COPD (chronic obstructive pulmonary disease): Impression: Not in active exacerbation. Continue albuterol prn. Saturating 92-95 on RA. - Encourage mobility and IS use. Qualifiers: COPD type: unspecified COPD Qualified Code(s): J44.9 - Chronic obstructive pulmonary disease, unspecified (18) Aortic valve stenosis: Qualifiers: Cardiac valve disease etiology: etiology unspecified Qualified Code(s): I35.0 - Nonrheumatic aortic (valve) stenosis (19) Pacemaker: Impression: Stable. Patient reports failing valve replacement leading to the recent placement of her pacemaker (in October). She is currently taking amiodarone. Sees cardiology, Dr. Kat Corona in [place], She lives in [place]. She is on a home diuretic, unclear etiology. No prior echoes. Will continue diuresis at home dose. - Continue home dose amiodarone 200mg BID - Continue home dose torsemide 40mg (Formulary equivalent is Bumex 2 mg) I spent a total of 36 minutes in the care of this patient today. This time was spent reviewing labs, vital signs, imaging, interviewing and examining the patient, and discussing plan of care with them and their other care providers. Reviewed her platelet count, hemoglobin, potassium, white blood cell count. Reviewed her blood glucoses and adjusted her insulin. Reviewed her alkaline phosphatase and liver enzymes. Discussed her case with nursing, case management, and PT. Working to arrange discharge.
[2025-02-15 08:20] LABS: ALT ALANINE AMINOTRANSFERASE 56.0 IU/L (10-60); AST ASPARTATE AMINOTRANSFERASE 34.0 IU/L (10-42); BUN - BLOOD UREA NITROGEN 22.0 mg/dL (6-20); CARBON DIOXIDE - CO2 36.0 mmol/L (21-32); CREATININE 0.7 mg/dL (0.6-1.3); GFR - MDRD 84.0 (>89)
[2025-02-15] MEDS: INSULIN LISPRO 300 UNIT/3 ML PEN SUBQ SCH (11:38)
[2025-02-15] MEDS: NYSTATIN POWDER 15 GM TOP SCH (21:26)
[2025-02-16 08:16] LABS: HCT - HEMATOCRIT 34.8 % (37.0-47.0); HGB - HEMOGLOBIN 10.4 g/dL (12.0-16.0); RED CELL DISTRIBUTION WIDTH 22.7 % (12.0-15.0)
[2025-02-16 08:34] LABS: ALT ALANINE AMINOTRANSFERASE 82.0 IU/L (10-60); AST ASPARTATE AMINOTRANSFERASE 47.0 IU/L (10-42); BUN - BLOOD UREA NITROGEN 21.0 mg/dL (6-20); CARBON DIOXIDE - CO2 34.0 mmol/L (21-32); CREATININE 0.6 mg/dL (0.6-1.3); GFR - MDRD 101.0 (>89)
--- NOTE | 2025-02-16 13:56 | PROVIDER PROGRESS NOTE ---
<Statement entered by Sekou Malagon, DO - 02/16/25 17:18> I was present with the medical student on the hospitalist service. I personally verified the history of present illness and performed the physical examination and medical decision making. I have verified the medical students documentation for this encounter and agree with the plan of care below. In addition 65-year-old female presenting with pyelonephritis and bacteremia secondary to an obstructive stone. Received stenting on early part of her hospitalization. She is improved appropriately on IV antibiotics for Proteus bacteremia as well as Proteus and Klebsiella bacteriuria. Both bacteria were sensitive to ceftriaxone, and she is completing 7 days of ceftriaxone on 02/17. She remains clinically stable pending disposition to SNF. She has had some intermittent abdominal pain, has improved with bowel movements. Very mild abdominal pain on exam today. Of note she has also had some intermittent episodes of Raynaud's type phenomenon in her hands and toes. No pain associated with them to suggest critical limb ischemia. Finished up ABX tomorrow, she is medically ready for discharge. Appreciate case management who is helping to find a suitable [facility] facility near her home in [place]. She continues to work with PT while she is admitted and is apparently improving. Subjective Prog Note Date Prog Note Date: 02/16/25 Prog Note Time: 08:56 Subjective Pt reports feeling: Improved Subjective: Her abdominal pain is significantly improved, now 2/10. Having regular bowel movements, Miralax is helping her. Remains on RA, without fever or chills. Completing her course of antibiotics tomorrow. Awaiting SNF placement. Was notified by nursing this afternoon that she has a darkening of her toes on one of her feet. She had a similar concern from nursing late in the day yesterday when her fingertips were appearing blue. Denies any pain. They are cool to the touch. She is neurovascularly intact. Current Medications Current Medications Current Medications: Current Medications Generic Name Dose Route Start Last Admin Trade Name Freq PRN Reason Stop Dose Admin Acetaminophen 650 mg 02/10/25 18:50 02/15/25 10:53 Acetaminophen 325 Mg Tablet PO 650 mg Q4HR PRN Administration Pain 1 to 4, or Fever Hydrocodone Bitart/Acetaminophen 1 tab 02/11/25 10:21 02/16/25 06:32 Hydrocod/Acetam 5/325 Mg Tablet PO 1 tab Q4HR PRN Administration Moderate Pain (Level 4-6) Al Hydroxide/Mg Hydroxide 30 ml 02/13/25 18:33 02/13/25 20:55 Mag Hydrox/Al Hydrox/Simeth 30 Ml Udc PO 30 ml Q4HR PRN Administration INDIGESTION Albuterol/Ipratropium 3 ml 02/10/25 17:39 Ipratropium/Albuterol 3 Ml Neb INH RTQID PRN Shortness of Air/Wheezing Amiodarone HCl 200 mg 02/11/25 21:00 02/16/25 09:09 Amiodarone 200 Mg Tablet PO 200 mg BID SHELLI Administration Bumetanide 2 mg 02/12/25 09:00 02/16/25 09:09 Bumetanide 1 Mg Tablet PO 2 mg DAILY SHELLI Administration Ceftriaxone Sodium 1 gm 02/11/25 09:00 02/16/25 09:09 Ceftriaxone 1 Gm Vial IVP 1 gm DAILY SHELLI Administration Diclofenac Sodium 2 gm 02/13/25 09:06 02/13/25 13:12 Diclofenac Sodium 1% Gel 50 Gm Tube TOP 2 gm QID PRN Administration Mild Pain (Level 1-3) Duloxetine HCl 30 mg 02/11/25 21:00 02/15/25 21:26 Duloxetine 30 Mg Capsule PO 30 mg QPM SHELLI Administration Duloxetine HCl 60 mg 02/11/25 21:00 02/15/25 21:25 Duloxetine 60 Mg Capsule PO 60 mg QPM SHELLI Administration Enoxaparin Sodium 40 mg 02/12/25 12:00 02/16/25 09:09 Enoxaparin 40 Mg/0.4 Ml Syringe SUBQ 40 mg DAILY SHELLI Administration Insulin Glargine-yfgn 50 unit 02/14/25 21:00 02/15/25 21:27 Insulin Glargine-Yfgn 300 Unit/3 Ml Pen SUBQ 50 unit QPM SHELLI Administration Insulin Human Lispro 2 - 10 unit 02/12/25 08:00 02/16/25 12:18 Insulin Lispro 300 Unit/3 Ml Pen SUBQ 6 unit 0800,1200,1700,2100 SHELLI Administration Protocol Insulin Human Lispro 22 unit 02/15/25 12:00 02/16/25 12:18 Insulin Lispro 300 Unit/3 Ml Pen SUBQ 22 unit TIDWM SHELLI Administration Multivitamins/Minerals 1 tab 02/11/25 17:00 02/16/25 09:09 Multivitamin W/Minerals Tablet PO 1 tab DAILYWM SHELLI Administration Nystatin 1 applic 02/15/25 21:00 02/16/25 09:09 Nystatin Powder 15 Gm TOP 1 applic BID SHELLI Administration Ondansetron HCl 4 mg 02/10/25 18:50 Ondansetron Odt 4 Mg Tablet TL Q6HR PRN Nausea / Vomiting Ondansetron HCl 4 mg 02/10/25 18:50 Ondansetron 4 Mg/2 Ml Vial IVP Q6HR PRN Nausea / Vomiting Letrozole 2.5 Mg 1 each 02/11/25 21:00 02/15/25 21:27 Tablet PO Not Given QPM SHELLI Polyethylene Glycol 17 gm 02/12/25 14:20 02/16/25 09:08 Polyethylene Glycol 3350 17 Gm Packet PO 17 gm DAILY SHELLI Administration Pregabalin 100 mg 02/12/25 19:00 02/16/25 13:13 Pregabalin 100 Mg Capsule PO 100 mg Q6H SHELLI Administration Pregabalin 50 mg 02/12/25 19:00 02/16/25 13:13 Pregabalin 25 Mg Capsule PO 50 mg Q6H SHELLI Administration Senna 8.6 - 17.2 mg 02/14/25 21:00 02/16/25 09:11 Senna 8.6 Mg Tablet PO Not Given DAILY SHELLI Sodium Chloride 10 ml 02/10/25 18:50 Sodium Chloride Flush 0.9% 10 Ml Syringe IVP PRN PRN NEEDED PER PROVIDER ORDERS Sodium Chloride 10 ml 02/11/25 01:00 02/16/25 09:10 Sodium Chloride Flush 0.9% 10 Ml Syringe IVP 10 ml 0100,0900,1700 SHELLI Administration Zinc Oxide 113 gm 02/11/25 21:01 02/13/25 20:49 Cod Liver Oil/Zinc Oxide 113 Gm Tube TOP 1 applic PRN PRN Administration Skin Care Objective Vital Signs/Intake & Output Reviewed Vital Signs: Yes Vital Signs: Vital Signs x48h Temp Pulse Resp BP Pulse Ox 02/16/25 07:52 36.8 C 87 20 124/58 L 90 L Intake & Output: Intake & Output 10/29/25 10/30/25 10/31/25 11/01/25 23:59 23:59 23:59 23:59 Intake Total 520 / 520 2260 / 2260 660 / 660 240 / 240 Output Total 3300 / 3300 2650 / 2650 2200 / 2200 700 / 700 Balance -2780 / -2780 -390 / -390 -1540 / -1540 -460 / -460 Objective Comments/Other: Gen: Well nourished and well developed. Sitting up comfortably in bed, eating breakfast. No acute distress. Heent: Normocephalic/atraumatic, normal appearance of external ears and nose. Cardiac: Regular rate and rhythm. No murmurs appreciated. No visible JVP elevation. Equal radial pulses 2+. No pitting edema of lower extremities Pulm: On RA. Normal respirations without increased effort. Clear to auscultation throughout without wheezes, rales or rhonchi. Abdomen: Large, soft, rounded. Nontender to palpation without rebound or guarding. No organomegaly. Extremities: Moves all 4 extremities equally. Normal tone. Neuro: A&Ox4. Face symmetric, CN II through XII intact grossly. No focal neurologic deficits. Psych: Good fund of knowledge. Judgment intact. Skin: Decubitus ulcers noted on images - sacral wound and eschar on L heel, Stable per last evaluation 02/12. Lab Results 02/16/25 08:08 02/16/25 08:08 Other Labs: Lab Results x24hrs 02/16/25 02/16/25 02/16/25 Range/Units 11:35 08:08 07:45 WBC 7.3 (4.8-10.8) x10^3/uL RBC 4.80 (4.20-5.40) 10^6/uL Hgb 10.4 L (12.0-16.0) g/dL Hct 34.8 L (37.0-47.0) % MCV 72.5 L (81.0-99.0) fL MCH 21.7 L (27.0-31.0) pg MCHC 29.9 L (32.0-36.0) g/dL RDW 22.7 H (12.0-15.0) % Plt Count (130-450) 10^3/uL Sodium 136 (135-145) mmol/L Potassium 3.7 (3.5-4.5) mmol/L Chloride 96 L (101-111) mmol/L Carbon Dioxide 34 H (21-32) mmol/L Anion Gap 6.0 (6-13) BUN 21 H (6-20) mg/dL Creatinine 0.6 (0.6-1.3) mg/dL Estimated GFR (MDRD) 101 (>89) Glucose 217 H (74-104) mg/dL POC Whole Bld Glucose 250 209 (70-100) mg/dL Calcium 8.2 L (8.5-10.3) mg/dL Total Bilirubin 0.4 (0.2-1.0) mg/dL AST 47 H (10-42) IU/L ALT 82 H (10-60) IU/L Alkaline Phosphatase 395 H (42-121) IU/L Total Protein 5.6 L (6.4-8.9) g/dL Albumin 2.8 L (3.2-5.5) g/dL Globulin 2.8 (2.1-4.2) g/dL Albumin/Globulin Ratio 1.0 (1.0-2.2) 02/15/25 02/15/25 Range/Units 20:29 16:58 WBC (4.8-10.8) x10^3/uL RBC (4.20-5.40) 10^6/uL Hgb (12.0-16.0) g/dL Hct (37.0-47.0) % MCV (81.0-99.0) fL MCH (27.0-31.0) pg MCHC (32.0-36.0) g/dL RDW (12.0-15.0) % Plt Count (130-450) 10^3/uL Sodium (135-145) mmol/L Potassium (3.5-4.5) mmol/L Chloride (101-111) mmol/L Carbon Dioxide (21-32) mmol/L Anion Gap (6-13) BUN (6-20) mg/dL Creatinine (0.6-1.3) mg/dL Estimated GFR (MDRD) (>89) Glucose (74-104) mg/dL POC Whole Bld Glucose 260 274 (70-100) mg/dL Calcium (8.5-10.3) mg/dL Total Bilirubin (0.2-1.0) mg/dL AST (10-42) IU/L ALT (10-60) IU/L Alkaline Phosphatase (42-121) IU/L Total Protein (6.4-8.9) g/dL Albumin (3.2-5.5) g/dL Globulin (2.1-4.2) g/dL Albumin/Globulin Ratio (1.0-2.2) Diagnostic Imaging Diagnostic Imaging Results: positive Final report reviewed Diagnostic Imaging Comments: 02-10-2025 CXR, no comparisons. Moderate perihilar airspace opacities with bilateral interstitial opacities and trace bilateral pleural effusions. Findings are concerning for pulmonary edema. 02-10-2025 CT Head w/o contrast Normal, without mass or hemorrhage. 02-10-2025 CTA pulmonary Normal, without PE or acute process 02-10-2025 CT AP Delayed left nephrogram with a 13 mm nonobstructive stone in the left renal pelvis. Mild stranding of the left ureter. 02-12-2025 CXR Probable improved congestive changes, no new infiltrate or significant pleural effusion seen. 02-13-2025 U/S Abdomen 1. Mild hepatomegaly without focal hepatic pathology. 2. Otherwise unremarkable right upper quadrant ultrasound. Sepsis Event Note (H) Evaluation Current Stage of Sepsis: Sepsis Possible source of Sepsis: positive Genitourinary Sepsis Criteria Sepsis Criteria: Recorded Temperature greater than 38.3C or Less than 36C, Recorded Heart Rate greater than 90 bpm and WBC count greater than 12,000 or less than 4000 Assessment/Plan Problem List (1) Bacteremia due to Gram-negative bacteria: Impression: Stable. Remains afebrile and leukocytosis resolved. Source controlled post stent 02-11. Last dose of IV antibiotics tomorrow. 05/20 blood culture bottles positive for GNB, consistent with as source. UA positive for caban-sensitive Proteus and Klebsiella Little value for follow-up blood cultures and gram-negative bacteremia as long as sensitive to empiric treatment (Bernadette 2017). - Continue Rocephin without changes, 7 days EOT 02/17. - Med ready 02/14, awaiting SNF transfer, If she were to discharge before she receives antibiotics tomorrow, she can go with 1 additional day of Bactrim (2) Sepsis: Qualifiers: Sepsis acute organ dysfunction status: unspecified Sepsis type: sepsis due to unspecified organism Qualified Code(s): A41.9 - Sepsis, unspecified organism (3) Acute pyelonephritis: (4) Renal calculus, left: Impression: As above. Voiding appropriately with improved dysuria. Cr remains normal. S/p cystoscopy with stent placement 02-11. Patient presented septic, with tachycardia, leukocytosis, temperature as high as 100.1. CT abdomen/pelvis shows delayed left nephrogram with a 13 mm nonobstructive stone in the left renal pelvis. Mild stranding of the left ureter. UA positive for Proteus, as seen on blood cultures. - Continue Rocephin as above - Tylenol and [place] PRN for pain - Continue oral hydration (5) Abdominal pain: (6) Alkaline phosphatase elevation: Impression: Improved. Reassured that her abdominal pain is non-obstructive, non-infectious. Suspect this is related to retained gas, constipation. She is continuing to tolerate po without any nausea, passing flatus and BM. Her Abdominal U/S was unremarkable. Her alk phosphate remains elevated with very mild transaminitis. Tbili is normal. - Continue bowel regimen - Encourage mobility as tolerated - CMP AM (7) Diabetes mellitus: Impression: Improving. Blood sugar still above goal, but reasonable. Trending in the low 200s. Receiving 26-28units mealtime. No changes today, as her diet has been less predictable than days past. She has been eating less during some meals. Continuing POC glucose checks. Known hx of T2DM. Patient states she takes 75-86units of Lantus at home in addition to meal time insulin. Dubious fill history however. Also on Jardiance and Ozempic. A1c 11.8%, down from prior ~14%. - Continue Lantus 50U qHS - Continue Lispro to 22 U qAC with MDSSI - Goal sugars <180, hypoglycemia protocol - Will continue holding SGLT2i given UTI - Likely resume Ozempic upon discharge. Qualifiers: Diabetes mellitus complication status: without complication Diabetes mellitus operations specialists insulin use: without chcf use Diabetes mellitus type: t ype 2 Qualified Code(s): E11.9 - Type 2 diabetes mellitus without complications (8) Hypokalemia: Impression: Resolved with repletion. K today was 3.7. Has been intermittently low down to 3.2, while she was NPO for imaging. 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 This diagnosis does not require modification of heparin. 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 No clinical evidence of bleeding. Continuing VTE ppx as long as Plt>50K. - Continue Lovenox - Monitor, CBC in am (10) Diabetic neuropathy: Qualifiers: Diabetes mellitus complication detail: diabetic mononeuropathy Diabetes mellitus type: type 2 Qualified Code(s): E11.41 - Type 2 diabetes mellitus with diabetic mononeuropathy (11) Chronic, continuous use of opioids: Impression: Patient reports controlled on home Lyrica and regular opiates. - Continue Lyrica, home doses 4 times daily, confirmed with sure scripts. - Tylenol and [place] PRN as above (12) Acute metabolic encephalopathy: Impression: Resolved. Mental status changes attributed to active infection and hyperglycemia. CT head without acute infarct. - Continue home eszopiclone prn for sleep (13) Subclinical hypothyroidism: Impression: TSH elevated, T4 normal suggestive of subclinical hypothyroidism. No harpreet symptoms of hyper or hypothyroidism. She did have a TSH greater than 10 which is indicative of harpreet hypothyroidism, however difficult to assess in her acutely sick state. Her mental status is now back at baseline. No treatment needed at this time. - Recheck TSH and T4 within the next 6 weeks. To wit, sometime in early March (14) Physical deconditioning: (15) Decubitus ulcers: Impression: Ulcer present on arrival. Stage I and stage II. Stable. Images documented. Sacral ulcers and L heel eschar. Patient has had acute illness, very poor mobility. Suspect for some time given sacral ulcer. - PT recommending discharge to SNF, working on selection near her home and other providers in [place]. - Wound care - Encourage change positions frequently Qualifiers: Laterality: unspecified laterality Pressure injury location: hip P ressure injury stage: stage 1 Qualified Code(s): L89.201 - Pressure ulcer of unspecified hip, stage 1 (16) GINA (obstructive sleep apnea): Impression: Continue CPAP with supplemental 3L O2 at night and for naps (17) COPD (chronic obstructive pulmonary disease): Impression: Not in active exacerbation. Continue albuterol prn. Saturating 92-95 on RA. - Encourage mobility and IS use. Qualifiers: COPD type: unspecified COPD Qualified Code(s): J44.9 - Chronic obstructive pulmonary disease, unspecified (18) Raynaud phenomenon without gangrene: Impression: Patient has been intermittently exhibiting a Raynaud's phenomenon during this hospitalization. It is unclear what is precipitating this. She has not experienced any pain from this. It is merely physical exam findings. It has vacillated between her hands and her feet. Related darkening and a cooling to touch. - Recommend outpatient follow-up, consideration starting on CCB. (19) Aortic valve stenosis: Qualifiers: Cardiac valve disease etiology: etiology unspecified Qualified Code(s): I35.0 - Nonrheumatic aortic (valve) stenosis (20) Pacemaker: Impression: Stable. Patient reports failing valve replacement leading to the recent placement of her pacemaker (in October). She is currently taking amiodarone. Sees cardiology, Dr. Kat Corona in [place], She lives in [place]. She is on a home diuretic, unclear etiology. No prior echoes. Will continue diuresis at home dose. - Continue home dose amiodarone 200mg BID - Continue home dose torsemide 40mg (Formulary equivalent is Bumex 2 mg) I spent a total of 40 minutes in the care of this patient today. This time was spent reviewing labs, vital signs, imaging, interviewing and examining the patient, and discussing plan of care with them and their other care providers. Reviewed her platelet count, hemoglobin, potassium, white blood cell count. Reviewed her blood glucoses and adjusted her insulin. Reviewed her alkaline phosphatase and liver enzymes. Discussed her case with nursing, case management, and PT. Working to arrange discharge.
--- NOTE | 2025-02-17 09:35 | PROVIDER PROGRESS NOTE ---
<Statement entered by Sekou Malagon, DO - 02/17/25 14:52> I was present with the medical student on the hospitalist service. I personally verified the history of present illness and performed the physical examination and medical decision making. I have verified the medical students documentation for this encounter and agree with the plan of care below. In addition 65-year-old lady who came in with bacteremia and pyelonephritis. She received stenting on hospital day 1. She will need follow-up with urology at some point in the future for definitive stone management, but she is improving appropriately otherwise. She completed 7 days of antibiotics today for Proteus and Klebsiella infections, both were present in her urine. Proteus was present in her blood. Sensitive to ceftriaxone which she completed parenteral therapy today. Her course has been complicated by a diabetes, but her blood sugars are now stabilized. Likely discharge on current doses of long- acting and prandial insulin without any additional sliding scale insulin. She will resume her Ozempic and continue monitoring her blood sugar when she leaves. I am disinclined to restart her on her SGLT2i given recent complicated urinary tract infection. She will need follow-up with urology down near her home, I will reach out to her primary care office on Tuesday to see if they can help facilitate this. Otherwise she is doing well today, her biggest complaint is gas pain which she got some simethicone prescribed today. Subjective Prog Note Date Prog Note Date: 02/17/25 Prog Note Time: 09:38 Subjective Pt reports feeling: Improved Subjective: Patient is doing well without dysuria, fever or chills. Current Medications Current Medications Current Medications: Current Medications Generic Name Dose Route Start Last Admin Trade Name Freq PRN Reason Stop Dose Admin Acetaminophen 650 mg 02/10/25 18:50 02/17/25 01:14 PDT Acetaminophen 325 Mg Tablet PO 650 mg Q4HR PRN Administration Pain 1 to 4, or Fever Hydrocodone Bitart/Acetaminophen 1 tab 02/11/25 10:21 02/17/25 08:39 Hydrocod/Acetam 5/325 Mg Tablet PO 1 tab Q4HR PRN Administration Moderate Pain (Level 4-6) Al Hydroxide/Mg Hydroxide 30 ml 02/13/25 18:33 02/16/25 23:49 Mag Hydrox/Al Hydrox/Simeth 30 Ml Udc PO 30 ml Q4HR PRN Administration INDIGESTION Albuterol/Ipratropium 3 ml 02/10/25 17:39 Ipratropium/Albuterol 3 Ml Neb INH RTQID PRN Shortness of Air/Wheezing Amiodarone HCl 200 mg 02/11/25 21:00 02/17/25 08:23 Amiodarone 200 Mg Tablet PO 200 mg BID SHELLI Administration Bumetanide 2 mg 02/12/25 09:00 02/17/25 08:23 Bumetanide 1 Mg Tablet PO 2 mg DAILY SHELLI Administration Ceftriaxone Sodium 1 gm 02/11/25 09:00 02/17/25 08:24 Ceftriaxone 1 Gm Vial IVP 1 gm DAILY SHELLI Administration Diclofenac Sodium 2 gm 02/13/25 09:06 02/13/25 13:12 Diclofenac Sodium 1% Gel 50 Gm Tube TOP 2 gm QID PRN Administration Mild Pain (Level 1-3) Duloxetine HCl 30 mg 02/11/25 21:00 02/16/25 20:58 Duloxetine 30 Mg Capsule PO 30 mg QPM SHELLI Administration Duloxetine HCl 60 mg 02/11/25 21:00 02/16/25 20:58 Duloxetine 60 Mg Capsule PO 60 mg QPM SHELLI Administration Enoxaparin Sodium 40 mg 02/12/25 12:00 02/17/25 08:24 Enoxaparin 40 Mg/0.4 Ml Syringe SUBQ 40 mg DAILY SHELLI Administration Insulin Glargine-yfgn 50 unit 02/14/25 21:00 02/16/25 20:58 Insulin Glargine-Yfgn 300 Unit/3 Ml Pen SUBQ 50 unit QPM SHELLI Administration Insulin Human Lispro 2 - 10 unit 02/12/25 08:00 02/17/25 08:32 Insulin Lispro 300 Unit/3 Ml Pen SUBQ Not Given 0800,1200,1700,2100 [facility] Protocol Insulin Human Lispro 22 unit 02/15/25 12:00 02/17/25 08:32 Insulin Lispro 300 Unit/3 Ml Pen SUBQ 22 unit TIDWM SHELLI Administration Multivitamins/Minerals 1 tab 02/11/25 17:00 02/17/25 08:24 Multivitamin W/Minerals Tablet PO 1 tab DAILYWM SHELLI Administration Nystatin 1 applic 02/15/25 21:00 02/17/25 08:23 Nystatin Powder 15 Gm TOP 1 applic BID SHELLI Administration Ondansetron HCl 4 mg 02/10/25 18:50 Ondansetron Odt 4 Mg Tablet TL Q6HR PRN Nausea / Vomiting Ondansetron HCl 4 mg 02/10/25 18:50 Ondansetron 4 Mg/2 Ml Vial IVP Q6HR PRN Nausea / Vomiting Letrozole 2.5 Mg 1 each 02/11/25 21:00 02/16/25 21:15 Tablet PO Not Given QPM SHELLI Polyethylene Glycol 17 gm 02/12/25 14:20 02/17/25 08:24 Polyethylene Glycol 3350 17 Gm Packet PO 17 gm DAILY SHELLI Administration Pregabalin 100 mg 02/12/25 19:00 02/17/25 06:56 Pregabalin 100 Mg Capsule PO 100 mg Q6H SHELLI Administration Pregabalin 50 mg 02/12/25 19:00 02/17/25 06:56 Pregabalin 25 Mg Capsule PO 50 mg Q6H SHELLI Administration Senna 8.6 - 17.2 mg 02/14/25 21:00 02/17/25 08:23 Senna 8.6 Mg Tablet PO 8.6 mg DAILY SHELLI Administration Sodium Chloride 10 ml 02/10/25 18:50 Sodium Chloride Flush 0.9% 10 Ml Syringe IVP PRN PRN NEEDED PER PROVIDER ORDERS Sodium Chloride 10 ml 02/11/25 01:00 02/17/25 08:24 Sodium Chloride Flush 0.9% 10 Ml Syringe IVP 10 ml 0100,0900,1700 SHELLI Administration Zinc Oxide 113 gm 02/11/25 21:01 02/13/25 20:49 Cod Liver Oil/Zinc Oxide 113 Gm Tube TOP 1 applic PRN PRN Administration Skin Care Objective Vital Signs/Intake & Output Reviewed Vital Signs: Yes Vital Signs: Vital Signs x48h Temp Pulse Resp BP Pulse Ox 02/17/25 07:47 36.5 C 84 20 141/90 H 92 Intake & Output: Intake & Output 02/14/25 02/15/25 02/16/25 02/17/25 23:59 23:59 23:59 22:59 Intake Total 2260 / 2260 660 / 660 1737 / 1737 520 / 520 Output Total 2650 / 2650 2200 / 2200 2400 / 2400 900 / 900 Balance -390 / -390 -1540 / -1540 -663 / -663 -380 / -380 Objective Comments/Other: Gen: Well nourished and well developed. Sitting up comfortably in bed, eating breakfast. No acute distress. Heent: Normocephalic/atraumatic, normal appearance of external ears and nose. Cardiac: Regular rate and rhythm. No murmurs appreciated. No visible JVP elevation. Equal radial pulses 2+. No pitting edema of lower extremities Pulm: On RA. Normal respirations without increased effort. Clear to auscultation throughout without wheezes, rales or rhonchi. Abdomen: Large, soft, rounded. Nontender to palpation without rebound or guarding. No organomegaly. Extremities: Moves all 4 extremities equally. Normal tone. Neuro: A&Ox4. Face symmetric, CN II through XII intact grossly. No focal neurologic deficits. Psych: Good fund of knowledge. Judgment intact. Skin: Decubitus ulcers noted on images - sacral wound and eschar on L heel, Stable per last evaluation 02/12. Lab Results 02/16/25 08:08 02/16/25 08:08 Other Labs: Lab Results x24hrs 02/17/25 02/16/25 02/16/25 Range/Units 07:43 20:38 16:50 POC Whole Bld Glucose 130 151 186 (70-100) mg/dL 02/16/25 Range/Units 11:35 POC Whole Bld Glucose 250 (70-100) mg/dL Diagnostic Imaging Diagnostic Imaging Results: positive Final report reviewed Diagnostic Imaging Comments: 02-10-2025 CXR, no comparisons. Moderate perihilar airspace opacities with bilateral interstitial opacities and trace bilateral pleural effusions. Findings are concerning for pulmonary edema. 02-10-2025 CT Head w/o contrast Normal, without mass or hemorrhage. 02-10-2025 CTA pulmonary Normal, without PE or acute process 02-10-2025 CT AP Delayed left nephrogram with a 13 mm nonobstructive stone in the left renal pelvis. Mild stranding of the left ureter. 02-12-2025 CXR Probable improved congestive changes, no new infiltrate or significant pleural effusion seen. 02-13-2025 U/S Abdomen 1. Mild hepatomegaly without focal hepatic pathology. 2. Otherwise unremarkable right upper quadrant ultrasound. Sepsis Event Note (H) Evaluation Current Stage of Sepsis: Sepsis Possible source of Sepsis: positive Genitourinary Sepsis Criteria Sepsis Criteria: Recorded Temperature greater than 38.3C or Less than 36C, Recorded Heart Rate greater than 90 bpm and WBC count greater than 12,000 or less than 4000 Assessment/Plan Problem List (1) Bacteremia due to Gram-negative bacteria: Impression: Completed 7-day IV ceftriaxone today. Source controlled post stent 02-11. 2/2 blood culture bottles positive for GNB, consistent with as source. UA positive for caban-sensitive Proteus and Klebsiella. Little value for follow-up blood cultures and gram-negative bacteremia as long as sensitive to empiric treatment (Bernadette 2017). - Has been med ready 02/14, awaiting SNF transfer (2) Sepsis: Qualifiers: Sepsis acute organ dysfunction status: unspecified Sepsis type: sepsis due to unspecified organism Qualified Code(s): A41.9 - Sepsis, unspecified organism (3) Acute pyelonephritis: (4) Renal calculus, left: Impression: As above. Remains afebrile with resolved leukocytosis. Voiding appropriately with improved dysuria. Cr remains normal. S/p cystoscopy with stent placement 02-11. Patient presented septic, with tachycardia, leukocytosis, temperature as high as 100.1. CT abdomen/pelvis shows delayed left nephrogram with a 13 mm nonobstructive stone in the left renal pelvis. Mild stranding of the left ureter. UA positive for Proteus, as seen on blood cultures. - Tylenol and [place] PRN for pain - Continue oral hydration (5) Abdominal pain: (6) Alkaline phosphatase elevation: Impression: Improved. Reassured that her abdominal pain is non-obstructive, non-infectious. Suspect this is related to retained gas, constipation. She is continuing to tolerate po without any nausea, passing flatus and BM. Her Abdominal U/S was unremarkable. Her alk phosphate remains elevated with very mild transaminitis. Tbili is normal. - Continue bowel regimen - Encourage mobility as tolerated (7) Diabetes mellitus: Impression: Improved. Glucose <180 today. 150->130 overnight. Known hx of T2DM. Patient states she takes 75-86units of Lantus at home in addition to meal time insulin. Also on Jardiance and Ozempic. A1c 11.8%, down from prior ~14%. - Continue Lantus 50U qHS - Continue Lispro to 22 U qAC with MDSSI - Goal sugars <180, hypoglycemia protocol - Likely resume Ozempic upon discharge. - Do not resume SGLT2i at this time given complicated urinary tract infection Qualifiers: Diabetes mellitus complication status: without complication Diabetes mellitus chcf insulin use: without termite exterminator helper use Diabetes mellitus type: t ype 2 Qualified Code(s): E11.9 - Type 2 diabetes mellitus without complications (8) Hypokalemia: Impression: Resolved with repletion. K today was 3.7. Has been intermittently low down to 3.2, while she was NPO for imaging. 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 This diagnosis does not require modification of heparin. 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 No clinical evidence of bleeding. Continuing VTE ppx as long as Plt>50K. - Continue Lovenox (10) Diabetic neuropathy: Qualifiers: Diabetes mellitus complication detail: diabetic mononeuropathy Diabetes mellitus type: type 2 Qualified Code(s): E11.41 - Type 2 diabetes mellitus with diabetic mononeuropathy (11) Chronic, continuous use of opioids: Impression: Patient reports controlled on home Lyrica and regular opiates. - Continue Lyrica, home doses 4 times daily, confirmed with sure scripts. - Tylenol and [place] PRN as above (12) Acute metabolic encephalopathy: Impression: Resolved. Mental status changes attributed to active infection and hyperglycemia. CT head without acute infarct. - Continue home eszopiclone prn for sleep (13) Subclinical hypothyroidism: Impression: TSH elevated, T4 normal suggestive of subclinical hypothyroidism. No harpreet symptoms of hyper or hypothyroidism. She did have a TSH greater than 10 which is indicative of harpreet hypothyroidism, however difficult to assess in her acutely sick state. Her mental status is now back at baseline. No treatment needed at this time. - Recheck TSH and T4 within the next 6 weeks. To wit, sometime in early March (14) Physical deconditioning: (15) Decubitus ulcers: Impression: Ulcer present on arrival. Stage I and stage II. Stable. Images documented. Sacral ulcers and L heel eschar. Patient has had acute illness, very poor mobility. Suspect for some time given sacral ulcer. - PT recommending discharge to SNF, working on selection near her home and other providers in [place]. - Wound care: Every 24-48 hour dressing changes, keep the wound clean and dry. Keep frequent offloading. - Encourage change positions frequently Qualifiers: Laterality: unspecified laterality Pressure injury location: hip P ressure injury stage: stage 1 Qualified Code(s): L89.201 - Pressure ulcer of unspecified hip, stage 1 (16) GINA (obstructive sleep apnea): Impression: Continue CPAP with supplemental 3L O2 at night and for naps (17) COPD (chronic obstructive pulmonary disease): Impression: Not in active exacerbation. Continue albuterol prn. Saturating 92-95 on RA. - Encourage mobility and IS use. Qualifiers: COPD type: unspecified COPD Qualified Code(s): J44.9 - Chronic obstructive pulmonary disease, unspecified (18) Raynaud phenomenon without gangrene: Impression: Patient has been intermittently exhibiting a Raynaud's phenomenon during this hospitalization. It is unclear what is precipitating this. She has not experienced any pain from this. It is merely physical exam findings. It has vacillated between her hands and her feet. Related darkening and a cooling to touch. - Recommend outpatient follow-up, consideration starting on CCB. (19) Aortic valve stenosis: Qualifiers: Cardiac valve disease etiology: etiology unspecified Qualified Code(s): I35.0 - Nonrheumatic aortic (valve) stenosis (20) Pacemaker: Impression: Stable. Patient reports failing valve replacement leading to the recent placement of her pacemaker (in October). She is currently taking amiodarone. Sees cardiology, Dr. Kat Corona in [place], She lives in [place]. She is on a home diuretic, unclear etiology. No prior echoes. Will continue diuresis at home dose. - Continue home dose amiodarone 200mg BID - Continue home dose torsemide 40mg (Formulary equivalent is Bumex 2 mg) - Is supposed to have reinterrogation of her pacemaker in late February, this may need to be rescheduled. Patient is working on this. I spent a total of 47 minutes in the care of this patient today. This time was spent reviewing labs, vital signs, imaging, interviewing and examining the patient, and discussing plan of care with them and their other care providers.
[2025-02-17] MEDS: SIMETHICONE CHEW 80 MG TABLET PO PRN (16:57)
[2025-02-17] MEDS: INSULIN LISPRO 300 UNIT/3 ML PEN SUBQ ONE (18:03)
[2025-02-18] MEDS: INSULIN LISPRO 300 UNIT/3 ML PEN SUBQ SCH (08:34)
--- NOTE | 2025-02-18 11:18 | Discharge Summary ---
"Discharge Summary Admit Date: 02/10/25 Discharge Date: 02/20/25 Discharging Provider: Dr. Ofe Rodriges Primary Care Provider: Dr. Danyelle Garcia Code Status: Attempt Resuscitation Discharge Facility Name: [facility] DIAGNOSES Discharge Diagnoses with Status of Each Condition: #Sepsis #Gram negative bacteremia #Acute pyelonephritis #L renal calculus Completed 7-days of IV ceftriaxone s/p cystoscopy with stent placement 02/11. Urine cultures with susceptibilities revealed caban-sensitive Proteus and Klebsiella. Needs close follow up with Urology. #Acute metabolic encephalopathy Attributed to active infection and hyperglycemia. Resolved with treatment as above. #Abdominal pain #Alkaline phosphatase elevation Initially endorsed RUQ pain but improved with regular bowel movements and passing of gas. U/S abdomen was unremarkable. She continued to tolerate PO without any nausea throughout course of stay. Her isolated alkaline phosphate elevation unlikely d/t hepatobiliary cause. #T2DM, A1C 11.8% - Resume 50U long acting and 15-25U short acting before meals. 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 Patient is a poor historian as she is confused, so majority of history is taken from patient's daughter as well as her friend who is listed as her emergency contact. Patient lives in [place], and is visiting her daughter who lives in [place]. Her daughter visited her yesterday, and she was her normal self. Today, she tried to get a hold of her mother multiple times and was unable to reach her. She asked the hotel staff to go check on her mom, and she was found down, confused, disheveled, soiled in urine and asking for help. Patient herself states that she does not recall what happened. She endorses fevers, chills, dysuria. She feels disoriented and confused. I also spoke with her emergency contactshe states that she is an insulin- dependent diabetic. Her glucometer stopped working a few days ago. She worries that she has not been taking care of this. She also takes Jardiance alongside insulin for her diabetes. She also has a history of aortic stenosis and recently had a TAVR. She had a pacemaker placed after the fact, and has been doing well otherwise. She also has COPD but does not use home oxygen (she did previously, but after the valve replacement, has not required it). Medications are unclear. She has had no known drug allergies. Surgical history includes TAVR. She denies any alcohol, tobacco, recreational drug use. She usually is independent of ADLs, but does get dyspneic with exertion, per her friend. CONSULTS | PROCEDURES Consultations: Urology, PT/OT Procedures: CXR 02/10 Chest CTA 02/10 CT AP 02/10 Cystoscopy with stent placement 02/11 CXR 02/12 U/S Abdomen 02/13 CXR 02/18 HOSPITAL COURSE Hospital Course: Patient is a 65-year-old female with a history of uncontrolled insulin-dependent diabetes mellitus, aortic stenosis s/p TAVR who presented with altered mental status. She was found to be septic. CT abdomen/pelvis showed a 13 mm nonobstructive stone in the left renal pelvis, as well as stranding of the left ureter with concerns for pyelonephritis. Blood cultures were 2/2 for Proteus, which were pansensitive. She was started on Rocephin, and completed a 7-day course of IV antibiotics. Her mentation improved as her sepsis improved. Her course was complicated by worsening debility, as well as weakness while here. Physical therapy evaluated the patient, and recommended SNF placement. He was discharged home in stable condition and advised to follow-up closely with her primary care provider, as well as urology for stent removal. ALLERGIES Allergies Allergy/AdvReac Type Severity Reaction Status Date / Time No Known Drug Allergies Allergy Verified 02/10/25 14:45 MEDICATIONS Ambulatory Orders Medication Instructions Recorded Confirmed acetaminophen 500 mg capsule 500 mg PO Q6H PRN pain 02/11/25 amiodarone 200 mg tablet 200 mg PO BID 02/11/2502/11 clotrimazole-betamethasone 1 1 applic topical BID 01/1702/11/25 %-0.05 % topical cream duloxetine 30 mg capsule,delayed 30 mg PO QPM 02/11/25 02/11/25 release duloxetine 60 mg capsule,delayed 60 mg PO QPM 02/11/25 02/11/25 release empagliflozin 25 mg tablet 25 mg PO DAILYWM 02/11/25 1 (Jardiance) eszopiclone 2 mg tablet 2 mg PO QPM PRN sleep 02/11/25 hydrocodone 5 mg-acetaminophen 325 1 tab PO Q6H PRN pa in 02/11/25 02/11/25 mg tablet insulin lispro 100 unit/mL 2 - 10 sliding scale dose s ubcut 02/11/25 02/11/25 subcutaneous pen (Humalog KwikPen QID (U-100) Insulin) letrozole 2.5 mg tablet 2.5 mg PO QPM 02/11/2502/11 lisinopril 40 mg tablet 40 mg PO QPM 02/11/25 Held on 02/20/25. Instructions: Resume on 03/06/25. Recheck blood pressure and BMP in outpatient in 2 weeks with PCP and resume if appropriate. pregabalin 150 mg capsule 150 mg PO QID 02/11/2502/11 semaglutide 0.25 mg or 0.5 mg (2 0.5 mg subcut OAW 02/11/25 mg/3 mL) subcutaneous pen injector (Ozempic) topiramate 25 mg tablet 25 mg PO BID 02/11/25 torsemide 20 mg tablet 40 mg PO DAILY 02/11/2501/17 insulin glargine-yfgn 100 unit/mL 50 unit (0.5 mL) sub cut QPM #15 mL 02/20/25 (3 mL) subcutaneous pen insulin lispro 100 unit/mL 15 unit (0.15 mL) subcut TI DWM #15 02/20/25 subcutaneous pen (Humalog KwikPen mL (U-100) Insulin) PHYSICAL EXAM AT DISCHARGE Vital Signs: Vital Signs x48h Temp Pulse Resp BP Pulse Ox 02/20/25 09:51 97.7 F 75 16 112/67 96 Physical Exam Other/Comments: Gen: Well nourished and well developed. Sitting up and eating in bed. No acute distress. Heent: Normocephalic/atraumatic, normal appearance of external ears and nose. Cardiac: Regular rate and rhythm. No murmurs appreciated. No visible JVP elevation. Equal radial pulses 2+. No pitting edema of lower extremities Pulm: On RA. Normal respirations without increased effort. Clear to auscultation throughout without wheezes, rales or rhonchi. Abdomen: Large, soft, rounded. Nontender to palpation without rebound or guarding. No organomegaly. Extremities: Moves all 4 extremities equally. Normal tone. Neuro: A&Ox4. Face symmetric, CN II through XII intact grossly. No focal neurologic deficits. Psych: Good fund of knowledge. Judgment intact. Skin: Decubitus ulcers noted on images - sacral wound and eschar on L heel, Stable per last evaluation 02/12. LABS 02/18/25 15:28 02/18/25 15:28 DIAGNOSTIC IMAGING Diagnostic Imaging Results: Final report reviewed Diagnostic Imaging Results Comments: 02-10-2025 CXR, no comparisons. Moderate perihilar airspace opacities with bilateral interstitial opacities and trace bilateral pleural effusions. Findings are concerning for pulmonary edema. 02-10-2025 CT Head w/o contrast Normal, without mass or hemorrhage. 02-10-2025 CTA pulmonary Normal, without PE or acute process 02-10-2025 CT AP Delayed left nephrogram with a 13 mm nonobstructive stone in the left renal pelvis. Mild stranding of the left ureter. 02-12-2025 CXR Probable improved congestive changes, no new infiltrate or significant pleural effusion seen. 02-13-2025 U/S Abdomen 1. Mild hepatomegaly without focal hepatic pathology. 2. Otherwise unremarkable right upper quadrant ultrasound. SEPSIS Current Stage of Sepsis: Sepsis Possible source of Sepsis: Genitourinary Sepsis Criteria: Recorded Temperature greater than 38.3C or Less than 36C, Recorded Heart Rate greater than 90 bpm and WBC count greater than 12,000 or less than 4000 FOLLOW UP Follow Up: PCP for diabetes management, repeat labs (alkaline phosphatase, TSH, T4) Urology in 3 months for ureteral stent removal Cardiology for reevaluation of pacemaker TIME SPENT Time Spent in Discharge (Minutes): 35 Discharge Plan Discharge Patient Disposition: 03 DC/Xfer Prescriptions: New insulin glargine-yfgn 100 unit/mL (3 mL) Insulin Pen 50 unit subcut QPM Qty: 15 0RF insulin lispro [Humalog KwikPen Insulin] 100 unit/mL Insulin Pen 15 unit subcut TIDWM Qty: 15 0RF Continued torsemide 20 mg tablet 40 mg PO DAILY amiodarone 200 mg tablet 200 mg PO BID hydrocodone-acetaminophen 5-325 mg tablet 1 tab PO Q6H PRN (Reason: pain) topiramate 25 mg tablet 25 mg PO BID duloxetine 30 mg capsule,delayed release(DR/EC) 30 mg PO QPM Patient Comments: total dose 90mg duloxetine 60 mg capsule,delayed release(DR/EC) 60 mg PO QPM Rx Instructions: total dose 90mg eszopiclone 2 mg tablet 2 mg PO QPM PRN (Reason: sleep) pregabalin 150 mg capsule 150 mg PO QID Jardiance 25 mg tablet 25 mg PO DAILYWM Patient Comments: QAM with breakfast Ozempic 0.25 mg or 0.5 mg (2 mg/3 mL) pen injector 0.5 mg SUBCUT OAW Patient Comments: Tuesday acetaminophen 500 mg capsule 500 mg PO Q6H PRN (Reason: pain) insulin lispro [Humalog KwikPen Insulin] 100 unit/mL insulin pen 2 - 10 sliding scale dose SUBCUT QID Rx Instructions: max of 40 units clotrimazole-betamethasone 1-0.05 % cream 1 applic TOPICAL BID letrozole 2.5 mg tablet 2.5 mg PO QPM Held lisinopril 40 mg tablet 40 mg PO QPM Hold Instructions: Resume on 03/06/25. Recheck blood pressure and BMP in outpatient in 2 weeks with PCP and resume if appropriate. Activity Restrictions: Activity as Tolerated Activity Restrictions/Additional Instructions: DIET - You may resume your normal diet if there is no nausea or vomiting. You may want to avoid spicy, greasy, or heavy foods today to minimize gas. - If nausea or vomiting occurs, don't eat or drink anything for one hour. Then start drinking small amounts of clear liquids. Later, add crackers, gradually building up to your usual diet. ACTIVITY INSTRUCTIONS * you may resume normal activity with stent in place DISCHARGE INSTRUCTIONS * You have a ureteral stent in place. This will not get rid of your kidney stone. You must follow-up with the urologist within the next 3 months for stone removal and stent removal. Your stent is not a permanent stent this is your responsibility to follow-up on you can follow-up with Dr. Tolliver by calling his office or any other urologist of your choice closer to home. MEDICATIONS * ANESTHESIA PRECAUTIONS Anesthesia and medications given during surgery remain in your body up to 24 hours. This may slow reaction time and/or decrease coordination. FOR THE NEXT 24 HOURS: - Have a responsible person with you - Avoid any activity that requires you to be alert and coordinated - DO NOT DRIVE a motor vehicle for 24 hours or as long as you are taking opoid pain medication - Do not drink alcoholic beverages - Do not smoke unattended Patient Date Escort Date RN Date Diet: Diabetic Health Concerns: You came in because you were confused, had a fever, chills, as well as some suprapubic pain. You are found to have a kidney infection, which we call acute pyelonephritis. You also had a large left kidney stone. For this, stent was placed. The bacterial infection had spread to your blood. For this, you required 7 days of IV antibiotics, which you received while you are here. You are doing much better today. Please follow-up with urology in the next 3 months. I have put their follow-up information in your discharge paperwork. While you have been here, you have had significant weakness. As such, you are going to a rehab facility to get stronger before you go home. Glad you have a lot of good support around you. Best of luck. Thank you for letting us take care of you. Print Language: Cambodian Patient Instructions: Surg Dc, Having a Ureteral Stent Stand Alone Forms: SNF Discharge, PCP List Follow-up Care: Cooper Tolliver MD [Provider Admit Priv/Credential, Urology] Report called to and time (if no answer, doc. time of each call attempted): 1053 to [facility], report given to AMBROSIO Peres Vitals documented within 30 minutes of discharge?: Yes"
--- NOTE | 2025-02-18 11:26 | PROVIDER PROGRESS NOTE ---
<Statement entered by Sekou Malagon, DO - 02/18/25 16:01> I was present with the medical student on the hospitalist service. I personally verified the history of present illness and performed the physical examination and medical decision making. I have verified the medical students documentation for this encounter and agree with the plan of care below. In addition this is 65-year-old female with PMH of T2DM who presented with bacteremia in the setting of pyelonephritis. She received stenting on hospital day 1. She had Proteus bacteremia as well as Klebsiella and Proteus bacteriuria. She received 7 days of ceftriaxone for which these bacteria were both sensitive. She has remained clinically stable now for the last several days. Her blood sugars have been difficult to manage at times, and are now better controlled on basal and bolus insulin as below. Not resuming on her prior SGLT2 inhibitor given recent complicated urinary tract infection. She is in process of getting out to a fdc facility near her home in [place]. She now has a facility is pending authorization in [place]. This afternoon she had chest pain prompting further interrogation. Chest x-ray without clear focal consolidation. Her EKG is unchanged from admission. She received a dose of nitro without any improvement in her chest pain. Attempted to treat with topical NSAIDs. And will trend troponin at least x 2 this afternoon to ensure that she does not have an NSTEMI. Her pain is atypical in the left lateral chest and seemingly associated with her pacemaker site. Vital signs otherwise stable. Given this acute change [place] [id number] accounting for the risk of cardiac chest pain and possible mortality or morbidity associated with that. Data review as above. New tests ordered as above. Personally interpreted her chest x-ray as it is pending read. Subjective Prog Note Date Prog Note Date: 02/18/25 Prog Note Time: 11:27 Subjective Pt reports feeling: Improved Subjective: Patient is doing well without new pain, fever or chills. Her antibiotics have been discontinued and we are continuing to await SNF placement. Current Medications Current Medications Current Medications: Current Medications Generic Name Dose Route Start Last Admin Trade Name Freq PRN Reason Stop Dose Admin Acetaminophen 650 mg 02/10/25 18:50 02/17/25 21:43 Acetaminophen 325 Mg Tablet PO 650 mg Q4HR PRN Administration Pain 1 to 4, or Fever Hydrocodone Bitart/Acetaminophen 1 tab 02/11/25 10:21 02/17/25 18:04 Hydrocod/Acetam 5/325 Mg Tablet PO 1 tab Q4HR PRN Administration Moderate Pain (Level 4-6) Al Hydroxide/Mg Hydroxide 30 ml 02/13/25 18:33 02/16/25 23:49 Mag Hydrox/Al Hydrox/Simeth 30 Ml Udc PO 30 ml Q4HR PRN Administration INDIGESTION Albuterol/Ipratropium 3 ml 02/10/25 17:39 Ipratropium/Albuterol 3 Ml Neb INH RTQID PRN Shortness of Air/Wheezing Amiodarone HCl 200 mg 02/11/25 21:00 02/18/25 08:30 Amiodarone 200 Mg Tablet PO 200 mg BID SHELLI Administration Bumetanide 2 mg 02/12/25 09:00 02/18/25 08:30 Bumetanide 1 Mg Tablet PO 2 mg DAILY SHELLI Administration Diclofenac Sodium 2 gm 02/13/25 09:06 02/13/25 13:12 Diclofenac Sodium 1% Gel 50 Gm Tube TOP 2 gm QID PRN Administration Mild Pain (Level 1-3) Duloxetine HCl 30 mg 02/11/25 21:00 02/17/25 20:38 Duloxetine 30 Mg Capsule PO 30 mg QPM SHELLI Administration Duloxetine HCl 60 mg 02/11/25 21:00 02/17/25 20:38 Duloxetine 60 Mg Capsule PO 60 mg QPM SHELLI Administration Enoxaparin Sodium 40 mg 02/12/25 12:00 02/17/25 08:24 Enoxaparin 40 Mg/0.4 Ml Syringe SUBQ 40 mg DAILY SHELLI Administration Insulin Glargine-yfgn 50 unit 02/14/25 21:00 02/17/25 20:44 Insulin Glargine-Yfgn 300 Unit/3 Ml Pen SUBQ 50 unit QPM SHELLI Administration Insulin Human Lispro 2 - 10 unit 02/12/25 08:00 02/18/25 08:33 Insulin Lispro 300 Unit/3 Ml Pen SUBQ 4 unit 0800,1200,1700,2100 SHELLI Administration Protocol Insulin Human Lispro 15 unit 02/18/25 08:00 02/18/25 08:34 Insulin Lispro 300 Unit/3 Ml Pen SUBQ 15 unit TIDWM SHELLI Administration Magnesium Hydroxide 2,400 mg 02/18/25 23:50 Magnesium Hydroxide 2,400 Mg/30 Ml Udc PO 02/18/25 23:51 ONCE ONE Multivitamins/Minerals 1 tab 02/11/25 17:00 02/18/25 08:35 Multivitamin W/Minerals Tablet PO 1 tab DAILYWM SHELLI Administration Nystatin 1 applic 02/15/25 21:00 02/18/25 08:31 Nystatin Powder 15 Gm TOP 1 applic BID SHELLI Administration Ondansetron HCl 4 mg 02/10/25 18:50 Ondansetron Odt 4 Mg Tablet TL Q6HR PRN Nausea / Vomiting Ondansetron HCl 4 mg 02/10/25 18:50 Ondansetron 4 Mg/2 Ml Vial IVP Q6HR PRN Nausea / Vomiting Letrozole 2.5 Mg 1 each 02/11/25 21:00 02/17/25 22:23 Tablet PO Not Given QPM SHELLI Polyethylene Glycol 17 gm 02/12/25 14:20 02/18/25 08:30 Polyethylene Glycol 3350 17 Gm Packet PO 17 gm DAILY SHELLI Administration Polyethylene Glycol 17 gm 02/17/25 23:50 Polyethylene Glycol 3350 17 Gm Packet PO DAILY PRN Bowel Protocol Pregabalin 100 mg 02/12/25 19:00 02/18/25 07:02 Pregabalin 100 Mg Capsule PO 100 mg Q6H SHELLI Administration Pregabalin 50 mg 02/12/25 19:00 02/18/25 07:01 Pregabalin 25 Mg Capsule PO 50 mg Q6H SHELLI Administration Senna 8.6 - 17.2 mg 02/14/25 21:00 02/18/25 08:30 Senna 8.6 Mg Tablet PO 8.6 mg DAILY SHELLI Administration Simethicone 80 mg 02/17/25 13:16 02/17/25 16:57 Simethicone Chew 80 Mg Tablet PO 80 mg Q4H PRN Administration Gas Sodium Chloride 10 ml 02/10/25 18:50 Sodium Chloride Flush 0.9% 10 Ml Syringe IVP PRN PRN NEEDED PER PROVIDER ORDERS Sodium Chloride 10 ml 02/11/25 01:00 02/18/25 08:30 Sodium Chloride Flush 0.9% 10 Ml Syringe IVP 10 ml 0100,0900,1700 SHELLI Administration Zinc Oxide 113 gm 02/11/25 21:01 02/13/25 20:49 Cod Liver Oil/Zinc Oxide 113 Gm Tube TOP 1 applic PRN PRN Administration Skin Care Objective Vital Signs/Intake & Output Reviewed Vital Signs: Yes Vital Signs: Vital Signs x48h Temp Pulse Resp BP Pulse Ox 02/18/25 07:40 36.4 C L 73 20 103/56 L 96 Intake & Output: Intake & Output 02/15/25 02/16/25 02/17/25 02/18/25 23:59 23:59 22:59 23:59 Intake Total 660 / 660 1737 / 1737 885 / 885 237 / 237 Output Total 2200 / 2200 2400 / 2400 2300 / 2300 1400 / 1400 Balance -1540 / -1540 -663 / -663 -1415 / -1415 -1163 / -1163 Objective Comments/Other: Gen: Well nourished and well developed. Lying comfortably in bed. No acute distress. Heent: Normocephalic/atraumatic, normal appearance of external ears and nose. Cardiac: Regular rate and rhythm. No murmurs appreciated. No visible JVP elevation. Equal radial pulses 2+. No pitting edema of lower extremities Pulm: On RA. Normal respirations without increased effort. Clear to auscultation throughout without wheezes, rales or rhonchi. Abdomen: Large, soft, rounded. Nontender to palpation without rebound or guarding. No organomegaly. Extremities: Moves all 4 extremities equally. Normal tone. Neuro: A&Ox4. Face symmetric, CN II through XII intact grossly. No focal neurologic deficits. Psych: Good fund of knowledge. Judgment intact. Skin: Decubitus ulcers noted on images - sacral wound and eschar on L heel, Stable per last evaluation 02/12. Lab Results 02/18/25 15:28 02/16/25 08:08 Other Labs: Lab Results x24hrs 02/18/25 02/18/25 02/17/25 Range/Units 11:16 07:31 20:43 POC Whole Bld Glucose 233 183 143 (70-100) mg/dL 02/17/25 02/17/25 02/17/25 Range/Units 17:55 17:51 16:59 POC Whole Bld Glucose 118 83 88 (70-100) mg/dL 11/06/1202/17/25 02/17/25 Range/Units 16:39 16:31 11:37 POC Whole Bld Glucose 64 63 181 (70-100) mg/dL Diagnostic Imaging Diagnostic Imaging Results: positive Final report reviewed Diagnostic Imaging Comments: 02-10-2025 CXR, no comparisons. Moderate perihilar airspace opacities with bilateral interstitial opacities and trace bilateral pleural effusions. Findings are concerning for pulmonary edema. 02-10-2025 CT Head w/o contrast Normal, without mass or hemorrhage. 02-10-2025 CTA pulmonary Normal, without PE or acute process 02-10-2025 CT AP Delayed left nephrogram with a 13 mm nonobstructive stone in the left renal pelvis. Mild stranding of the left ureter. 02-12-2025 CXR Probable improved congestive changes, no new infiltrate or significant pleural effusion seen. 02-13-2025 U/S Abdomen 1. Mild hepatomegaly without focal hepatic pathology. 2. Otherwise unremarkable right upper quadrant ultrasound. Sepsis Event Note (H) Evaluation Current Stage of Sepsis: Sepsis Possible source of Sepsis: positive Genitourinary Sepsis Criteria Sepsis Criteria: Recorded Temperature greater than 38.3C or Less than 36C, Recorded Heart Rate greater than 90 bpm and WBC count greater than 12,000 or less than 4000 Assessment/Plan Problem List (1) Bacteremia due to Gram-negative bacteria: Impression: Completed 7-day IV ceftriaxone (02/10-02/17). Source controlled post stent 02-11. 05/20 blood culture bottles positive for GNB, consistent with as source. UA positive for caban-sensitive Proteus and Klebsiella. Little value for follow-up blood cultures and gram-negative bacteremia as long as sensitive to empiric treatment (Bernadette 2017). - Has been med ready 02/14, awaiting SNF transfer - Daily labs have been d/c (2) Sepsis: Qualifiers: Sepsis acute organ dysfunction status: unspecified Sepsis type: sepsis due to unspecified organism Qualified Code(s): A41.9 - Sepsis, unspecified organism (3) Acute pyelonephritis: (4) Renal calculus, left: Impression: As above. Remains afebrile with resolved leukocytosis. Voiding appropriately with improved dysuria. Cr had remained normal. S/p cystoscopy with stent placement 02-11. Patient presented septic, with tachycardia, leukocytosis, temperature as high as 100.1. CT abdomen/pelvis shows delayed left nephrogram with a 13 mm nonobstructive stone in the left renal pelvis. Mild stranding of the left ureter. UA positive for Proteus, as seen on blood cultures. - Tylenol and [place] PRN for pain - Continue oral hydration (5) Abdominal pain: (6) Alkaline phosphatase elevation: Impression: Improved. Reassured that her abdominal pain is non-obstructive, non-infectious. Suspect this is related to retained gas, constipation. She is continuing to tolerate po without any nausea, passing flatus and BM. Her Abdominal U/S was unremarkable. Her alk phosphate remains elevated with very mild transaminitis. Tbili is normal. - Continue bowel regimen - Encourage mobility as tolerated (7) Diabetes mellitus: Impression: Known hx of T2DM. Patient states she takes 75-86units of Lantus at home in addition to meal time insulin. Also on Jardiance and Ozempic. A1c 11.8%, down from prior ~14%. - Continue Lantus 50U qHS - Decreased Lispro to 15 U qAC with MDSSI - Goal sugars <180, hypoglycemia protocol - Likely resume Ozempic upon discharge. - Do not resume SGLT2i at this time given complicated urinary tract infection Qualifiers: Diabetes mellitus complication status: without complication Diabetes mellitus mcc insulin use: without long term care phlebotomist use Diabetes mellitus type: t ype 2 Qualified Code(s): E11.9 - Type 2 diabetes mellitus without complications (8) Hypokalemia: Impression: Resolved with repletion. Has been intermittently low down to 3.2, while she was NPO for imaging. 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 This diagnosis does not require modification of heparin. 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 No clinical evidence of bleeding. Continuing VTE ppx as long as Plt>50K. - Continue Lovenox (10) Diabetic neuropathy: Qualifiers: Diabetes mellitus complication detail: diabetic mononeuropathy Diabetes mellitus type: type 2 Qualified Code(s): E11.41 - Type 2 diabetes mellitus with diabetic mononeuropathy (11) Chronic, continuous use of opioids: Impression: Patient reports controlled on home Lyrica and regular opiates. - Continue Lyrica, home doses 4 times daily, confirmed with sure scripts. - Tylenol and [place] PRN as above (12) Acute metabolic encephalopathy: Impression: Resolved. Mental status changes attributed to active infection and hyperglycemia. CT head without acute infarct. - Continue home eszopiclone prn for sleep (13) Subclinical hypothyroidism: Impression: TSH elevated, T4 normal suggestive of subclinical hypothyroidism. No harpreet symptoms of hyper or hypothyroidism. She did have a TSH greater than 10 which is indicative of harpreet hypothyroidism, however difficult to assess in her acutely sick state. Her mental status is now back at baseline. No treatment needed at this time. - Recheck TSH and T4 within the next 6 weeks. To wit, sometime in early March (14) Physical deconditioning: (15) Decubitus ulcers: Impression: Ulcer present on arrival. Stage I and stage II. Stable. Images documented. Sacral ulcers and L heel eschar. Patient has had acute illness, very poor mobility. Suspect for some time given sacral ulcer. - PT recommending discharge to SNF, working on selection near her home and other providers in [place]. - Wound care: Every 24-48 hour dressing changes, keep the wound clean and dry. Keep frequent offloading. - Encourage change positions frequently Qualifiers: Laterality: unspecified laterality Pressure injury location: hip P ressure injury stage: stage 1 Qualified Code(s): L89.201 - Pressure ulcer of unspecified hip, stage 1 (16) GINA (obstructive sleep apnea): Impression: Continue CPAP with supplemental 3L O2 at night and for naps (17) COPD (chronic obstructive pulmonary disease): Impression: Not in active exacerbation. Continue albuterol prn. Saturating 92-95 on RA. - Encourage mobility and IS use. Qualifiers: COPD type: unspecified COPD Qualified Code(s): J44.9 - Chronic obstructive pulmonary disease, unspecified (18) Raynaud phenomenon without gangrene: Impression: Patient has been intermittently exhibiting a Raynaud's phenomenon during this hospitalization. It is unclear what is precipitating this. She has not experienced any pain from this. It is merely physical exam findings. It has vacillated between her hands and her feet. Related darkening and a cooling to touch. - Recommend outpatient follow-up, consideration starting on CCB. (19) Aortic valve stenosis: Qualifiers: Cardiac valve disease etiology: etiology unspecified Qualified Code(s): I35.0 - Nonrheumatic aortic (valve) stenosis (20) Pacemaker: Impression: Stable. Patient reports failing valve replacement leading to the recent placement of her pacemaker (in October). She is currently taking amiodarone. Sees cardiology, Dr. Kat Corona in [place], She lives in [place]. She is on a home diuretic, unclear etiology. No prior echoes. Will continue diuresis at home dose. - Continue home dose amiodarone 200mg BID - Continue home dose torsemide 40mg (Formulary equivalent is Bumex 2 mg) - Is supposed to have reinterrogation of her pacemaker in late February, this may need to be rescheduled. Patient is working on this. I spent a total of 41 minutes in the care of this patient today. This time was spent reviewing labs, vital signs, imaging, interviewing and examining the patient, and discussing plan of care with them and their other care providers including case management
[2025-02-18] MEDS: NITROGLYCERIN SL 0.4 MG TABLET SL ONE (14:57)
--- NOTE | 2025-02-18 15:31 | XRAY Report ---
PROCEDURE: XR Chest 1V INDICATIONS: Chest pain TECHNIQUE: One view of the chest was acquired. COMPARISON: None. FINDINGS: Surgical changes and devices: Tunneled right IJ port central venous catheter with tip at the superior cavoatrial junction. Dual-lead pacemaker device with tips overlying the right atrium and right ventricle. Lungs and pleura: Mild interstitial pulmonary opacities. No consolidation. No pleural effusion. No pneumothorax. Mediastinum: Cardiomegaly. Normal contour otherwise. Bones and chest wall: No suspicious bony lesions. Surgical clips in the left axilla. IMPRESSION: Mild interstitial opacities, suggestive of mild interstitial pulmonary edema. Reviewed by: Cornell Millan MD on 02/18/2025 3:28 PM PST Approved by: Cornell Millan MD on 02/18/2025 3:28 PM [facility] Station ID: [id number]
[2025-02-18 15:36] LABS: HCT - HEMATOCRIT 35.0 % (37.0-47.0); HGB - HEMOGLOBIN 10.4 g/dL (12.0-16.0); NRBC ABSOLUTE COUNT (AUTO) 0.00 x10^3/uL; NUCLEATED RED BLOOD CELLS AUTO 0.0 /100WBC; RED CELL DISTRIBUTION WIDTH 22.7 % (12.0-15.0)
[2025-02-18 15:46] LABS: SLIDE REVIEW? Indicated
[2025-02-18 15:57] LABS: BUN - BLOOD UREA NITROGEN 20.0 mg/dL (6-20); CARBON DIOXIDE - CO2 34.0 mmol/L (21-32); CREATININE 0.7 mg/dL (0.6-1.3); GFR - MDRD 84.0 (>89)
[2025-02-18 16:11] LABS: TROPONIN I HIGH SENSITIVITY 23.1 ng/L (2.3-14.8)
[2025-02-18 16:13] LABS: PLATELET ESTIMATE, MANUAL NORMAL (130-450,000) (NORMAL); PLATELET MORPHOLOGY NORMAL APPEARANCE (NORMAL)
[2025-02-18] MEDS: MAGNESIUM HYDROXIDE 2,400 MG/30 ML UDC PO ONE (21:03)
--- NOTE | 2025-02-19 12:07 | PROVIDER PROGRESS NOTE ---
Subjective Prog Note Date Prog Note Date: 02/19/25 Prog Note Time: 12:05 Subjective Pt reports feeling: Improved Subjective: Patient is doing well today. Denies fevers and chills. Has been feeling constipated. Current Medications Current Medications Current Medications: Current Medications Generic Name Dose Route Start Last Admin Trade Name Freq PRN Reason Stop Dose Admin Acetaminophen 650 mg 02/10/25 18:50 02/17/25 21:43 Acetaminophen 325 Mg Tablet PO 650 mg Q4HR PRN Administration Pain 1 to 4, or Fever Hydrocodone Bitart/Acetaminophen 1 tab 02/11/25 10:21 02/18/25 16:29 Hydrocod/Acetam 5/325 Mg Tablet PO 1 tab Q4HR PRN Administration Moderate Pain (Level 4-6) Al Hydroxide/Mg Hydroxide 30 ml 02/13/25 18:33 02/18/25 16:28 Mag Hydrox/Al Hydrox/Simeth 30 Ml Udc PO 30 ml Q4HR PRN Administration INDIGESTION Albuterol/Ipratropium 3 ml 02/10/25 17:39 Ipratropium/Albuterol 3 Ml Neb INH RTQID PRN Shortness of Air/Wheezing Amiodarone HCl 200 mg 02/11/25 21:00 02/19/25 08:37 Amiodarone 200 Mg Tablet PO 200 mg BID SHELLI Administration Bumetanide 2 mg 02/12/25 09:00 02/19/25 08:37 Bumetanide 1 Mg Tablet PO 2 mg DAILY SHELLI Administration Diclofenac Sodium 2 gm 02/13/25 09:06 02/18/25 15:09 Diclofenac Sodium 1% Gel 50 Gm Tube TOP 2 gm QID PRN Administration Mild Pain (Level 1-3) Duloxetine HCl 30 mg 02/11/25 21:00 02/18/25 20:17 Duloxetine 30 Mg Capsule PO 30 mg QPM SHELLI Administration Duloxetine HCl 60 mg 02/11/25 21:00 02/18/25 20:17 Duloxetine 60 Mg Capsule PO 60 mg QPM SHELLI Administration Enoxaparin Sodium 40 mg 02/12/25 12:00 02/19/25 08:37 Enoxaparin 40 Mg/0.4 Ml Syringe SUBQ 40 mg DAILY SHELLI Administration Insulin Glargine-yfgn 50 unit 02/14/25 21:00 02/18/25 20:57 Insulin Glargine-Yfgn 300 Unit/3 Ml Pen SUBQ 50 unit QPM SHELLI Administration Insulin Human Lispro 2 - 10 unit 02/12/25 08:00 02/19/25 11:45 Insulin Lispro 300 Unit/3 Ml Pen SUBQ 2 unit 0800,1200,1700,2100 SHELLI Administration Protocol Insulin Human Lispro 15 unit 02/18/25 08:00 02/19/25 11:46 Insulin Lispro 300 Unit/3 Ml Pen SUBQ 15 unit TIDWM SHELLI Administration Multivitamins/Minerals 1 tab 02/11/25 17:00 02/19/25 08:37 Multivitamin W/Minerals Tablet PO 1 tab DAILYWM SHELLI Administration Nystatin 1 applic 02/15/25 21:00 02/19/25 08:37 Nystatin Powder 15 Gm TOP 1 applic BID SHELLI Administration Ondansetron HCl 4 mg 02/10/25 18:50 Ondansetron Odt 4 Mg Tablet TL Q6HR PRN Nausea / Vomiting Ondansetron HCl 4 mg 02/10/25 18:50 Ondansetron 4 Mg/2 Ml Vial IVP Q6HR PRN Nausea / Vomiting Letrozole 2.5 Mg 1 each 02/11/25 21:00 02/18/25 20:24 Tablet PO Not Given QPM SHELLI Polyethylene Glycol 17 gm 02/12/25 14:20 02/19/25 08:35 Polyethylene Glycol 3350 17 Gm Packet PO 17 gm DAILY SHELLI Administration Polyethylene Glycol 17 gm 02/17/25 23:50 02/18/25 16:28 Polyethylene Glycol 3350 17 Gm Packet PO 17 gm DAILY PRN Administration Bowel Protocol Pregabalin 100 mg 02/12/25 19:00 02/19/25 06:07 Pregabalin 100 Mg Capsule PO 100 mg Q6H SHELLI Administration Pregabalin 50 mg 02/12/25 19:00 02/19/25 06:06 Pregabalin 25 Mg Capsule PO 50 mg Q6H SHELLI Administration Senna 8.6 - 17.2 mg 02/14/25 21:00 02/19/25 08:37 Senna 8.6 Mg Tablet PO 8.6 mg DAILY SHELLI Administration Simethicone 80 mg 02/17/25 13:16 02/18/25 16:29 Simethicone Chew 80 Mg Tablet PO 80 mg Q4H PRN Administration Gas Sodium Chloride 10 ml 02/10/25 18:50 Sodium Chloride Flush 0.9% 10 Ml Syringe IVP PRN PRN NEEDED PER PROVIDER ORDERS Sodium Chloride 10 ml 02/11/25 01:00 02/19/25 08:38 Sodium Chloride Flush 0.9% 10 Ml Syringe IVP 10 ml 0100,0900,1700 SHELLI Administration Zinc Oxide 113 gm 02/11/25 21:01 02/13/25 20:49 Cod Liver Oil/Zinc Oxide 113 Gm Tube TOP 1 applic PRN PRN Administration Skin Care Objective Vital Signs/Intake & Output Reviewed Vital Signs: Yes Vital Signs: Vital Signs x48h Temp Pulse Resp BP Pulse Ox O2 Flow Rate 02/19/25 07:35 36.4 C L 75 18 109/57 L 92 2 Intake & Output: Intake & Output 02/16/25 02/17/25 02/18/25 02/19/25 23:59 22:59 23:59 23:59 Intake Total 1737 / 1737 885 / 885 917 / 917 537 / 537 Output Total 2400 / 2400 2300 / 2300 3350 / 3350 1400 / 1400 Balance -663 / -663 -1415 / -1415 -2433 / -2433 -863 / -863 Objective Comments/Other: Gen: Well nourished and well developed. Sitting up and eating in bed. No acute distress. Heent: Normocephalic/atraumatic, normal appearance of external ears and nose. Cardiac: Regular rate and rhythm. No murmurs appreciated. No visible JVP elevation. Equal radial pulses 2+. No pitting edema of lower extremities Pulm: On RA. Normal respirations without increased effort. Clear to auscultation throughout without wheezes, rales or rhonchi. Abdomen: Large, soft, rounded. Nontender to palpation without rebound or guarding. No organomegaly. Extremities: Moves all 4 extremities equally. Normal tone. Neuro: A&Ox4. Face symmetric, CN II through XII intact grossly. No focal neurologic deficits. Psych: Good fund of knowledge. Judgment intact. Skin: Decubitus ulcers noted on images - sacral wound and eschar on L heel, Stable per last evaluation 02/12. Lab Results 02/18/25 15:28 02/18/25 15:28 Other Labs: Lab Results x24hrs 02/19/25 02/19/25 02/18/25 Range/Units 11: 07:30 20:51 WBC (4.8-10.8) x10^3/uL RBC (4.20-5.40) 10^6/uL Hgb (12.0-16.0) g/dL Hct (37.0-47.0) % MCV (81.0-99.0) fL MCH (27.0-31.0) pg MCHC (32.0-36.0) g/dL RDW (12.0-15.0) % Plt Count (130-450) 10^3/uL Neut # (Auto) (1.5-6.6) 10^3/uL Lymph # (Auto) (1.5-3.5) 10^3/uL Sanders # (Auto) (0.0-1.0) 10^3/uL Eos # (Auto) (0.0-0.7) 10^3/uL Baso # (Auto) (0.0-0.1) 10^3/uL Absolute Nucleated RBC x10^3/uL Nucleated RBC % /100WBC Manual Slide Review Platelet Estimate (NORMAL) Platelet Morphology (NORMAL) RBC Morph Micro Appear (NORMAL) Sodium (135-145) mmol/L Potassium (3.5-4.5) mmol/L Chloride (101-111) mmol/L Carbon Dioxide (21-32) mmol/L Anion Gap (6-13) BUN (6-20) mg/dL Creatinine (0.6-1.3) mg/dL Estimated GFR (MDRD) (>89) Glucose (74-104) mg/dL POC Whole Bld Glucose 169 125 115 (70-100) mg/dL Calcium (8.5-10.3) mg/dL Troponin I High Sens (2.3-14.8) ng/L 02/18/25 02/18/25 02/18/25 Range/Units 20:46 18:25 16:39 WBC (4.8-10.8) x10^3/uL RBC (4.20-5.40) 10^6/uL Hgb (12.0-16.0) g/dL Hct (37.0-47.0) % MCV (81.0-99.0) fL MCH (27.0-31.0) pg MCHC (32.0-36.0) g/dL RDW (12.0-15.0) % Plt Count (130-450) 10^3/uL Neut # (Auto) (1.5-6.6) 10^3/uL Lymph # (Auto) (1.5-3.5) 10^3/uL Sanders # (Auto) (0.0-1.0) 10^3/uL Eos # (Auto) (0.0-0.7) 10^3/uL Baso # (Auto) (0.0-0.1) 10^3/uL Absolute Nucleated RBC x10^3/uL Nucleated RBC % /100WBC Manual Slide Review Platelet Estimate (NORMAL) Platelet Morphology (NORMAL) RBC Morph Micro Appear (NORMAL) Sodium (135-145) mmol/L Potassium (3.5-4.5) mmol/L Chloride (101-111) mmol/L Carbon Dioxide (21-32) mmol/L Anion Gap (6-13) BUN (6-20) mg/dL Creatinine (0.6-1.3) mg/dL Estimated GFR (MDRD) (>89) Glucose (74-104) mg/dL POC Whole Bld Glucose 147 147 (70-100) mg/dL Calcium (8.5-10.3) mg/dL Troponin I High Sens 25.9 H* (2.3-14.8) ng/L 02/18/25 02/18/25 Range/Units 15:28 15:28 WBC 8.7 (4.8-10.8) x10^3/uL RBC 4.84 (4.20-5.40) 10^6/uL Hgb 10.4 L (12.0-16.0) g/dL Hct 35.0 L (37.0-47.0) % MCV 72.3 L (81.0-99.0) fL MCH 21.5 L (27.0-31.0) pg MCHC 29.7 L (32.0-36.0) g/dL RDW 22.7 H (12.0-15.0) % Plt Count (130-450) 10^3/uL Neut # (Auto) 5.1 (1.5-6.6) 10^3/uL Lymph # (Auto) 2.1 (1.5-3.5) 10^3/uL Sanders # (Auto) 1.3 H (0.0-1.0) 10^3/uL Eos # (Auto) 0.2 (0.0-0.7) 10^3/uL Baso # (Auto) 0.0 (0.0-0.1) 10^3/uL Absolute Nucleated RBC 0.00 x10^3/uL Nucleated RBC % 0.0 /100WBC Manual Slide Review Indicated Platelet Estimate NORMAL (130-450,000) (NORMAL) Platelet Morphology NORMAL APPEARANCE (NORMAL) RBC Morph Micro Appear 1+ MICROCYTOSIS 1+ HYPOCHROMASIA (NORMAL) Sodium 135 (135-145) mmol/L Potassium 3.5 (3.5-4.5) mmol/L Chloride 93 L (101-111) mmol/L Carbon Dioxide 34 H (21-32) mmol/L Anion Gap 8.0 (6-13) BUN 20 (6-20) mg/dL Creatinine 0.7 (0.6-1.3) mg/dL Estimated GFR (MDRD) 84 L (>89) Glucose 182 H (74-104) mg/dL POC Whole Bld Glucose (70-100) mg/dL Calcium 8.5 (8.5-10.3) mg/dL Troponin I High Sens 23.1 H* (2.3-14.8) ng/L Diagnostic Imaging Diagnostic Imaging Results: positive Final report reviewed Diagnostic Imaging Comments: 02-10-2025 CXR, no comparisons. Moderate perihilar airspace opacities with bilateral interstitial opacities and trace bilateral pleural effusions. Findings are concerning for pulmonary edema. 02-10-2025 CT Head w/o contrast Normal, without mass or hemorrhage. 02-10-2025 CTA pulmonary Normal, without PE or acute process 02-10-2025 CT AP Delayed left nephrogram with a 13 mm nonobstructive stone in the left renal pelvis. Mild stranding of the left ureter. 02-12-2025 CXR Probable improved congestive changes, no new infiltrate or significant pleural effusion seen. 02-13-2025 U/S Abdomen 1. Mild hepatomegaly without focal hepatic pathology. 2. Otherwise unremarkable right upper quadrant ultrasound. Sepsis Event Note (H) Evaluation Current Stage of Sepsis: Sepsis Possible source of Sepsis: positive Genitourinary Sepsis Criteria Sepsis Criteria: Recorded Temperature greater than 38.3C or Less than 36C, Recorded Heart Rate greater than 90 bpm and WBC count greater than 12,000 or less than 4000 Assessment/Plan Problem List (1) Bacteremia due to Gram-negative bacteria: Impression: Completed 7-day IV ceftriaxone (02/10-02/17). Source controlled post stent 02-11. 05/20 blood culture bottles positive for GNB, consistent with as source. UA positive for caban-sensitive Proteus and Klebsiella. Little value for follow-up blood cultures and gram-negative bacteremia as long as sensitive to empiric treatment (Bernadette 2017). - Has been med ready 02/14, awaiting SNF transfer - Daily labs have been d/c (2) Sepsis: Qualifiers: Sepsis acute organ dysfunction status: unspecified Sepsis type: sepsis due to unspecified organism Qualified Code(s): A41.9 - Sepsis, unspecified organism (3) Acute pyelonephritis: (4) Renal calculus, left: Impression: As above. Remains afebrile with resolved leukocytosis. Voiding appropriately with improved dysuria. Cr normal. S/p cystoscopy with stent placement 02-11. Patient presented septic, with tachycardia, leukocytosis, temperature as high as 100.1. CT abdomen/pelvis shows delayed left nephrogram with a 13 mm nonobstructive stone in the left renal pelvis. Mild stranding of the left ureter. UA positive for Proteus, as seen on blood cultures. - Tylenol and [place] PRN for pain - Continue oral hydration (5) Abdominal pain: (6) Alkaline phosphatase elevation: Impression: Improved. Reassured that her abdominal pain is non-obstructive, non-infectious. Suspect this is related to retained gas, constipation. She is continuing to tolerate po without any nausea, passing flatus and BM. Her Abdominal U/S was unremarkable. Her alk phosphate remains elevated with very mild transaminitis. Tbili is normal. - Continue bowel regimen - Encourage mobility as tolerated (7) Diabetes mellitus: Impression: Well controlled now on 50U Lantus. Known hx of T2DM. Patient states she takes 75-86units of Lantus at home in addition to meal time insulin. Also on Jardiance and Ozempic. A1c 11.8%, down from prior ~14%. - Continue Lantus 50U qHS - Decreased Lispro to 15 U qAC with MDSSI - Goal sugars <180, hypoglycemia protocol - Likely resume Ozempic upon discharge. - Do not resume SGLT2i at this time given complicated urinary tract infection Qualifiers: Diabetes mellitus complication status: without complication Diabetes mellitus senior care insulin use: without long distance billing operator use Diabetes mellitus type: t ype 2 Qualified Code(s): E11.9 - Type 2 diabetes mellitus without complications (8) Aortic valve stenosis: Qualifiers: Cardiac valve disease etiology: etiology unspecified Qualified Code(s): I35.0 - Nonrheumatic aortic (valve) stenosis (9) Pacemaker: Impression: Had chest pain around her pacemaker site yesterday, this has now resolved. Cardiac work-up was unremarkable. EKG unchanged, CXR negative, stable troponins. Patient reports failing valve replacement leading to the recent placement of her pacemaker (in October). She is currently taking amiodarone. Sees cardiology, Dr. Kat Corona in [place], She lives in [place]. She is on a home diuretic, unclear etiology. No prior echoes. Will continue diuresis at home dose. - Continue home dose amiodarone 200mg BID - Continue home dose torsemide 40mg (Formulary equivalent is Bumex 2 mg) - Is supposed to have reinterrogation of her pacemaker in late February, this may need to be rescheduled. Patient is working on this. 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 Manual estimate of platelets normal. - Continue Lovenox (11) Hypokalemia: Impression: Resolved with repletion. Has been intermittently low down to 3.2, while she was NPO for imaging. (12) Diabetic neuropathy: Qualifiers: Diabetes mellitus complication detail: diabetic mononeuropathy Diabetes mellitus type: type 2 Qualified Code(s): E11.41 - Type 2 diabetes mellitus with diabetic mononeuropathy (13) Chronic, continuous use of opioids: Impression: Patient reports controlled on home Lyrica and regular opiates. - Continue Lyrica, home doses 4 times daily, confirmed with sure scripts. - Tylenol and [place] PRN as above (14) Acute metabolic encephalopathy: Impression: Resolved. Mental status changes attributed to active infection and hyperglycemia. CT head without acute infarct. - Continue home eszopiclone prn for sleep (15) Subclinical hypothyroidism: Impression: TSH elevated, T4 normal suggestive of subclinical hypothyroidism. No harpreet symptoms of hyper or hypothyroidism. She did have a TSH greater than 10 which is indicative of harpreet hypothyroidism, however difficult to assess in her acutely sick state. Her mental status is now back at baseline. No treatment needed at this time. - Recheck TSH and T4 within the next 6 weeks. To wit, sometime in early March (16) Physical deconditioning: (17) Decubitus ulcers: Impression: Ulcer present on arrival. Stage I and stage II. Stable. Images documented. Sacral ulcers and L heel eschar. Patient has had acute illness, very poor mobility. Suspect for some time given sacral ulcer. - PT recommending discharge to SNF, working on selection near her home and other providers in [place]. - Wound care: Every 24-48 hour dressing changes, keep the wound clean and dry. Keep frequent offloading. - Encourage change positions frequently Qualifiers: Laterality: unspecified laterality Pressure injury location: hip P ressure injury stage: stage 1 Qualified Code(s): L89.201 - Pressure ulcer of unspecified hip, stage 1 (18) GINA (obstructive sleep apnea): Impression: Continue CPAP with supplemental 3L O2 at night and for naps (19) COPD (chronic obstructive pulmonary disease): Impression: Not in active exacerbation. Continue albuterol prn. Saturating 92-95 on RA. - Encourage mobility and IS use. Qualifiers: COPD type: unspecified COPD Qualified Code(s): J44.9 - Chronic obstructive pulmonary disease, unspecified (20) Raynaud phenomenon without gangrene: Impression: Patient has been intermittently exhibiting a Raynaud's phenomenon during this hospitalization. It is unclear what is precipitating this. She has not experienced any pain from this. It is merely physical exam findings. It has vacillated between her hands and her feet. Related darkening and a cooling to touch. - Recommend outpatient follow-up, consideration starting on [facility].
[2025-02-19] MEDS: INSULIN LISPRO 300 UNIT/3 ML PEN SUBQ SCH (17:12)
[2025-02-19] MEDS: DOCUSATE SODIUM 100 MG CAPSULE PO SCH (20:58)
[2025-02-19] MEDS ORDERED: INSULIN LISPRO 300 UNIT/3 ML PEN SUBQ SCH (21:00)
[2025-02-20 09:51] VITALS: BP 112/67; TEMP 97.7; O2SAT 96
== END 2025-02-20 10:15 | DRG 853 ==
LOC: ED 14:29 → MS2 14:29 → SUATTDRO 02-11 07:24
PROVIDERS: ADMIT Internal Medicine; ATTEND Student in an Organized Health Care Education/Training Program
DX: Z79.891 Long term (current) use of opiate analgesic; E11.21 Type 2 diabetes mellitus with diabetic nephropathy; L89.622 Pressure ulcer of left heel, stage 2; Z95.0 Presence of cardiac pacemaker; K59.00 Constipation, unspecified; Z79.85 Long-term (current) use of injectable non-insulin antidiabetic drugs; G93.41 Metabolic encephalopathy; J44.9 Chronic obstructive pulmonary disease, unspecified; N10 Acute pyelonephritis; R79.89 Other specified abnormal findings of blood chemistry; N20.0 Calculus of kidney; A41.9 Sepsis, unspecified organism; G47.33 Obstructive sleep apnea (adult) (pediatric); D75.82 Heparin induced thrombocytopenia (HIT); Z79.4 Long term (current) use of insulin; Z95.2 Presence of prosthetic heart valve; A41.59 Other Gram-negative sepsis; R74.8 Abnormal levels of other serum enzymes; I73.00 Raynaud's syndrome without gangrene; L89.152 Pressure ulcer of sacral region, stage 2; E03.8 Other specified hypothyroidism; E11.65 Type 2 diabetes mellitus with hyperglycemia; R53.1 Weakness; E66.01 Morbid (severe) obesity due to excess calories; D64.9 Anemia, unspecified; Z87.442 Personal history of urinary calculi; E11.41 Type 2 diabetes mellitus with diabetic mononeuropathy; E87.6 Hypokalemia; Z68.42 Body mass index [BMI] 45.0-49.9, adult